=== PATIENT | male | born 1995 | race Caucasian/White ===

== ENCOUNTER 2016-03-26 14:34 | Inpatient (IN) | payer OTHER ==
[2016-03-26 15:03] VITALS: BMI 30.7
[2016-03-26] MEDS ORDERED: SODIUM CHLORIDE 0.9% 1000 ML INFUS.BAG IV PRN (15:28)
[2016-03-26] MEDS ORDERED: SODIUM CHLORIDE 1,000 ML IV ONE (15:28)
--- NOTE | 2016-03-26 15:28 | PDOC ---
History of Present Illness - General Exam Limitations: Clinical Condition - History of Present Illness Initial Comments: 03/26/16 15:34 The patient is a 20-year-old man, from [facility], with a past medical history cerebral palsy, gastroesophageal reflux disease and seizure disorders who presents to the emergency department via EMS for further evaluation of a fever. Upon ER arrival, patient is found to have a temperature of 101.0, HR of 120 and RR of 30 and was immediately placed on a non- rebreather. Upon patient interview, he reports abdominal pain, cough, chills and states that he believes he has a chest cold. History of Present Illness is Limited. Allergies: None Known Past Surgical History: None reported Social History: No tobacco, ETOH and recreational drug use <Atiya Eagle - Last Filed: 03/26/16 15:40> <Kevin Remy - Last Filed: 03/26/16 17:15> - General Chief Complaint: SIRS, Suspected/Possible Stated Complaint: FEVER Time Seen by Provider: 03/26/16 15:19 Past History <Atiya Eagle - Last Filed: 03/26/16 15:40> - Past Medical History Anemia: No Asthma: No Cancer: No Cardiac Disorders: No CVA: No COPD: No CHF: No Dementia: No Diabetes: No GI Disorders: Yes (GERD) Disorders: No HTN: No Hypercholesterolemia: No Liver Disease: No Psychiatric Problems: Yes (DEPRESSION W.PHSYCHOTIC FEATURES,BIPOLAR) Suicide Attempt (Hx): No Seizures: Yes Thyroid Disease: No - Surgical History Abdominal Surgery: No Appendectomy: No Cardiac Surgery: No Cholecystectomy: No Lung Surgery: No Neurologic Surgery: No Orthopedic Surgery: No - Immunization History Immunization Up to Date: Yes - Psycho/Social/Smoking Cessation Hx Anxiety: No Suicidal Ideation: No Smoking History: Never smoked Have you smoked in the past 12 months: No Hx Alcohol Use: No Drug/Substance Use Hx: No Substance Use Type: None Hx Substance Use Treatment: No <Kevin Remy - Last Filed: 03/26/16 17:15> - Past Medical History Allergies/Adverse Reactions: Allergies Allergy/AdvReac Type Severity Reaction Status Date / Time No Known Allergies Allergy Verified 03/26/16 14:54 Home Medications: Ambulatory Orders Bupropion HCl [Wellbutrin -] 200 mg PO HS 03/22/14 Melatonin 6 mg PO HS 03/22/14 Quetiapine Fumarate [Seroquel] 300 mg PO TID 03/22/14 Ascorbic Acid [C-1000] 1,000 mg PO DAILY 08/08/14 Sennosides [Senna -] 2 tab PO BID 08/08/14 Zinc Sulfate 220 mg PO DAILY 08/08/14 Loratadine [Claritin -] 10 mg PO DAILY 06/14/15 Bupropion HCl [Wellbutrin -] 200 mg PO HS tablet 06/21/15 Multivitamins [Multivit ([facility] Formulary)] 1 tab PO DAILY tab 06/21/15 Polyethylene Glycol 3350 [Miralax (For Daily Use) -] 17 gm PO TID #1 bottle Risperidone [Risperdal -] 2 mg PO TID tablet 06/21/15 Review of Systems - Review of Systems Able to Perform ROS?: Yes (Limited 2/2 CP) Constitutional: Yes: Chills, Fever HEENTM: No: Recent change in vision Respiratory: Yes: Cough, Shortness of Breath Cardiac (ROS): No: Chest Pain ABD/GI: No: Diarrhea, Vomiting Neurological: No: Headache <Kevin Remy - Last Filed: 03/26/16 17:15> *Physical Exam - Vital Signs Last Vital Signs Temp Pulse Resp BP Pulse Ox 101.0 F H 120 H 30 H 112/71 100 03/26/16 14:54 03/26/16 14:54 03/26/16 14:54 03/26/16 14:54 03/26/16 14:54 - Physical Exam Comments: 03/26/16 15:34 GENERAL: CP but alert and conversant. Baseline bed bound. Warm to touch. HEAD: Normal with no signs of trauma. EYES: Pupils equal, round and reactive to light, extraocular movements intact, sclera anicteric, conjunctiva clear with no pallor. ENT: Ears normal, nares patent, oropharynx clear without exudates. Moist mucous membranes. NECK: Normal range of motion, supple without lymphadenopathy, JVD, or masses. LUNGS: Decreased and distant breath sounds at the right base No wheeze/ crackles. HEART: Tachycardic,regular rate and rhythm, normal S1 and S2 without murmur or rub. ABDOMEN: Soft/nontender/nondistended. BS wnl. No guarding or rebound. No palpable masses. No hepatosplenomegaly. EXTREMITIES:Baseline muscle atrophy secondary to underlying disease. Baseline extremity contractors. No focal swelling of cellulitis. NEUROLOGICAL: Cranial nerves II through XII grossly intact. Normal speech.. PSYCH: Normal mood, normal affect. SKIN: Warm, Dry, normal turgor, no rashes or lesions noted. <Atiya Eagle - Last Filed: 03/26/16 15:40> - Vital Signs Last Vital Signs Temp Pulse Resp BP Pulse Ox 101.0 F H 120 H 30 H 112/71 100 03/26/16 14:54 03/26/16 14:54 03/26/16 14:54 03/26/16 14:54 03/26/16 14:54 <Kevin Remy - Last Filed: 03/26/16 17:15> ED Treatment Course - LABORATORY CBC & Chemistry Diagram: 03/26/16 16:38 03/26/16 16:38 <Kevin Remy - Last Filed: 03/26/16 17:15> Medical Decision Making - Critical Care Time Total Critical Care Time (minutes): 30 Critical Care Statement: The care of this patient involved high complexity decision making to prevent further life threatening deterioration of the patient 's condition and/or to evalute & treat vital organ system(s) failure or risk of failure. - Medical Decision Making 03/26/16 15:58 A portion of this note was documented by scribe services under my direction. I have reviewed the details of the note, within reason, and agree with the documentation with the following case summary and management plan written by me. 20-year-old male from [facility] with history of CP presents with fever and difficulty breathing. Exam as noted, febrile, tachycardic, tachypneic Abnormal breath sounds at the right base and right mid lung field 20-year-old male with sepsis, possibly secondary to pneumonia. Mental status is at baseline. Sepsis protocol initiated Tylenol for fever Chest x-ray, EKG Antibiotics Admission 03/26/16 16:44 CXR shows L sided infiltrates, treated for HCAP. Awaiting labs and admission. 03/26/16 17:15 CBC normal. Admit to Hospitalist service. <Kevin Remy - Last Filed: 03/26/16 17:15> *DC/Admit/Observation/Transfer <Atiya Eagle - Last Filed: 03/26/16 15:40> - Discharge Dispostion Admit: Yes <Kevin Remy - Last Filed: 03/26/16 17:15> Diagnosis at time of Disposition: Sepsis Qualifiers: Sepsis type: sepsis due to unspecified organism Qualified Code(s): A41.9 - Sepsis, unspecified organism Cerebral palsy Qualifiers: Cerebral palsy type: unspecified type Qualified Code(s): G80.9 - Cerebral palsy , unspecified Pneumonia Qualifiers: Pneumonia type: due to unspecified organism Laterality: left Lung location: lower lobe of lung Qualified Code(s): J18.9 - Pneumonia, unspecified organism - Discharge Dispostion Condition at time of disposition: Fair - Referrals Referrals: Gwyn Ordonez [Primary Care Provider] -
[2016-03-26] MEDS ORDERED: ACETAMINOPHEN 1000 MG/100 ML VIAL (NON FORMULARY) IVPB ONE (15:29)
[2016-03-26] MEDS ORDERED: VANCOMYCIN 1,000 MG in DEXTROSE 5%-WATER - 250 ML IVPB ONE (16:30)
[2016-03-26] MEDS ORDERED: LEVOFLOXACIN 500 MG IVPB 100 ML IVPB ONE ×2 (16:30→16:47)
[2016-03-26 16:46] LABS: BASOPHIL 0.5 % (0-2.0); EOSINOPHIL 1.8 % (0-4.5); MCH 28.9 pg (25.7-33.7); MCHC 33.5 g/dl (32.0-35.9); MEAN CELL VOLUME 86.3 fl (80-96); MEAN PLT VOLUME 7.5 fl (7.5-11.1); NEUTROPHILS 68.5 % (42.8-82.8); PLATELET COUNT 260 K/MM3 (134-434); RDW 13.6 % (11.9-15.9); WHITE BLOOD COUNT 8.6 K/mm3 (4.0-10.0)
[2016-03-26] MEDS ORDERED: ACETAMINOPHEN INJECTION 100 ML IVPB ONE (16:47)
[2016-03-26 16:49] LABS: VENOUS BLOOD GAS HCO3 24.7 meq/L (22-29); VENOUS PH 7.42 (7.31-7.41)
[2016-03-26 17:19] LABS: ALBUMIN 3.8 g/dl (3.4-5.0); ANION GAP 8 (8-16); CALCIUM 8.7 mg/dL (8.5-10.1); CO2 28 mmol/L (21-32); GLUCOSE,RANDOM 96 mg/dL (74-106)
[2016-03-26 17:20] LABS: INR 1.25 (0.82-1.09); PROTHROMBIN TIME (PATIENT) 13.8 SEC (9.98-11.88)
[2016-03-26 17:23] LABS: ACTIVATED PTT 32.4 SECONDS (26.9-34.4)
[2016-03-26 17:24] LABS: ALK PHOS 109 U/L (45-117); BILIRUBIN,TOTAL 0.5 mg/dL (0.2-1.0); CREATININE 0.7 mg/dL (0.7-1.3); SGOT/AST 12 U/L (15-37); SGPT/ALT 23 U/L (12-78); TOT PROT 7.1 g/dl (6.4-8.2); TROPONIN I < 0.02 ng/ml (0.00-0.05)
--- NOTE | 2016-03-26 19:15 | PN ---
[id number] the patient. I reviewed the resident's note and discussed the case with the resident. I agree with the resident's findings and plan as documented. SUBJECTIVE: 20 yo male presenting with fever and ride-sided posterior thoracic pain for 2 days. The patient rates the pain as a 7/10. He also notes associated nausea, productive cough with green and white sputum. Patient also reports chronic abdominal discomfort and distension. PMH: Cerebral palsy, GERD, seizure disorders, abdominal distension PSH: none reported SH: No tobacco, ETOH and recreational drug use OBJECTIVE: Last Vital Signs Temp Pulse Resp BP Pulse Ox 101.0 F H 120 H 30 H 112/71 100 03/26/16 14:54 03/26/16 14:54 03/26/16 14:54 03/26/16 14:54 03/26/16 14:54 GENERAL: Awake, alert, and fully oriented, in no acute distress HEENT: Atraumatic. PERRLA, EOMI. Moist mucosa. No JVD LUNGS: No distress, speaks full sentences, clear to auscultation bilaterally HEART: Regular rate and rhythm, normal S1 and S2, no murmurs, rubs or gallops, peripheral pulses normal and equal bilaterally. ABDOMEN: Tense, distended, normoactive bowel sounds. No guarding, no rebound. No masses EXTREMITIES: Normal inspection, Normal range of motion, no edema. No clubbing or cyanosis. NEUROLOGICAL: Cranial nerves II through XII grossly intact. Normal speech, normal gait, no focal sensorimotor deficits SKIN: Warm, Dry, normal turgor, no rashes or lesions noted. CBCD WBC 8.6 K/mm3 (4.0-10.0) D 03/26/16 16:38 RBC 4.54 M/mm3 (4.00-5.60) 03/26/16 16:38 Hgb 13.1 GM/dL (11.7-16.9) 03/26/16 16:38 Hct 39.2 % (35.4-49) 03/26/16 16:38 MCV 86.3 fl (80-96) 03/26/16 16:38 MCHC 33.5 g/dl (32.0-35.9) 03/26/16 16:38 RDW 13.6 % (11.9-15.9) 03/26/16 16:38 Plt Count 260 K/MM3 (134-434) 03/26/16 16:38 MPV 7.5 fl (7.5-11.1) 03/26/16 16:38 CMP Sodium 141 mmol/L (136-145) 03/26/16 16:38 Potassium 4.3 mmol/L (3.5-5.1) 03/26/16 16:38 Chloride 105 mmol/L (98-107) 03/26/16 16:38 Carbon Dioxide 28 mmol/L (21-32) 03/26/16 16:38 Anion Gap 8 (8-16) 03/26/16 16:38 BUN 8 mg/dL (7-18) 03/26/16 16:38 Creatinine 0.7 mg/dL (0.7-1.3) 03/26/16 16:38 Creat Clearance w eGFR > 60 (>60) 03/26/16 16:38 Calcium 8.7 mg/dL (8.5-10.1) 03/26/16 16:38 Total Bilirubin 0.5 mg/dL (0.2-1.0) D 03/26/16 16:38 AST 12 U/L (15-37) L 03/26/16 16:38 ALT 23 U/L (12-78) 03/26/16 16:38 Alkaline Phosphatase 109 U/L (45-117) 03/26/16 16:38 Total Protein 7.1 g/dl (6.4-8.2) 03/26/16 16:38 Albumin 3.8 g/dl (3.4-5.0) 03/26/16 16:38 Chest X-Ray Impression: Left parahilar, left retrocardiac infiltrate is noted. No evidence of pleural effusion or pneumothorax. Shallow inspiration. Air distended colon is seen in upper abdomen beneath the diaphragm. ASSESSMENT AND PLAN: 1.) HCAP -Antibiotics vancomycin, levaquin -Nebulizations Q6 hours -Tylenol PRN -Continue home medications Documentation prepared by Tia López, acting as medical imaging technologist for Juanis Johnson M.D. <Juanis Johnson - Last Filed: 04/03/16 19:58> Teaching Attending Note Name of Resident: Shivani Love
[2016-03-26] MEDS ORDERED: ALBUTEROL SO4 2.5/IPRATROPIUM 0.5 INH SOL 3 ML VIAL.NEB. NEB PRN (20:28)
[2016-03-26] MEDS ORDERED: ENOXAPARIN NA (PORCINE) 30 MG/0.3 ML DISP.SYRIN SQ SCH (20:30)
--- NOTE | 2016-03-26 20:38 | HP ---
CHIEF COMPLAINT: Right sided chest pain, sob, cough PCP: HISTORY OF PRESENT ILLNESS: 20 year old male, resident of [facility], was sent from [facility] to the ED via EMS for the evaluation of fever. As per the patient, he mentions he had right sided chest pain, sharp in quality, 7/10 in intensity, radiating towards the back, associated with nausea but no vomiting. Chest pain was associated with productive sputum, bringing up greenish/whitish sputum, no blood noticed along with SOB on/off. Patient mentions his SOB is chronic. Denies fever, chills, rigors or sweating. Patient also complaints of RLQ abdominal pain, x 3-4days, sharp in nature, 7/10 in intensity with bloating of abdomen. States that he has had distention, bloating is a chronic problem but the pain is new. Denies headache, fever, chills, rigors or sweating. ER course was notable for: (1) CBC, CMP (2) CXR (3) Recent Travel: None PAST MEDICAL HISTORY: cerebral palsy, gastroesophageal reflux disease, depression with psychotic features and seizure disorders Hospitalization: Last admitted on 06/13/2016 and discharged on 06/20/2016 admitted for sepsis leukopenia with prominent left shift and LLE cellulitis. Fecal impaction with ? bowel ischemia PAST SURGICAL HISTORY: Baclofen pump placed Social History: Smoking:None Alcohol: None Drugs: None Family History: Allergies No Known Allergies Allergy (Verified 03/26/16 14:54) HOME MEDICATIONS: Medication Instructions Recorded Bupropion HCl [Wellbutrin -] 200 mg PO HS 03/22/14 Melatonin 6 mg PO HS 03/22/14 Quetiapine Fumarate [Seroquel] 300 mg PO TID 03/22/14 Ascorbic Acid [C-1000] 1,000 mg PO DAILY 08/08/14 Sennosides [Senna -] 2 tab PO BID 08/08/14 Zinc Sulfate 220 mg PO DAILY 08/08/14 Loratadine [Claritin -] 10 mg PO DAILY 06/14/15 Bupropion HCl [Wellbutrin -] 200 mg PO HS tablet 06/21/15 Multivitamins [Multivit ([facility] 1 tab PO DAILY tab 06/21/15 Formulary)] Polyethylene Glycol 3350 [Miralax 17 gm PO TID #1 bottle 06/21/15 (For Daily Use) -] Risperidone [Risperdal -] 2 mg PO TID tablet 06/21/15 REVIEW OF SYSTEMS CONSTITUTIONAL: Present: Fever Absent: fever, chills, diaphoresis, generalized weakness, malaise, loss of appetite, weight change HEENT: Absent: rhinorrhea, nasal congestion, throat pain, throat swelling, difficulty swallowing, mouth swelling, ear pain, eye pain, visual changes CARDIOVASCULAR: Present: Chest pain Absent: syncope, palpitations, irregular heart rate, lightheadedness, peripheral edema RESPIRATORY: Absent: cough, shortness of breath, dyspnea with exertion, orthopnea, wheezing, stridor, hemoptysis GASTROINTESTINAL: Present: abdominal pain Absent: abdominal distension, nausea, vomiting, diarrhea, constipation, melena, hematochezia GENITOURINARY: Absent: dysuria, frequency, urgency, hesitancy, hematuria, flank pain, genital pain MUSCULOSKELETAL: Absent: myalgia, arthralgia, joint swelling, back pain, neck pain SKIN: Absent: rash, itching, pallor HEMATOLOGIC/IMMUNOLOGIC: Absent: easy bleeding, easy bruising, lymphadenopathy, frequent infections ENDOCRINE: Absent: unexplained weight gain, unexplained weight loss, heat intolerance, cold intolerance NEUROLOGIC: Absent: headache, focal weakness or paresthesias, dizziness, unsteady gait, seizure, mental status changes, bladder or bowel incontinence PSYCHIATRIC: Absent: anxiety, depression, suicidal or homicidal ideation, hallucinations. PHYSICAL EXAMINATION GENERAL: Patient is comfortably lying in bed, Awake, alert, and fully oriented, in no acute distress. HEAD: Normal with no signs of trauma. EYES: EOM intact, no pallor or icterus. EARS, NOSE, THROAT: Ears normal. Moist mucous membranes. NECK: Supple LUNGS: Decreased Breath sounds on the left lung base, crackles on the left lung base, no wheeze. HEART: Regular rate and rhythm, normal S1 and S2 without murmur, rub or gallop. ABDOMEN: Soft,tenderness over the right lower quadrant, distended +, normoactive bowel sounds, Hepatomegaly splenomegaly couldn't be appreciated. MUSCULOSKELETAL: Normal range of motion at all joints. No bony deformities or tenderness. No CVA tenderness. UPPER EXTREMITIES: 2+ pulses, warm, well-perfused. No cyanosis. No clubbing. No peripheral edema. LOWER EXTREMITIES: 2+ pulses, warm, well-perfused. No calf tenderness. No peripheral edema. NEUROLOGICAL: Delayed speech but sounds clear. At baseline, cannot walk. PSYCHIATRIC: Cooperative. Good eye contact. Appropriate mood and affect. SKIN: Warm, dry, normal turgor, no rashes or lesions noted. Laboratory Results - last 24 hr 03/26/16 19:20 Lactic Acid 0.724 03/26/2016CXR Left parahilar Left retrocardiac infiltrate, shallow respiration. Air distended colon seen in the upper abdomen beneath the diaphragm. ASSESSMENT/PLAN: 20 year old male, with PMH of cerebral palsy, gastroesophageal reflux disease, depression with psychotic features and seizure disorders resident of [facility], was sent from [facility] to the ED via EMS for the evaluation of fever. # Most likely Health Care Associated Pneumonia Patient presented with fever, productive cough, resident of a senior care In the ED, patient received Levofloxacin, Tylenol, Vancomycin. Patient admitted in Med-surg CXR showed Left parahilar Left retrocardiac infiltrate. Treating with Duoneb, Levofloxacin, 1gm of Vancomycin Home meds continued Nasopharyngeal swab for Influenza sent Monitor vitals # Abdominal pain Patient previously admitted with fecal impaction ? bowel ischemia Ordered Abdominal x-ray to r/o perforation or any acute pathology # GERD Added Protonix PO No acute symptoms # FEN Not on IV fluids Electrolytes to be repeated tomorrow Dyphagia puree diet- couldn't confirm if he can swallow. Please confirm his diet with the senior care. # Prophylaxis For GI: On Protonix For DVT: On SCD's Illness, Investigation and Plan of care explained to the patient. He verbalized understanding. Case seen and discussed with Dr. Johnson. Visit type - Emergency Visit Emergency Visit: Yes ED Registration Date: 03/26/16 Care time: The patient presented to the Emergency Department on the above date and was hospitalized for further evaluation of their emergent condition. - New Patient This patient is new to me today: Yes Date on this admission: 03/27/16 - Critical Care Critical Care patient: No
[2016-03-26] MEDS ORDERED: QUEtiapine FUMARATE 300 MG TABLET PO SCH (22:00)
[2016-03-26] MEDS ORDERED: PATIENT'S OWN MEDICATION (NON-FORMULARY) (Melatonin [Melatonin] 6 MG) PO SCH (22:00)
[2016-03-26] MEDS: ZINC SULFATE 220 MG CAPSULE (FP) PO SCH (23:53)
[2016-03-26] MEDS: POLYETHYLENE GLYCOL 3350 119 GM BTL PO SCH (23:56)
[2016-03-26] MEDS: MULTIVITAMINS (DAILY MVI) TABLET (FP) PO SCH (23:56)
[2016-03-26] MEDS: ASCORBIC ACID 500 MG TABLET (FP) PO SCH (23:56)
[2016-03-26] MEDS: risperiDONE 1 MG TABLET (FP) PO SCH (23:56)
[2016-03-26] MEDS: PANTOPRAZOLE 20 MG TABLET (FP) PO SCH (23:56)
[2016-03-26] MEDS: SENNOSIDES 8.6MG TABLET (FP) PO SCH (23:57)
[2016-03-26] MEDS: QUEtiapine FUMARATE 100 MG TABLET (FP) PO SCH (23:57)
[2016-03-27] MEDS ORDERED: LEVOFLOXACIN 500 MG IVPB 100 ML IVPB SCH (06:00)
[2016-03-27] MEDS ORDERED: LEVOFLOXACIN 500 MG IVPB 100 ML IVPB ONE (06:56)
[2016-03-27 08:32] LABS: BASOPHIL 0.7 % (0-2.0); EOSINOPHIL 1.5 % (0-4.5); MCH 29.3 pg (25.7-33.7); MCHC 33.7 g/dl (32.0-35.9); MEAN CELL VOLUME 86.9 fl (80-96); MEAN PLT VOLUME 7.8 fl (7.5-11.1); NEUTROPHILS 69.2 % (42.8-82.8); PLATELET COUNT 219 K/MM3 (134-434); RDW 13.6 % (11.9-15.9)
--- NOTE | 2016-03-27 08:48 | PN ---
Teaching Attending Note Name of Resident: Gale Pichardo ATTENDING PHYSICIAN STATEMENT I saw and evaluated the patient. I reviewed the resident's note and discussed the case with the resident. I agree with the resident's findings and plan as documented. SUBJECTIVE: Patient is having fever. pleasant, answers to the questions. Mother at bedside. OBJECTIVE: Vital Signs Temperature 101.0 F H 03/26/16 14:54 Pulse Rate 120 H 03/26/16 14:54 Respiratory Rate 30 H 03/26/16 14:54 Blood Pressure 112/71 03/26/16 14:54 O2 Sat by Pulse Oximetry (%) 100 03/26/16 14:54 GENERAL: The patient is awake, alert, and fully oriented, in no acute distress. HEAD: Normal with no signs of trauma. EYES: PERRL, extraocular movements intact, sclera anicteric, conjunctiva clear. No ptosis. ENT: Ears normal, nares patent, oropharynx clear without exudates, dry mucous membranes. NECK: Trachea midline, full range of motion, supple. LUNGS: Breath sounds equal, diminished breath sounds B/L, no wheezes, no crackles, no accessory muscle use. HEART: Regular rate and rhythm, S1, S2 without murmur, rub or gallop. ABDOMEN: Soft, nontender, distended, normoactive bowel sounds, no rebound, no hepatosplenomegaly, no masses. EXTREMITIES: 2+ pulses, warm, well-perfused, no edema. NEUROLOGICAL: Cranial nerves II through XII grossly intact. Slurred speech, not walking. PSYCH: Normal mood, normal affect. SKIN: Warm, dry, normal turgor, no rashes or lesions noted. CBCD WBC 7.0 K/mm3 (4.0-10.0) 03/27/16 06:20 RBC 4.36 M/mm3 (4.00-5.60) 03/27/16 06:20 Hgb 12.8 GM/dL (11.7-16.9) 03/27/16 06:20 Hct 37.9 % (35.4-49) 03/27/16 06:20 MCV 86.9 fl (80-96) 03/27/16 06:20 MCHC 33.7 g/dl (32.0-35.9) 03/27/16 06:20 RDW 13.6 % (11.9-15.9) 03/27/16 06:20 Plt Count 219 K/MM3 (134-434) 03/27/16 06:20 MPV 7.8 fl (7.5-11.1) 03/27/16 06:20 CMP Sodium 139 mmol/L (136-145) 03/27/16 06:20 Potassium 3.9 mmol/L (3.5-5.1) 03/27/16 06:20 Chloride 105 mmol/L (98-107) 03/27/16 06:20 Carbon Dioxide 24 mmol/L (21-32) 03/27/16 06:20 Anion Gap 10 (8-16) 03/27/16 06:20 BUN 8 mg/dL (7-18) 03/27/16 06:20 Creatinine 0.5 mg/dL (0.7-1.3) L D 03/27/16 06:20 Creat Clearance w eGFR > 60 (>60) 03/27/16 06:20 Random Glucose 80 mg/dL (74-106) 03/27/16 06:20 Calcium 8.2 mg/dL (8.5-10.1) L 03/27/16 06:20 Total Bilirubin 0.6 mg/dL (0.2-1.0) 03/27/16 06:20 AST 13 U/L (15-37) L 03/27/16 06:20 ALT 20 U/L (12-78) 03/27/16 06:20 Alkaline Phosphatase 98 U/L (45-117) 03/27/16 06:20 Total Protein 6.6 g/dl (6.4-8.2) 03/27/16 06:20 Albumin 3.5 g/dl (3.4-5.0) 03/27/16 06:20 CARDIAC ENZYMES Creatine Kinase 53 IU/L (39-308) 03/26/16 16:38 Troponin I < 0.02 ng/ml (0.00-0.05) 03/26/16 16:38 Current Medications Generic Name Dose Route Start Last Admin Trade Name Freq PRN Reason Stop Dose Admin Albuterol/Ipratropium 1 amp 03/26/16 20:28 Duoneb - NEB Q6H PRN SHORTNESS OF BREATH Ascorbic Acid 1,000 mg 03/26/16 20:30 03/27/16 12:05 Vitamin C - PO 1,000 mg DAILY SINA Administration Bupropion HCl 200 mg 03/27/16 10:00 03/27/16 12:07 Wellbutrin - PO 200 mg DAILY SINA Administration Enoxaparin Sodium 40 mg 03/27/16 04:26 03/27/16 12:02 Lovenox - SQ 40 mg DAILY SINA Administration Piperacillin Sod/Tazobactam Sod 50 mls @ 100 mls/hr 03/27/16 15:00 03/27/16 19: 15 Zosyn 3.375gm Ivpb (Pre-Docked) IVPB Not Given Q8H-IV SINA Sodium Chloride 1,000 mls @ 100 mls/hr 03/27/16 16:15 03/27/16 16:22 Normal Saline - IV 03/29/16 02:14 100 mls/hr ASDIR SINA Administration Multivitamins/Minerals/Vitamin C 1 tab 03/26/16 20:30 03/27/16 12:04 Tab-A-Vit - PO 1 tab DAILY SINA Administration Non-Formulary Medication 6 mg 03/26/16 22:00 Melatonin [Melatonin] PO HS SINA Pantoprazole Sodium 20 mg 03/26/16 20:30 03/27/16 12:03 Protonix - PO 20 mg DAILY SINA Administration Polyethylene Glycol 17 gm 03/26/16 22:00 03/27/16 16:06 Miralax (For Daily Use) - PO Not Given TID SINA Quetiapine Fumarate 300 mg 03/26/16 22:30 03/27/16 16:21 Seroquel - PO 300 mg TID SINA Administration Risperidone 2 mg 03/26/16 22:00 03/27/16 16:21 Risperdal - PO 2 mg TID SINA Administration Senna 2 tab 03/26/16 22:00 03/27/16 12:04 Senna - PO 2 tab BID SINA Administration Sodium Chloride 860 ml 03/26/16 15:28 Normal Saline - IV Q20M PRN MAP<65mm Hg OR SBP <90 Zinc Sulfate 220 mg 03/26/16 20:30 03/27/16 12:03 Orazinc - PO 220 mg DAILY SINA Administration Medication Instructions Recorded Melatonin 6 mg PO HS PRN 03/22/14 Quetiapine Fumarate [Seroquel] 300 mg PO TID 03/22/14 Ascorbic Acid [C-1000] 1,000 mg PO DAILY 08/08/14 Sennosides [Senna -] 2 tab PO BID 08/08/14 Zinc Sulfate 220 mg PO DAILY 08/08/14 Loratadine [Claritin -] 10 mg PO DAILY 06/14/15 Bupropion HCl [Wellbutrin -] 200 mg PO HS tablet 06/21/15 Multivitamins [Multivit ([facility] 1 tab PO DAILY tab 06/21/15 Formulary)] Polyethylene Glycol 3350 [Miralax 17 gm PO TID #1 bottle 06/21/15 (For Daily Use) -] Risperidone [Risperdal -] 2 mg PO TID tablet 06/21/15 Fluticasone Propionate [Flovent 44 mcg IH BID 03/27/16 Diskus] Loperamide HCl [Loperamide] 2 mg PO Q4H PRN 03/27/16 Melatonin 3 mg PO HS 03/27/16 Simethicone 40 mg PO BID 03/27/16 ASSESSMENT AND PLAN: 20 year old male, with PMH of cerebral palsy, gastroesophageal reflux disease, depression with psychotic features and seizure disorders resident of [facility], was sent from half-way to the ED via EMS for the evaluation of fever. #Health Care Associated Pneumonia on IV antibiotic, seen by Presley Ventura on Zosyn iv #ABDOMINAL DISTENTION Patient GETS FECAL impaction with POSSIBLE SBO as per his mother who is bedside. -Ordered Abdominal x-ray to r/o perforation # Hx of GERD ON PO protonix continue Prophylaxis GI: On Protonix ; DVT px: On SCD's
[2016-03-27 09:19] LABS: ALBUMIN 3.5 g/dl (3.4-5.0); ANION GAP 10 (8-16); BILIRUBIN,TOTAL 0.6 mg/dL (0.2-1.0); CALCIUM 8.2 mg/dL (8.5-10.1); CO2 24 mmol/L (21-32); CREATININE 0.5 mg/dL (0.7-1.3); GLUCOSE,RANDOM 80 mg/dL (74-106); SGOT/AST 13 U/L (15-37); SGPT/ALT 20 U/L (12-78); TOT PROT 6.6 g/dl (6.4-8.2)
[2016-03-27 09:20] LABS: ALK PHOS 98 U/L (45-117)
[2016-03-27] MEDS ORDERED: VANCOMYCIN 1,000 MG in DEXTROSE 5%-WATER - 250 ML IVPB SCH (10:00)
[2016-03-27] MEDS: ENOXAPARIN NA (PORCINE) 40 MG/0.4 ML DISP.SYRIN SQ SCH (12:02)
[2016-03-27] MEDS ORDERED: ENOXAPARIN NA (PORCINE) 40 MG/0.4 ML DISP.SYRIN SQ ONE (12:02)
[2016-03-27] MEDS: PANTOPRAZOLE 20 MG TABLET (FP) PO SCH (12:03)
[2016-03-27] MEDS: ZINC SULFATE 220 MG CAPSULE (FP) PO SCH (12:03)
[2016-03-27] MEDS: MULTIVITAMINS (DAILY MVI) TABLET (FP) PO SCH (12:04)
[2016-03-27] MEDS: SENNOSIDES 8.6MG TABLET (FP) PO SCH ×2 (12:04→21:42)
[2016-03-27] MEDS: ASCORBIC ACID 500 MG TABLET (FP) PO SCH (12:05)
[2016-03-27] MEDS ORDERED: buPROPion HCL 100 MG TABLET ONE (12:06)
[2016-03-27] MEDS: buPROPion HCL 100 MG TABLET PO SCH (12:07)
[2016-03-27] MEDS ORDERED: ACETAMINOPHEN 325 MG TABLET (FP) PO ONE (13:02)
[2016-03-27] MEDS ORDERED: ACETAMINOPHEN 325 MG TABLET (FP) ONE (13:03)
--- NOTE | 2016-03-27 14:57 | PN ---
Progress Note (short form) - Note Progress Note: ID Consult dictated HCAP Possible sepsis secondary to pneumonia Cerebral palsy Obtain rapid flu ag test Sputum c/s, legionella/ pneumococcal ag Empiric Zosyn
--- NOTE | 2016-03-27 15:46 | CONS ---
DATE OF CONSULTATION: HISTORY: The patient is a 20-year-old male with a history of cerebral palsy, bipolar disorder evaluated for pneumonia. The patient is a resident of a nursing facility. The mother reports that approximately 1 week ago he began to develop a cough, which persisted. It was initially dry in nature. Over the past 24 hours he had developed fever to 101 as well as increasing cough, shortness of breath, tachycardia. He was transferred to the emergency room where chest x-ray shows increased markings left perihilar area. He was empirically treated with vancomycin and Levaquin. The patient is awake and alert. He does have a cough. He denies any chest pain or shortness of breath. He has received influenza vaccine. His last hospitalization was in June 2015 for a cellulitis. According to the mother, there are other residents at the facility who have respiratory tract illnesses. No recent antibiotic therapy. PAST MEDICAL HISTORY: Positive for cerebral palsy, bipolar disorder, seizure disorder, gastroesophageal reflux, cellulitis, history of chronic constipation and fecal impaction. PAST SURGICAL HISTORY: Status post baclofen pump. ALLERGIES: No known allergies. MEDICATIONS: Include melatonin, Lovenox, Wellbutrin, Seroquel, Risperdal, Protonix, vitamin C. SOCIAL HISTORY: He is a resident of a shelter facility. No active tobacco or alcohol use. REVIEW OF SYSTEMS: Neurologic: Positive for cerebral palsy and spasticity. No loss of consciousness, seizure activity, or focal weakness. Cardiac: Negative chest pain or palpitations. Respiratory: As per HPI. Gastrointestinal: Positive for chronic constipation and fecal impaction. Genitourinary: Negative for urinary tract infection. LABORATORY DATA: White count 7, hematocrit 37.9, platelet count 219, BUN 8, creatinine 0.5. Urinalysis pending. Flu swab pending. PHYSICAL EXAMINATION: General: He is awake and alert. He is not acutely toxic appearing. He is not acutely short of breath. Vital Signs: Temperature 101, blood pressure 112/71, pulse 120, regular, respirations 26 per minute. HEENT: Sclerae anicteric. Heart: Sounds S1, S2. Tachycardic. Lungs: Rhonchi bilaterally. Abdomen: Distended, tympanitic. No tenderness elicited. Extremities: Positive for edema and contractures. IMPRESSION: 1. Healthcare-associated pneumonia. 2. Possible sepsis secondary to pneumonia. 3. History of cerebral palsy. 4. History of chronic constipation and fecal impaction. PLAN: Obtain rapid influenza antigen test, sputum culture, urine legionella, and pneumococcal antigens. Empiric Zosyn for treatment of healthcare-associated pneumonia. Await cultures. Case discussed with the patient's mother present at the time of the examination. Thank you for the kind referral. JEANNIE MCGILL M.D. [id number]
[2016-03-27] MEDS: POLYETHYLENE GLYCOL 3350 119 GM BTL PO SCH ×3 (15:56→23:26)
[2016-03-27] MEDS: risperiDONE 1 MG TABLET (FP) PO SCH ×3 (15:57→21:43)
[2016-03-27] MEDS: QUEtiapine FUMARATE 100 MG TABLET (FP) PO SCH ×3 (15:57→21:43)
[2016-03-27] MEDS: PIPERACILLIN/TAZOB 3.375 GM 50 ML IVPB SCH ×2 (16:21→19:15)
[2016-03-27] MEDS: SODIUM CHLORIDE 1,000 ML IV SCH (16:22)
[2016-03-27 16:24] LABS: URINE APPEARANCE CLEAR; URINE BILIRUBIN NEGATIVE (NEGATIVE); URINE BLOOD NEGATIVE (NEGATIVE); URINE COLOR AMBER; URINE GLUCOSE (UA) NEGATIVE (NEGATIVE); URINE KETONE TRACE (NEGATIVE); URINE LEUK ESTERASE NEGATIVE (NEGATIVE); URINE NITRITE NEGATIVE (NEGATIVE); URINE PROTEIN NEGATIVE (NEGATIVE); URINE UROBILINOGEN NEGATIVE E.U./dl (0.2-1.0)
--- NOTE | 2016-03-27 16:53 | EKG ---
Test Reason : Blood Pressure : / mmHG Vent. Rate : 089 BPM Atrial Rate : 089 BPM P-R Int : 110 ms QRS Dur : 102 ms QT Int : 388 ms P-R-T Axes : 023 011 009 degrees QTc Int : 472 ms SINUS RHYTHM WITH SHORT GA POSSIBLE LEFT ATRIAL ENLARGEMENT INCOMPLETE RIGHT BUNDLE BRANCH BLOCK NONSPECIFIC T WAVE ABNORMALITY PROLONGED QT ABNORMAL ECG WHEN COMPARED WITH ECG OF 14-JUN-2015 04:24, NO SIGNIFICANT CHANGE WAS FOUND Confirmed by TARA GOODWIN MD ([id number]) on 03/27/2016 4:52:58 PM Referred By: Confirmed By:TARA GOODWIN MD
--- NOTE | 2016-03-27 18:20 | PN ---
Physical Exam: SUBJECTIVE: Patient seen and examined. He is coughing, SOB. He denies chest pain , abdominal pain. OBJECTIVE: Vital Signs Period Temp Pulse Resp BP Sys/Davis Pulse Ox Last 24 Hr 100.6 F 110 22-30 131/60 96-98 GENERAL: The patient is awake, alert, and fully oriented, in no acute distress. HEAD: Normal with no signs of trauma. EYES: PERRL, extraocular movements intact, sclera anicteric, conjunctiva clear. No ptosis. ENT: Ears normal, nares patent, oropharynx clear without exudates, dry mucous membranes. NECK: Trachea midline, full range of motion, supple. LUNGS: Breath sounds equal, diminished breath sounds B/L, no wheezes, no crackles, no accessory muscle use. HEART: Regular rate and rhythm, S1, S2 without murmur, rub or gallop. ABDOMEN: Soft, nontender, distended, normoactive bowel sounds, no guarding, no rebound, no hepatosplenomegaly, no masses. EXTREMITIES: 2+ pulses, warm, well-perfused, no edema. NEUROLOGICAL: Cranial nerves II through XII grossly intact. Slurred speech, not walking. PSYCH: Normal mood, normal affect. SKIN: Warm, dry, normal turgor, no rashes or lesions noted. Laboratory Results - last 24 hr 03/26/16 03/27/16 03/27/16 19:20 06:20 06:20 WBC 7.0 RBC 4.36 Hgb 12.8 Hct 37.9 MCV 86.9 MCHC 33.7 RDW 13.6 Plt Count 219 MPV 7.8 Neutrophils % 69.2 Lymphocytes % 11.6 Monocytes % 17.0 H Eosinophils % 1.5 Basophils % 0.7 Sodium 139 Potassium 3.9 Chloride 105 Carbon Dioxide 24 Anion Gap 10 BUN 8 Creatinine 0.5 L D Creat Clearance w eGFR > 60 Random Glucose 80 Lactic Acid 0.724 Calcium 8.2 L Total Bilirubin 0.6 AST 13 L ALT 20 Alkaline Phosphatase 98 Total Protein 6.6 Albumin 3.5 Urine Color Urine Appearance Urine pH Ur Specific [place] Urine Protein Urine Glucose (UA) Urine Ketones Urine Blood Urine Nitrite Urine Bilirubin Urine Urobilinogen Ur Leukocyte Esterase 03/27/16 15:43 WBC RBC Hgb Hct MCV MCHC RDW Plt Count MPV Neutrophils % Lymphocytes % Monocytes % Eosinophils % Basophils % Sodium Potassium Chloride Carbon Dioxide Anion Gap BUN Creatinine Creat Clearance w eGFR Random Glucose Lactic Acid Calcium Total Bilirubin AST ALT Alkaline Phosphatase Total Protein Albumin Urine Color [place] Urine Appearance Clear Urine pH 5.0 Ur Specific [place] 1.027 Urine Protein Negative Urine Glucose (UA) Negative Urine Ketones Trace H Urine Blood Negative Urine Nitrite Negative Urine Bilirubin Negative Urine Urobilinogen Negative Ur Leukocyte Esterase Negative Active Medications Generic Name Dose Route Start Last Admin Trade Name Freq PRN Reason Stop Dose Admin Albuterol/Ipratropium 1 amp 03/26/16 20:28 Duoneb - NEB Q6H PRN SHORTNESS OF BREATH Ascorbic Acid 1,000 mg 03/26/16 20:30 03/27/16 12:05 Vitamin C - PO 1,000 mg DAILY [facility] Administration Bupropion HCl 200 mg 03/27/16 10:00 03/27/16 12:07 Wellbutrin - PO 200 mg DAILY [facility] Administration Enoxaparin Sodium 40 mg 03/27/16 04:26 03/27/16 12:02 Lovenox - SQ 40 mg DAILY [facility] Administration Piperacillin Sod/Tazobactam Sod 50 mls @ 100 mls/hr 03/27/16 15:00 03/27/16 16: 21 Zosyn 3.375gm Ivpb (Pre-Docked) IVPB 100 mls/hr Q8H-IV [facility] Administration Sodium Chloride 1,000 mls @ 100 mls/hr 03/27/16 16:15 03/27/16 16:22 Normal Saline - IV 03/29/16 02:14 100 mls/hr ASDIR [facility] Administration Multivitamins/Minerals/Vitamin C 1 tab 03/26/16 20:30 03/27/16 12:04 Tab-A-Vit - PO 1 tab DAILY [facility] Administration Non-Formulary Medication 6 mg 03/26/16 22:00 Melatonin [Melatonin] PO HS [facility] Pantoprazole Sodium 20 mg 03/26/16 20:30 03/27/16 12:03 Protonix - PO 20 mg DAILY [facility] Administration Polyethylene Glycol 17 gm 03/26/16 22:00 03/27/16 16:06 Miralax (For Daily Use) - PO Not Given TID [facility] Quetiapine Fumarate 300 mg 03/26/16 22:30 03/27/16 16:21 Seroquel - PO 300 mg TID [facility] Administration Risperidone 2 mg 03/26/16 22:00 03/27/16 16:21 Risperdal - PO 2 mg TID [facility] Administration Senna 2 tab 03/26/16 22:00 03/27/16 12:04 Senna - PO 2 tab BID [facility] Administration Sodium Chloride 860 ml 03/26/16 15:28 Normal Saline - IV Q20M PRN MAP<65mm Hg OR SBP <90 Zinc Sulfate 220 mg 03/26/16 20:30 03/27/16 12:03 Orazinc - PO 220 mg DAILY [facility] Administration 03/26/2016 CXR Left parahilar Left retrocardiac infiltrate, shallow respiration. Air distended colon seen in the upper abdomen beneath the diaphragm. ASSESSMENT/PLAN: 20 year old male, with PMH of cerebral palsy, gastroesophageal reflux disease, depression with psychotic features and seizure disorders resident of [facility], was sent from [facility] to the ED via EMS for the evaluation of fever. Most likely Health Care Associated Pneumonia -In the ED, patient received Levofloxacin, Tylenol, Vancomycin. -Patient admitted in Med-surg -ID consulted -Treating with Duoneb, Levofloxacin, 1gm of Vancomycin -Home meds continued -Nasopharyngeal swab for Influenza sent -sputum culture pending Abdominal pain -Patient previously admitted with fecal impaction ? bowel ischemia -Ordered Abdominal x-ray to r/o perforation or any acute pathology GERD -Added Protonix PO -No acute symptoms FEN -Not on IV fluids -No changes -changed to honey liquid diet Prophylaxis For GI: On Protonix 20 mg PO For DVT: On SCD's Problem List - Problems (1) Cerebral palsy Code(s): G80.9 - CEREBRAL PALSY, UNSPECIFIED Qualifiers: Cerebral palsy type: unspecified type Qualified Code(s): G80.9 - Cerebral palsy, unspecified (2) Pneumonia Code(s): J18.9 - PNEUMONIA, UNSPECIFIED ORGANISM Qualifiers: Pneumonia type: due to unspecified organism Laterality: left Lung location: lower lobe of lung Qualified Code(s): J18.9 - Pneumonia, unspecified organism Visit type - Emergency Visit Emergency Visit: Yes ED Registration Date: 03/26/16 Care time: The patient presented to the Emergency Department on the above date and was hospitalized for further evaluation of their emergent condition. - New Patient This patient is new to me today: Yes Date on this admission: 03/27/16 - Critical Care Critical Care patient: No - Discharge Referral Referred to [facility] Med P.C.: No
[2016-03-27] MEDS ORDERED: ACETAMINOPHEN 500 MG TABLET (FP) PO PRN (21:06)
[2016-03-28] MEDS: PIPERACILLIN/TAZOB 3.375 GM 50 ML IVPB SCH ×3 (02:36→18:34)
[2016-03-28] MEDS: SODIUM CHLORIDE 1,000 ML IV SCH ×2 (02:47→18:33)
[2016-03-28] MEDS: risperiDONE 1 MG TABLET (FP) PO SCH ×3 (05:42→21:25)
[2016-03-28] MEDS: QUEtiapine FUMARATE 100 MG TABLET (FP) PO SCH ×3 (05:42→21:25)
[2016-03-28] MEDS: POLYETHYLENE GLYCOL 3350 119 GM BTL PO SCH ×3 (05:59→21:27)
[2016-03-28] MEDS ORDERED: PT OWN MED DRAWER 7, Y5N ONE (09:59)
[2016-03-28] MEDS: SENNOSIDES 8.6MG TABLET (FP) PO SCH ×2 (10:01→21:25)
[2016-03-28] MEDS: buPROPion HCL 100 MG TABLET PO SCH (10:01)
[2016-03-28] MEDS: ZINC SULFATE 220 MG CAPSULE (FP) PO SCH (10:01)
[2016-03-28] MEDS: MULTIVITAMINS (DAILY MVI) TABLET (FP) PO SCH (10:01)
[2016-03-28] MEDS: PANTOPRAZOLE 20 MG TABLET (FP) PO SCH (10:02)
[2016-03-28] MEDS: ASCORBIC ACID 500 MG TABLET (FP) PO SCH (10:02)
[2016-03-28] MEDS: ENOXAPARIN NA (PORCINE) 40 MG/0.4 ML DISP.SYRIN SQ SCH (10:02)
--- NOTE | 2016-03-28 13:26 | PN ---
Progress Note, Physician History of Present Illness: Awake, alert + cough noted Breathing non-labored Temps down- afebrile Rapid flu ag negative - Current Medication List Current Medications: Active Medications Acetaminophen (Tylenol -) 500 mg PO Q6H PRN PRN Reason: FEVER OR PAIN Last Admin: 03/27/16 22:04 Dose: 500 mg Albuterol/Ipratropium (Duoneb -) 1 amp NEB Q6H PRN PRN Reason: SHORTNESS OF BREATH Ascorbic Acid (Vitamin C -) 1,000 mg PO DAILY [facility] Last Admin: 03/28/16 10:02 Dose: 1,000 mg Bupropion HCl (Wellbutrin -) 200 mg PO DAILY [facility] Last Admin: 03/28/16 10:01 Dose: 200 mg Enoxaparin Sodium (Lovenox -) 40 mg SQ DAILY [facility] Last Admin: 03/28/16 10:02 Dose: 40 mg Piperacillin Sod/Tazobactam Sod (Zosyn 3.375gm Ivpb (Pre-Docked)) 50 mls @ 100 mls/hr IVPB Q8H-IV [facility] Last Admin: 03/28/16 10:01 Dose: 100 mls/hr Sodium Chloride (Normal Saline -) 1,000 mls @ 100 mls/hr IV ASDIR [facility] Stop: 03/29/16 02:14 Last Admin: 03/28/16 02:47 Dose: 100 mls/hr Multivitamins/Minerals/Vitamin C (Tab-A-Vit -) 1 tab PO DAILY [facility] Last Admin: 03/28/16 10:01 Dose: 1 tab Non-Formulary Medication (Melatonin [Melatonin]) 6 mg PO [facility] Pantoprazole Sodium (Protonix -) 20 mg PO DAILY [facility] Last Admin: 03/28/16 10:02 Dose: 20 mg Polyethylene Glycol (Miralax (For Daily Use) -) 17 gm PO TID [facility] Last Admin: 03/28/16 05:59 Dose: Not Given Quetiapine Fumarate (Seroquel -) 300 mg PO TID [facility] Last Admin: 03/28/16 05:42 Dose: 300 mg Risperidone (Risperdal -) 2 mg PO TID [facility] Last Admin: 03/28/16 05:42 Dose: 2 mg Senna (Senna -) 2 tab PO BID [facility] Last Admin: 03/28/16 10:01 Dose: 2 tab Sodium Chloride (Normal Saline -) 860 ml IV Q20M PRN PRN Reason: MAP<65mm Hg OR SBP <90 Zinc Sulfate (Orazinc -) 220 mg PO DAILY [facility] Last Admin: 03/28/16 10:01 Dose: 220 mg - Objective Vital Signs: Vital Signs Temperature 98.4 F 03/28/16 10:00 Pulse Rate 97 H 03/28/16 10:00 Respiratory Rate 22 03/28/16 10:00 Blood Pressure 110/82 03/28/16 10:00 O2 Sat by Pulse Oximetry (%) 94 L 03/28/16 09:00 Constitutional: Yes: No Distress Eyes: Yes: Conjunctiva Clear Cardiovascular: Yes: Regular Rate and Rhythm, S1, S2 Respiratory: Yes: Rhonchi Gastrointestinal: Yes: Normal Bowel Sounds, Soft, Other (distended, tympanitic) . No: Tenderness Edema: Yes Labs: CBC, BMP 03/27/16 06:20 03/27/16 06:20 INR, PTT INR 1.25 (0.82-1.09) H 03/26/16 16:38 Assessment/Plan HCAP Possible sepsis secondary to pneumonia CP Await c/s Continue empiric zosyn
--- NOTE | 2016-03-28 19:03 | PN ---
Physical Exam: SUBJECTIVE: Patient seen and examined OBJECTIVE: Vital Signs Period Temp Pulse Resp BP Sys/Davis Pulse Ox Last 24 Hr 98.4 F-101.8 F 97-120 20-22 110-136/59-89 94-96 GENERAL: The patient is awake, alert, and fully oriented, in no acute distress. HEAD: Normal with no signs of trauma. EYES: PERRL, extraocular movements intact, sclera anicteric, conjunctiva clear. No ptosis. ENT: Ears normal, nares patent, oropharynx clear without exudates, dry mucous membranes. NECK: Trachea midline, full range of motion, supple. LUNGS: Breath sounds equal, diminished breath sounds B/L, no wheezes, no crackles, no accessory muscle use. HEART: Regular rate and rhythm, S1, S2 without murmur, rub or gallop. ABDOMEN: Soft, nontender, distended, normoactive bowel sounds, no rebound, no hepatosplenomegaly, no masses. EXTREMITIES: 2+ pulses, warm, well-perfused, no edema. NEUROLOGICAL: Cranial nerves II through XII grossly intact. Slurred speech, not walking. PSYCH: Normal mood, normal affect. SKIN: Warm, dry, normal turgor, no rashes or lesions noted. CBCD WBC 7.0 K/mm3 (4.0-10.0) 03/27/16 06:20 RBC 4.36 M/mm3 (4.00-5.60) 03/27/16 06:20 Hgb 12.8 GM/dL (11.7-16.9) 03/27/16 06:20 Hct 37.9 % (35.4-49) 03/27/16 06:20 MCV 86.9 fl (80-96) 03/27/16 06:20 MCHC 33.7 g/dl (32.0-35.9) 03/27/16 06:20 RDW 13.6 % (11.9-15.9) 03/27/16 06:20 Plt Count 219 K/MM3 (134-434) 03/27/16 06:20 MPV 7.8 fl (7.5-11.1) 03/27/16 06:20 CMP Sodium 139 mmol/L (136-145) 03/27/16 06:20 Potassium 3.9 mmol/L (3.5-5.1) 03/27/16 06:20 Chloride 105 mmol/L (98-107) 03/27/16 06:20 Carbon Dioxide 24 mmol/L (21-32) 03/27/16 06:20 Anion Gap 10 (8-16) 03/27/16 06:20 BUN 8 mg/dL (7-18) 03/27/16 06:20 Creatinine 0.5 mg/dL (0.7-1.3) L D 03/27/16 06:20 Creat Clearance w eGFR > 60 (>60) 03/27/16 06:20 Random Glucose 80 mg/dL (74-106) 03/27/16 06:20 Calcium 8.2 mg/dL (8.5-10.1) L 03/27/16 06:20 Total Bilirubin 0.6 mg/dL (0.2-1.0) 03/27/16 06:20 AST 13 U/L (15-37) L 03/27/16 06:20 ALT 20 U/L (12-78) 03/27/16 06:20 Alkaline Phosphatase 98 U/L (45-117) 03/27/16 06:20 Total Protein 6.6 g/dl (6.4-8.2) 03/27/16 06:20 Albumin 3.5 g/dl (3.4-5.0) 03/27/16 06:20 CARDIAC ENZYMES Creatine Kinase 53 IU/L (39-308) 03/26/16 16:38 Troponin I < 0.02 ng/ml (0.00-0.05) 03/26/16 16:38 Medication Instructions Recorded Melatonin 6 mg PO HS PRN 03/22/14 Quetiapine Fumarate [Seroquel] 300 mg PO TID 03/22/14 Ascorbic Acid [C-1000] 1,000 mg PO DAILY 08/08/14 Sennosides [Senna -] 2 tab PO BID 08/08/14 Zinc Sulfate 220 mg PO DAILY 08/08/14 Loratadine [Claritin -] 10 mg PO DAILY 06/14/15 Bupropion HCl [Wellbutrin -] 200 mg PO HS tablet 06/21/15 Multivitamins [Multivit ([facility] 1 tab PO DAILY tab 06/21/15 Formulary)] Polyethylene Glycol 3350 [Miralax 17 gm PO TID #1 bottle 06/21/15 (For Daily Use) -] Risperidone [Risperdal -] 2 mg PO TID tablet 06/21/15 Fluticasone Propionate [Flovent 44 mcg IH BID 03/27/16 Diskus] Loperamide HCl [Loperamide] 2 mg PO Q4H PRN 03/27/16 Melatonin 3 mg PO HS 03/27/16 Simethicone 40 mg PO BID 03/27/16 Active Medications Generic Name Dose Route Start Last Admin Trade Name Freq PRN Reason Stop Dose Admin Acetaminophen 500 mg 03/27/16 21:06 03/27/16 22:04 Tylenol - PO 500 mg Q6H PRN Administration FEVER OR PAIN Albuterol/Ipratropium 1 amp 03/26/16 20:28 Duoneb - NEB Q6H PRN SHORTNESS OF BREATH Ascorbic Acid 1,000 mg 03/26/16 20:30 03/28/16 10:02 Vitamin C - PO 1,000 mg DAILY [facility] Administration Bupropion HCl 200 mg 03/27/16 10:00 03/28/16 10:01 Wellbutrin - PO 200 mg DAILY [facility] Administration Enoxaparin Sodium 40 mg 03/27/16 04:26 03/28/16 10:02 Lovenox - SQ 40 mg DAILY [facility] Administration Piperacillin Sod/Tazobactam Sod 50 mls @ 100 mls/hr 03/27/16 15:00 03/28/16 18: 34 Zosyn 3.375gm Ivpb (Pre-Docked) IVPB 100 mls/hr Q8H-IV [facility] Administration Sodium Chloride 1,000 mls @ 100 mls/hr 03/27/16 16:15 03/28/16 18:33 Normal Saline - IV 03/29/16 02:14 Not Given ASDIR [facility] Multivitamins/Minerals/Vitamin C 1 tab 03/26/16 20:30 03/28/16 10:01 Tab-A-Vit - PO 1 tab DAILY [facility] Administration Non-Formulary Medication 6 mg 03/26/16 22:00 Melatonin [Melatonin] PO HS [facility] Pantoprazole Sodium 20 mg 03/26/16 20:30 03/28/16 10:02 Protonix - PO 20 mg DAILY [facility] Administration Polyethylene Glycol 17 gm 03/26/16 22:00 03/28/16 15:10 Miralax (For Daily Use) - PO Not Given TID [facility] Quetiapine Fumarate 300 mg 03/26/16 22:30 03/28/16 15:11 Seroquel - PO 300 mg TID [facility] Administration Risperidone 2 mg 03/26/16 22:00 03/28/16 15:11 Risperdal - PO 2 mg TID [facility] Administration Senna 2 tab 03/26/16 22:00 03/28/16 10:01 Senna - PO 2 tab BID [facility] Administration Sodium Chloride 860 ml 03/26/16 15:28 Normal Saline - IV Q20M PRN MAP<65mm Hg OR SBP <90 Zinc Sulfate 220 mg 03/26/16 20:30 03/28/16 10:01 Orazinc - PO 220 mg DAILY [facility] Administration Flu result: negative ASSESSMENT/PLAN: 20 year old male, with PMH of cerebral palsy, gastroesophageal reflux disease, depression with psychotic features and seizure disorders ,[facility] to [facility] ED via EMS for the evaluation of fever. #Health CAP on IV antibiotic Zosyn will continue seen by #ABDOMINAL DISTENTION Patient GETS FECAL impaction with Possible SBO as per his mother who is bedside. Ordered Abdominal x-ray to r/o perforation # Hx of GERD ON PO protonix continue Prophylaxis GI: On Protonix DVT px: On SCD's Visit type - Emergency Visit Emergency Visit: Yes ED Registration Date: 03/26/16 Care time: The patient presented to the Emergency Department on the above date and was hospitalized for further evaluation of their emergent condition. - New Patient This patient is new to me today: No - Critical Care Critical Care patient: No
[2016-03-29] MEDS: PIPERACILLIN/TAZOB 3.375 GM 50 ML IVPB SCH ×3 (02:34→17:39)
[2016-03-29] MEDS ORDERED: PT OWN MED DRAWER 7, Y5N ONE ×3 (05:28→09:44)
[2016-03-29] MEDS: QUEtiapine FUMARATE 100 MG TABLET (FP) PO SCH ×3 (06:03→21:42)
[2016-03-29] MEDS: risperiDONE 1 MG TABLET (FP) PO SCH ×3 (06:03→21:42)
[2016-03-29] MEDS: POLYETHYLENE GLYCOL 3350 119 GM BTL PO SCH ×3 (06:24→22:29)
[2016-03-29] MEDS: ENOXAPARIN NA (PORCINE) 40 MG/0.4 ML DISP.SYRIN SQ SCH (09:34)
[2016-03-29] MEDS: ZINC SULFATE 220 MG CAPSULE (FP) PO SCH (09:34)
[2016-03-29] MEDS: ASCORBIC ACID 500 MG TABLET (FP) PO SCH (09:35)
[2016-03-29] MEDS: MULTIVITAMINS (DAILY MVI) TABLET (FP) PO SCH (09:35)
[2016-03-29] MEDS: buPROPion HCL 100 MG TABLET PO SCH (09:35)
[2016-03-29] MEDS: SENNOSIDES 8.6MG TABLET (FP) PO SCH ×2 (09:35→21:42)
[2016-03-29] MEDS: PANTOPRAZOLE 20 MG TABLET (FP) PO SCH (09:35)
--- NOTE | 2016-03-29 10:38 | PN ---
Progress Note, Physician History of Present Illness: More awake and alert Still with cough Temps down-afebrile Cultures no growth - Current Medication List Current Medications: Active Medications Acetaminophen (Tylenol -) 500 mg PO Q6H PRN PRN Reason: FEVER OR PAIN Last Admin: 03/27/16 22:04 Dose: 500 mg Albuterol/Ipratropium (Duoneb -) 1 amp NEB Q6H PRN PRN Reason: SHORTNESS OF BREATH Ascorbic Acid (Vitamin C -) 1,000 mg PO DAILY [facility] Last Admin: 03/29/16 09:35 Dose: 1,000 mg Bupropion HCl (Wellbutrin -) 200 mg PO DAILY [facility] Last Admin: 03/29/16 09:35 Dose: 200 mg Enoxaparin Sodium (Lovenox -) 40 mg SQ DAILY [facility] Last Admin: 03/29/16 09:34 Dose: 40 mg Piperacillin Sod/Tazobactam Sod (Zosyn 3.375gm Ivpb (Pre-Docked)) 50 mls @ 100 mls/hr IVPB Q8H-IV [facility] Last Admin: 03/29/16 09:35 Dose: 100 mls/hr Multivitamins/Minerals/Vitamin C (Tab-A-Vit -) 1 tab PO DAILY [facility] Last Admin: 03/29/16 09:35 Dose: 1 tab Non-Formulary Medication (Melatonin [Melatonin]) 6 mg PO HS [facility] Pantoprazole Sodium (Protonix -) 20 mg PO DAILY [facility] Last Admin: 03/29/16 09:35 Dose: 20 mg Polyethylene Glycol (Miralax (For Daily Use) -) 17 gm PO TID [facility] Last Admin: 03/29/16 06:24 Dose: 17 grams Quetiapine Fumarate (Seroquel -) 300 mg PO TID [facility] Last Admin: 03/29/16 06:03 Dose: 300 mg Risperidone (Risperdal -) 2 mg PO TID [facility] Last Admin: 03/29/16 06:03 Dose: 2 mg Senna (Senna -) 2 tab PO BID [facility] Last Admin: 03/29/16 09:35 Dose: 2 tab Sodium Chloride (Normal Saline -) 860 ml IV Q20M PRN PRN Reason: MAP<65mm Hg OR SBP <90 Zinc Sulfate (Orazinc -) 220 mg PO DAILY [facility] Last Admin: 03/29/16 09:34 Dose: 220 mg - Objective Vital Signs: Vital Signs Temperature 98.4 F 03/29/16 09:41 Pulse Rate 99 H 03/29/16 09:41 Respiratory Rate 20 03/29/16 09:41 Blood Pressure 117/61 03/29/16 09:41 O2 Sat by Pulse Oximetry (%) 97 03/29/16 10:18 Constitutional: Yes: No Distress Eyes: Yes: Conjunctiva Clear Cardiovascular: Yes: Regular Rate and Rhythm Respiratory: Yes: Diminished Gastrointestinal: Yes: Normal Bowel Sounds, Soft. No: Tenderness Labs: CBC, BMP 03/27/16 06:20 03/27/16 06:20 INR, PTT INR 1.25 (0.82-1.09) H 03/26/16 16:38 Assessment/Plan HCAP Possible sepsis secondary to pneumonia CP Improved Continue empiric zosyn
--- NOTE | 2016-03-29 12:54 | PN ---
Physical Exam: SUBJECTIVE: Patient seen and examined Has no new complains, eating with out any difficulty. OBJECTIVE: Vital Signs Temperature 98.4 F 03/29/16 09:41 Pulse Rate 99 H 03/29/16 09:41 Respiratory Rate 20 03/29/16 09:41 Blood Pressure 117/61 03/29/16 09:41 O2 Sat by Pulse Oximetry (%) 97 03/29/16 10:18 GENERAL: The patient is awake, alert, and fully oriented, in no acute distress. HEAD: Normal with no signs of trauma. EYES: PERRL, extraocular movements intact, sclera anicteric, conjunctiva clear. . ENT: Ears normal, oropharynx clear without exudates, dry mucous membranes. NECK: Trachea midline, full range of motion, supple. LUNGS: Breath sounds equal, diminished breath sounds B/L, no wheezes, no crackles, no accessory muscle use. HEART: Regular rate and rhythm, S1, S2 without murmur, rub or gallop. ABDOMEN: Soft, nontender, distended, normoactive bowel sounds, no rebound, no hepatosplenomegaly, no masses. EXTREMITIES: 2+ pulses, warm, well-perfused, no edema. NEUROLOGICAL: Cranial nerves II through XII grossly intact. Slurred speech, not walking. PSYCH: Normal mood, normal affect. SKIN: Warm, dry, normal turgor, no rashes or lesions noted. CBCD WBC 7.0 K/mm3 (4.0-10.0) 03/27/16 06:20 RBC 4.36 M/mm3 (4.00-5.60) 03/27/16 06:20 Hgb 12.8 GM/dL (11.7-16.9) 03/27/16 06:20 Hct 37.9 % (35.4-49) 03/27/16 06:20 MCV 86.9 fl (80-96) 03/27/16 06:20 MCHC 33.7 g/dl (32.0-35.9) 03/27/16 06:20 RDW 13.6 % (11.9-15.9) 03/27/16 06:20 Plt Count 219 K/MM3 (134-434) 03/27/16 06:20 MPV 7.8 fl (7.5-11.1) 03/27/16 06:20 CMP Sodium 139 mmol/L (136-145) 03/27/16 06:20 Potassium 3.9 mmol/L (3.5-5.1) 03/27/16 06:20 Chloride 105 mmol/L (98-107) 03/27/16 06:20 Carbon Dioxide 24 mmol/L (21-32) 03/27/16 06:20 Anion Gap 10 (8-16) 03/27/16 06:20 BUN 8 mg/dL (7-18) 03/27/16 06:20 Creatinine 0.5 mg/dL (0.7-1.3) L D 03/27/16 06:20 Creat Clearance w eGFR > 60 (>60) 03/27/16 06:20 Random Glucose 80 mg/dL (74-106) 03/27/16 06:20 Calcium 8.2 mg/dL (8.5-10.1) L 03/27/16 06:20 Total Bilirubin 0.6 mg/dL (0.2-1.0) 03/27/16 06:20 AST 13 U/L (15-37) L 03/27/16 06:20 ALT 20 U/L (12-78) 03/27/16 06:20 Alkaline Phosphatase 98 U/L (45-117) 03/27/16 06:20 Total Protein 6.6 g/dl (6.4-8.2) 03/27/16 06:20 Albumin 3.5 g/dl (3.4-5.0) 03/27/16 06:20 CARDIAC ENZYMES Creatine Kinase 53 IU/L (39-308) 03/26/16 16:38 Troponin I < 0.02 ng/ml (0.00-0.05) 03/26/16 16:38 Medication Instructions Recorded Melatonin 6 mg PO HS PRN 03/22/14 Quetiapine Fumarate [Seroquel] 300 mg PO TID 03/22/14 Ascorbic Acid [C-1000] 1,000 mg PO DAILY 08/08/14 Sennosides [Senna -] 2 tab PO BID 08/08/14 Zinc Sulfate 220 mg PO DAILY 08/08/14 Loratadine [Claritin -] 10 mg PO DAILY 06/14/15 Bupropion HCl [Wellbutrin -] 200 mg PO HS tablet 06/21/15 Multivitamins [Multivit ([facility] 1 tab PO DAILY tab 06/21/15 Formulary)] Polyethylene Glycol 3350 [Miralax 17 gm PO TID #1 bottle 06/21/15 (For Daily Use) -] Risperidone [Risperdal -] 2 mg PO TID tablet 06/21/15 Fluticasone Propionate [Flovent 44 mcg IH BID 03/27/16 Diskus] Loperamide HCl [Loperamide] 2 mg PO Q4H PRN 03/27/16 Melatonin 3 mg PO HS 03/27/16 Simethicone 40 mg PO BID 03/27/16 Active Medications Generic Name Dose Route Start Last Admin Trade Name Freq PRN Reason Stop Dose Admin Acetaminophen 500 mg 03/27/16 21:06 03/27/16 22:04 Tylenol - PO 500 mg Q6H PRN Administration FEVER OR PAIN Albuterol/Ipratropium 1 amp 03/26/16 20:28 Duoneb - NEB Q6H PRN SHORTNESS OF BREATH Ascorbic Acid 1,000 mg 03/26/16 20:30 03/29/16 09:35 Vitamin C - PO 1,000 mg DAILY SINA Administration Bupropion HCl 200 mg 03/27/16 10:00 03/29/16 09:35 Wellbutrin - PO 200 mg DAILY SINA Administration Enoxaparin Sodium 40 mg 03/27/16 04:26 03/29/16 09:34 Lovenox - SQ 40 mg DAILY SINA Administration Piperacillin Sod/Tazobactam Sod 50 mls @ 100 mls/hr 03/27/16 15:00 03/29/16 09: 35 Zosyn 3.375gm Ivpb (Pre-Docked) IVPB 100 mls/hr Q8H-IV SINA Administration Multivitamins/Minerals/Vitamin C 1 tab 03/26/16 20:30 03/29/16 09:35 Tab-A-Vit - PO 1 tab DAILY SINA Administration Non-Formulary Medication 6 mg 03/26/16 22:00 Melatonin [Melatonin] PO [facility] Pantoprazole Sodium 20 mg 03/26/16 20:30 03/29/16 09:35 Protonix - PO 20 mg DAILY SINA Administration Polyethylene Glycol 17 gm 03/26/16 22:00 03/29/16 06:24 Miralax (For Daily Use) - PO 17 grams TID SINA Administration Quetiapine Fumarate 300 mg 03/26/16 22:30 03/29/16 06:03 Seroquel - PO 300 mg TID SINA Administration Risperidone 2 mg 03/26/16 22:00 03/29/16 06:03 Risperdal - PO 2 mg TID SINA Administration Senna 2 tab 03/26/16 22:00 03/29/16 09:35 Senna - PO 2 tab BID SINA Administration Sodium Chloride 860 ml 03/26/16 15:28 Normal Saline - IV Q20M PRN MAP<65mm Hg OR SBP <90 Zinc Sulfate 220 mg 03/26/16 20:30 03/29/16 09:34 Orazinc - PO 220 mg DAILY SINA Administration Flu result: negative ASSESSMENT/PLAN: 20 year old male, with PMH of cerebral palsy, gastroesophageal reflux disease, depression with psychotic features and seizure disorders ,was sent from group home to the ED via EMS for the evaluation of fever. #Health CAP on IV antibiotic Zosyn day # 2 as per ID to continue seen by #ABDOMINAL DISTENTION Patient GETS FECAL impaction with Possible SBO as per his mother. Xray report reviewed no obstruction, no perfortion. # Urinary retention on admission On straight Cath. 300cc urine, discussed with the nurse will check the patient again for possible urinary retention. # Hx of GERD ON PO protonix continue Prophylaxis GI: On Protonix DVT px: On SCD's Visit type - Emergency Visit Emergency Visit: Yes ED Registration Date: 03/26/16 Care time: The patient presented to the Emergency Department on the above date and was hospitalized for further evaluation of their emergent condition. - New Patient This patient is new to me today: No - Critical Care Critical Care patient: No
[2016-03-30] MEDS: PIPERACILLIN/TAZOB 3.375 GM 50 ML IVPB SCH ×3 (02:12→17:13)
[2016-03-30] MEDS: risperiDONE 1 MG TABLET (FP) PO SCH ×3 (06:24→22:14)
[2016-03-30] MEDS: QUEtiapine FUMARATE 100 MG TABLET (FP) PO SCH ×3 (06:24→22:14)
[2016-03-30] MEDS: POLYETHYLENE GLYCOL 3350 119 GM BTL PO SCH ×3 (08:06→22:14)
[2016-03-30] MEDS ORDERED: PT OWN MED DRAWER 7, Y5N ONE (09:02)
[2016-03-30] MEDS: MULTIVITAMINS (DAILY MVI) TABLET (FP) PO SCH (09:11)
[2016-03-30] MEDS: ASCORBIC ACID 500 MG TABLET (FP) PO SCH (09:11)
[2016-03-30] MEDS: ENOXAPARIN NA (PORCINE) 40 MG/0.4 ML DISP.SYRIN SQ SCH (09:11)
[2016-03-30] MEDS: SENNOSIDES 8.6MG TABLET (FP) PO SCH ×2 (09:11→22:14)
[2016-03-30] MEDS: PANTOPRAZOLE 20 MG TABLET (FP) PO SCH (09:11)
[2016-03-30] MEDS: ZINC SULFATE 220 MG CAPSULE (FP) PO SCH (09:11)
[2016-03-30] MEDS: buPROPion HCL 100 MG TABLET PO SCH (09:12)
--- NOTE | 2016-03-30 14:44 | PN ---
Physical Exam: SUBJECTIVE: Patient seen and examined. He is complaining of dry cough. Denies fever, chills, N/V, constipation, diarrhea, constipation. OBJECTIVE: Vital Signs Period Temp Pulse Resp BP Sys/Davis Pulse Ox Last 24 Hr 98.4 F-100.0 F 90-109 20- 103-140/51-70 95-97 GENERAL: The patient is awake, alert, and fully oriented, in no acute distress. HEAD: Normal with no signs of trauma. EYES: PERRL, extraocular movements intact, sclera anicteric, conjunctiva clear. No ptosis. ENT: Ears normal, nares patent, oropharynx: mild erythema, no exudates, moist mucous membranes. NECK: Trachea midline, full range of motion, supple. LUNGS: Breath sounds equal, clear to auscultation bilaterally, no wheezes, no crackles, no accessory muscle use. HEART: Regular rate and rhythm, S1, S2 without murmur, rub or gallop. ABDOMEN: Soft, nontender, distended, normoactive bowel sounds, no guarding, no rebound, no hepatosplenomegaly, no masses. EXTREMITIES: 2+ pulses, warm, well-perfused, no edema. NEUROLOGICAL: Cranial nerves II through XII grossly intact. Normal speech, gait not observed. PSYCH: Normal mood, normal affect. SKIN: Warm, dry, normal turgor, no rashes or lesions noted Active Medications Generic Name Dose Route Start Last Admin Trade Name Freq PRN Reason Stop Dose Admin Acetaminophen 500 mg 03/27/16 21:06 03/27/16 22:04 Tylenol - PO 500 mg Q6H PRN Administration FEVER OR PAIN Albuterol/Ipratropium 1 amp 03/26/16 20:28 Duoneb - NEB Q6H PRN SHORTNESS OF BREATH Ascorbic Acid 1,000 mg 03/26/16 20:30 03/30/16 09:11 Vitamin C - PO 1,000 mg DAILY SINA Administration Bupropion HCl 200 mg 03/27/16 10:00 03/30/16 09:12 Wellbutrin - PO 200 mg DAILY SINA Administration Enoxaparin Sodium 40 mg 03/27/16 04:26 03/30/16 09:11 Lovenox - SQ 40 mg DAILY SINA Administration Piperacillin Sod/Tazobactam Sod 50 mls @ 100 mls/hr 03/27/16 15:00 03/30/16 09: 12 Zosyn 3.375gm Ivpb (Pre-Docked) IVPB 100 mls/hr Q8H-IV S[facility] Administration Multivitamins/Minerals/Vitamin C 1 tab 03/26/16 20:30 03/30/16 09:11 Tab-A-Vit - PO 1 tab DAILY SINA Administration Non-Formulary Medication 6 mg 03/26/16 22:00 Melatonin [Melatonin] PO HS [facility] Pantoprazole Sodium 20 mg 03/26/16 20:30 03/30/16 09:11 Protonix - PO 20 mg DAILY SINA Administration Polyethylene Glycol 17 gm 03/26/16 22:00 03/30/16 13:11 Miralax (For Daily Use) - PO 17 grams TID SINA Administration Quetiapine Fumarate 300 mg 03/26/16 22:30 03/30/16 13:11 Seroquel - PO 300 mg TID [facility]INA Administration Risperidone 2 mg 03/26/16 22:00 03/30/16 13:12 Risperdal - PO 2 mg TID SINA Administration Senna 2 tab 03/26/16 22:00 03/30/16 09:11 Senna - PO 2 tab BID SINA Administration Sodium Chloride 860 ml 03/26/16 15:28 Normal Saline - IV Q20M PRN MAP<65mm Hg OR SBP <90 Zinc Sulfate 220 mg 03/26/16 20:30 03/30/16 09:11 Orazinc - PO 220 mg DAILY SINA Administration ASSESSMENT/PLAN: 20 year old male, with PMH of cerebral palsy, gastroesophageal reflux disease, depression with psychotic features and seizure disorders resident of [facility]. He was sent from [facility] to the ED via EMS for the evaluation of fever. Most likely Health Care Associated Pneumonia -ID consulted, the pt is taking Zosyn day 4 -Y max 100F -speech and swallow consultation ordered -Nasopharyngeal swab for Influenza sent: negative -sputum culture Abdominal pain -Patient previously admitted with fecal impaction ? bowel ischemia -Ordered Abdominal x-ray to r/o perforation or any acute pathology: normal GERD -Added Protonix PO -No acute symptoms FEN -Not on IV fluids -No changes -changed to honey liquid diet Prophylaxis For GI: On Protonix 20 mg PO For DVT: On SCD's Disposition; Med surg Problem List - Problems (1) Cerebral palsy Code(s): G80.9 - CEREBRAL PALSY, UNSPECIFIED Qualifiers: Cerebral palsy type: unspecified type Qualified Code(s): G80.9 - Cerebral palsy, unspecified (2) Pneumonia Code(s): J18.9 - PNEUMONIA, UNSPECIFIED ORGANISM Qualifiers: Pneumonia type: due to unspecified organism Laterality: left Lung location: upper lobe of lung Qualified Code(s): J18.9 - Pneumonia, unspecified organism Visit type - Emergency Visit Emergency Visit: Yes ED Registration Date: 03/26/16 Care time: The patient presented to the Emergency Department on the above date and was hospitalized for further evaluation of their emergent condition. - New Patient This patient is new to me today: Yes Date on this admission: 05/07/16 - Critical Care Critical Care patient: No - Discharge Referral Referred to [facility] Med P.C.: No
--- NOTE | 2016-03-30 19:15 | PN ---
Teaching Attending Note Name of Resident: Gale Pichardo ATTENDING PHYSICIAN STATEMENT I saw and evaluated the patient. I reviewed the resident's note and discussed the case with the resident. I agree with the resident's findings and plan as documented. SUBJECTIVE: Paatient is feeling better, with no acute distress. OBJECTIVE: Vital Signs Temperature 98.5 F 03/30/16 17:31 Pulse Rate 95 H 03/30/16 17:31 Respiratory Rate 20 03/30/16 17:31 Blood Pressure 121/56 03/30/16 17:31 O2 Sat by Pulse Oximetry (%) 95 03/30/16 09:00 GENERAL: The patient is awake, alert, and fully oriented, in no acute distress. HEAD: Normal with no signs of trauma. EYES: PERRL, extraocular movements intact, sclera anicteric, conjunctiva clear. . ENT: Ears normal, oropharynx clear without exudates, dry mucous membranes. NECK: Trachea midline, full range of motion, supple. LUNGS: Breath sounds equal, diminished breath sounds B/L, no wheezes, no crackles, no accessory muscle use. HEART: Regular rate and rhythm, S1, S2 without murmur, rub or gallop. ABDOMEN: Soft, nontender, distended, normoactive bowel sounds, no rebound, no hepatosplenomegaly, no masses. EXTREMITIES: 2+ pulses, warm, well-perfused, no edema. NEUROLOGICAL: Cranial nerves II through XII grossly intact. Slurred speech, not walking. PSYCH: Normal mood, normal affect. SKIN: Warm, dry, normal turgor, no rashes or lesions noted. CBCD WBC 7.0 K/mm3 (4.0-10.0) 03/27/16 06:20 RBC 4.36 M/mm3 (4.00-5.60) 03/27/16 06:20 Hgb 12.8 GM/dL (11.7-16.9) 03/27/16 06:20 Hct 37.9 % (35.4-49) 03/27/16 06:20 MCV 86.9 fl (80-96) 03/27/16 06:20 MCHC 33.7 g/dl (32.0-35.9) 03/27/16 06:20 RDW 13.6 % (11.9-15.9) 03/27/16 06:20 Plt Count 219 K/MM3 (134-434) 03/27/16 06:20 MPV 7.8 fl (7.5-11.1) 03/27/16 06:20 CMP Sodium 139 mmol/L (136-145) 03/27/16 06:20 Potassium 3.9 mmol/L (3.5-5.1) 03/27/16 06:20 Chloride 105 mmol/L (98-107) 03/27/16 06:20 Carbon Dioxide 24 mmol/L (21-32) 03/27/16 06:20 Anion Gap 10 (8-16) 03/27/16 06:20 BUN 8 mg/dL (7-18) 03/27/16 06:20 Creatinine 0.5 mg/dL (0.7-1.3) L D 03/27/16 06:20 Creat Clearance w eGFR > 60 (>60) 03/27/16 06:20 Random Glucose 80 mg/dL (74-106) 03/27/16 06:20 Calcium 8.2 mg/dL (8.5-10.1) L 03/27/16 06:20 Total Bilirubin 0.6 mg/dL (0.2-1.0) 03/27/16 06:20 AST 13 U/L (15-37) L 03/27/16 06:20 ALT 20 U/L (12-78) 03/27/16 06:20 Alkaline Phosphatase 98 U/L (45-117) 03/27/16 06:20 Total Protein 6.6 g/dl (6.4-8.2) 03/27/16 06:20 Albumin 3.5 g/dl (3.4-5.0) 03/27/16 06:20 CARDIAC ENZYMES Creatine Kinase 53 IU/L (39-308) 03/26/16 16:38 Troponin I < 0.02 ng/ml (0.00-0.05) 03/26/16 16:38 Current Medications Generic Name Dose Route Start Last Admin Trade Name Freq PRN Reason Stop Dose Admin Acetaminophen 500 mg 03/27/16 21:06 03/27/16 22:04 Tylenol - PO 500 mg Q6H PRN Administration FEVER OR PAIN Albuterol/Ipratropium 1 amp 03/26/16 20:28 Duoneb - NEB Q6H PRN SHORTNESS OF BREATH Ascorbic Acid 1,000 mg 03/26/16 20:30 03/30/16 09:11 Vitamin C - PO 1,000 mg DAILY SINA Administration Bupropion HCl 200 mg 03/27/16 10:00 03/30/16 09:12 Wellbutrin - PO 200 mg DAILY SINA Administration Enoxaparin Sodium 40 mg 03/27/16 04:26 03/30/16 09:11 Lovenox - SQ 40 mg DAILY SINA Administration Piperacillin Sod/Tazobactam Sod 50 mls @ 100 mls/hr 03/27/16 15:00 03/30/16 17: 13 Zosyn 3.375gm Ivpb (Pre-Docked) IVPB 100 mls/hr Q8H-IV SINA Administration Multivitamins/Minerals/Vitamin C 1 tab 03/26/16 20:30 03/30/16 09:11 Tab-A-Vit - PO 1 tab DAILY SINA Administration Non-Formulary Medication 6 mg 03/26/16 22:00 Melatonin [Melatonin] PO HS [facility] Pantoprazole Sodium 20 mg 03/26/16 20:30 03/30/16 09:11 Protonix - PO 20 mg DAILY SINA Administration Polyethylene Glycol 17 gm 03/26/16 22:00 03/30/16 13:11 Miralax (For Daily Use) - PO 17 grams TID SINA Administration Quetiapine Fumarate 300 mg 03/26/16 22:30 03/30/16 13:11 Seroquel - PO 300 mg TID SINA Administration Risperidone 2 mg 03/26/16 22:00 03/30/16 13:12 Risperdal - PO 2 mg TID SINA Administration Senna 2 tab 03/26/16 22:00 03/30/16 09:11 Senna - PO 2 tab BID SINA Administration Sodium Chloride 860 ml 03/26/16 15:28 Normal Saline - IV Q20M PRN MAP<65mm Hg OR SBP <90 Zinc Sulfate 220 mg 03/26/16 20:30 03/30/16 09:11 Orazinc - PO 220 mg DAILY SINA Administration Medication Instructions Recorded Melatonin 6 mg PO HS PRN 03/22/14 Quetiapine Fumarate [Seroquel] 300 mg PO TID 03/22/14 Ascorbic Acid [C-1000] 1,000 mg PO DAILY 08/08/14 Sennosides [Senna -] 2 tab PO BID 08/08/14 Zinc Sulfate 220 mg PO DAILY 08/08/14 Loratadine [Claritin -] 10 mg PO DAILY 06/14/15 Bupropion HCl [Wellbutrin -] 200 mg PO HS tablet 06/21/15 Multivitamins [Multivit ([facility] 1 tab PO DAILY tab 06/21/15 Formulary)] Polyethylene Glycol 3350 [Miralax 17 gm PO TID #1 bottle 06/21/15 (For Daily Use) -] Risperidone [Risperdal -] 2 mg PO TID tablet 06/21/15 Fluticasone Propionate [Flovent 44 mcg IH BID 03/27/16 Diskus] Loperamide HCl [Loperamide] 2 mg PO Q4H PRN 03/27/16 Melatonin 3 mg PO HS 03/27/16 Simethicone 40 mg PO BID 03/27/16 Flu result: negative ASSESSMENT AND PLAN: 20 year old male, with PMH of cerebral palsy, GERD, depression with psychotic features and seizure disorders ,was sent from shelter to the ED via EMS for the evaluation of fever. #Health CAP on IV antibiotic Zosyn will continue seen by Dr.Barry dempsey. #ABDOMINAL DISTENTION with occasional fecal impaction stable at this time, Abdominal x-ray was negative # Hx of GERD continue protonix # Cough when eating will get LorriLiss to evaluate the patient. Prophylaxis GI: On Protonix DVT px: On SCD's
[2016-03-31] MEDS: PIPERACILLIN/TAZOB 3.375 GM 50 ML IVPB SCH ×3 (02:03→17:50)
[2016-03-31] MEDS: QUEtiapine FUMARATE 100 MG TABLET (FP) PO SCH ×3 (05:38→21:52)
[2016-03-31] MEDS: risperiDONE 1 MG TABLET (FP) PO SCH ×3 (05:38→21:52)
[2016-03-31] MEDS: POLYETHYLENE GLYCOL 3350 119 GM BTL PO SCH ×3 (05:38→21:56)
--- NOTE | 2016-03-31 10:21 | CONSULT ---
Admitting History and Physical - Primary Care Physician PCP: Daksha Shah - Admission History of Present Illness: Per EMR:"Initial Comments: 03/26/16 15:34 The patient is a 20-year-old man, from [facility], with a past medical history cerebral palsy, gastroesophageal reflux disease and seizure disorders who presents to the emergency department via EMS for further evaluation of a fever. Upon ER arrival, patient is found to have a temperature of 101.0, HR of 120 and RR of 30 and was immediately placed on a non- rebreather. Upon patient interview, he reports abdominal pain, cough, chills and states that he believes he has a chest cold. History of Present Illness is Limited." Per ID: "Assessment/Plan HCAP Possible sepsis secondary to pneumonia CP Improved Continue empiric zosyn" \\ Pt is verbal, o x 3, Dysarthric. Dysphonic. Needs to push to coordinate respiration, with phonation and articulation to achieve audible voicing. Pt tells me he has an MBS at [place] 2 weeks ago and "failed" getting chewy bar "stuck in his throat." He reports h/o PNA, and that the cough is "just him." He is reclined after dinner at the intermediate to change his clothing.He is on "thicked liquids and chopped food." Upon questioning, pt is on cut up solid chunks of food, not minced. Pt is graduating this year and uses a computer. He is cognitively functional. Pt reports being intubated at but not since. History Source: Patient Limitations to Obtaining History: Other (Dysarthria) - Past Medical History CONTENT COORDINATOR: Yes: Seizure, Other (MR) Gastrointestinal: Yes: Constipation (with fecal impactions), GERD, Other (Stool impactions) Psych: Yes: Depression Musculoskeletal: Yes: Other (scoliosis) - Smoking History Smoking history: Never smoked Have you smoked in the past 12 months: No - Alcohol/Substance Use Hx Alcohol Use: No - Social History ADL: Family Assistance History - Admission Reason For Visit: SEPSIS; CEREBRAL PALSY; PNEUMONIA - Diagnostics X-ray: Report Reviewed - General Mental Status: Alert and Oriented, Awake and Alert, Able to Follow Commands Attention: Intact Ability to Follow Directions: Excellent Head/Neck Control: Needs Assist - Hearing Hearing: Normal Hearing Aide: No Speech Evaluation - Communication Primary Language: [id number] Communication: Yes: Dysarthria Oral Expression Ability: Yes: Mild Impairment - Speech Production Able to Make Needs Known: Yes: Mildly Impaired Intelligibility: Yes: Mildly Impaired - Speech Characteristics Voice Loudness: Normal Voice Pitch: Yes: Normal Voice Phonatory-based Quality: Yes: Dysphonia Speech Pattern: Impaired Speech Clarity: < 75% Nasal Resonance: Normal Articulation: Yes: Imprecise (articulation errors.) Voice, Other Observations: Yes: Progressively Weak Voice, Inadequate Breath Support - Language/Verbal Expression Able to Respond to Simple Queries: Yes: WNL Able to Communicate Wants and Needs: Yes: WNL - Memory/Perception snf Memory: Yes: WNL Short Term Memory: Yes: WNL - Swallow Evaluation/Bedside Assessment Current Nutritional Intake: Honey Textured Liquids, Other (chopped) Oral Secretions: Yes: WFL Dentition: Yes: Adequate Facial Symmetry at Rest: Symmetrical Facial Symmetry on Retraction: Symmetrical Facial Movement: Controlled Sensation: Normal Jaw Position: Open at Rest Lingual Movement: Symmetric Laryngeal Movement: Able to Palpate Oral Prep Time: Increased A-P Transit: Impaired Timing of Swallow: Delayed Coughing/Throat Clear: Yes (delayed, after drinking honey thick liquid from a straw.) Recommendations - Speech Evaluation, Impression/Plan Impression: Cognitively functional. Dysarthria/dysphagia. - Disposition Discharge to: Home with Assist - Dysphagia Impressions/Plan Swallowing Skills: Impaired Dysphagia Impressions: Ongoing Evaluation *Silent aspiration: cannot be R/O at bedside Recommendations: ALFONSO w Esophagus
[2016-03-31] MEDS ORDERED: PT OWN MED DRAWER 7, Y5N ONE (10:42)
[2016-03-31] MEDS: SENNOSIDES 8.6MG TABLET (FP) PO SCH ×2 (10:45→21:52)
[2016-03-31] MEDS: MULTIVITAMINS (DAILY MVI) TABLET (FP) PO SCH (10:45)
[2016-03-31] MEDS: ZINC SULFATE 220 MG CAPSULE (FP) PO SCH (10:45)
[2016-03-31] MEDS: PANTOPRAZOLE 20 MG TABLET (FP) PO SCH (10:45)
[2016-03-31] MEDS: ASCORBIC ACID 500 MG TABLET (FP) PO SCH (10:45)
[2016-03-31] MEDS: buPROPion HCL 100 MG TABLET PO SCH (10:46)
--- NOTE | 2016-03-31 11:02 | PN ---
Progress Note, Physician History of Present Illness: Awake, alert Offers no complaints No cough noted Afebrile WBC WNL BC (-) Flu (-) - Current Medication List Current Medications: Active Medications Acetaminophen (Tylenol -) 500 mg PO Q6H PRN PRN Reason: FEVER OR PAIN Last Admin: 03/27/16 22:04 Dose: 500 mg Albuterol/Ipratropium (Duoneb -) 1 amp NEB Q6H PRN PRN Reason: SHORTNESS OF BREATH Ascorbic Acid (Vitamin C -) 1,000 mg PO DAILY [facility] Last Admin: 03/31/16 10:45 Dose: 1,000 mg Bupropion HCl (Wellbutrin -) 200 mg PO DAILY [facility] Last Admin: 03/31/16 10:46 Dose: 200 mg Enoxaparin Sodium (Lovenox -) 40 mg SQ DAILY [facility] Last Admin: 03/30/16 09:11 Dose: 40 mg Piperacillin Sod/Tazobactam Sod (Zosyn 3.375gm Ivpb (Pre-Docked)) 50 mls @ 100 mls/hr IVPB Q8H-IV [facility] Last Admin: 03/31/16 10:46 Dose: 100 mls/hr Multivitamins/Minerals/Vitamin C (Tab-A-Vit -) 1 tab PO DAILY [facility] Last Admin: 03/31/16 10:45 Dose: 1 tab Non-Formulary Medication (Melatonin [Melatonin]) 6 mg PO [facility] Pantoprazole Sodium (Protonix -) 20 mg PO DAILY [facility] Last Admin: 03/31/16 10:45 Dose: 20 mg Polyethylene Glycol (Miralax (For Daily Use) -) 17 gm PO TID [facility] Last Admin: 03/31/16 05:38 Dose: 17 grams Quetiapine Fumarate (Seroquel -) 300 mg PO TID [facility] Last Admin: 03/31/16 05:38 Dose: 300 mg Risperidone (Risperdal -) 2 mg PO TID [facility] Last Admin: 03/31/16 05:38 Dose: 2 mg Senna (Senna -) 2 tab PO BID [facility] Last Admin: 03/31/16 10:45 Dose: 2 tab Sodium Chloride (Normal Saline -) 860 ml IV Q20M PRN PRN Reason: MAP<65mm Hg OR SBP <90 Zinc Sulfate (Orazinc -) 220 mg PO DAILY [facility] Last Admin: 03/31/16 10:45 Dose: 220 mg - Objective Vital Signs: Vital Signs Temperature 99.1 F 03/31/16 06:38 Pulse Rate 98 H 03/31/16 05:15 Respiratory Rate 20 03/31/16 05:15 Blood Pressure 110/58 03/31/16 05:15 O2 Sat by Pulse Oximetry (%) 95 03/30/16 09:00 Constitutional: Yes: No Distress Eyes: Yes: Conjunctiva Clear Cardiovascular: Yes: Regular Rate and Rhythm, S1, S2 Respiratory: Yes: CTA Bilaterally Gastrointestinal: Yes: Normal Bowel Sounds, Soft. No: Tenderness Edema: No Labs: CBC, BMP 03/27/16 06:20 03/27/16 06:20 INR, PTT INR 1.25 (0.82-1.09) H 03/26/16 16:38 Assessment/Plan HCAP cloinically improved Possible sepsis secondary to pneumonia CP Follow up CXR Day # 6 antibiotics May substitute po Augmentin 875mg bid x 7d
[2016-03-31] MEDS: ENOXAPARIN NA (PORCINE) 40 MG/0.4 ML DISP.SYRIN SQ SCH (12:08)
--- NOTE | 2016-03-31 15:42 | PN ---
Teaching Attending Note Name of Resident: Gale Pichardo ATTENDING PHYSICIAN STATEMENT I saw and evaluated the patient. I reviewed the resident's note and discussed the case with the resident. I agree with the resident's findings and plan as documented. SUBJECTIVE: Patient is feeling better, Has no new complain, no chest pain, or shortness of breath. OBJECTIVE: Vital Signs Temperature 98.6 F 03/31/16 15:31 Pulse Rate 94 H 03/31/16 15:31 Respiratory Rate 18 03/31/16 10:00 Blood Pressure 109/61 03/31/16 15:31 O2 Sat by Pulse Oximetry (%) 96 03/31/16 09:00 GENERAL: The patient is awake, alert, and fully oriented, in no acute distress. HEAD: Normal with no signs of trauma. EYES: PERRL, extraocular movements intact, sclera anicteric, conjunctiva clear. No ptosis. ENT: Ears normal, nares patent, oropharynx clear without exudates, dry mucous membranes. NECK: Trachea midline, full range of motion, supple. LUNGS: Breath sounds equal, diminished breath sounds B/L but improving , no wheezes, no crackles, no accessory muscle use. HEART: Regular rate and rhythm, S1, S2 without murmur, rub or gallop. ABDOMEN: Soft, nontender, distended, normoactive bowel sounds, no rebound, no hepatosplenomegaly, no masses. EXTREMITIES: 2+ pulses, warm, well-perfused, no edema. NEUROLOGICAL: Cranial nerves II through XII grossly intact. bed ridden PSYCH: Normal mood, normal affect. SKIN: Warm, dry, normal turgor, no rashes or lesions noted. CBCD WBC 7.0 K/mm3 (4.0-10.0) 03/27/16 06:20 RBC 4.36 M/mm3 (4.00-5.60) 03/27/16 06:20 Hgb 12.8 GM/dL (11.7-16.9) 03/27/16 06:20 Hct 37.9 % (35.4-49) 03/27/16 06:20 MCV 86.9 fl (80-96) 03/27/16 06:20 MCHC 33.7 g/dl (32.0-35.9) 03/27/16 06:20 RDW 13.6 % (11.9-15.9) 03/27/16 06:20 Plt Count 219 K/MM3 (134-434) 03/27/16 06:20 MPV 7.8 fl (7.5-11.1) 03/27/16 06:20 CMP Sodium 139 mmol/L (136-145) 03/27/16 06:20 Potassium 3.9 mmol/L (3.5-5.1) 03/27/16 06:20 Chloride 105 mmol/L (98-107) 03/27/16 06:20 Carbon Dioxide 24 mmol/L (21-32) 03/27/16 06:20 Anion Gap 10 (8-16) 03/27/16 06:20 BUN 8 mg/dL (7-18) 03/27/16 06:20 Creatinine 0.5 mg/dL (0.7-1.3) L D 03/27/16 06:20 Creat Clearance w eGFR > 60 (>60) 03/27/16 06:20 Random Glucose 80 mg/dL (74-106) 03/27/16 06:20 Calcium 8.2 mg/dL (8.5-10.1) L 03/27/16 06:20 Total Bilirubin 0.6 mg/dL (0.2-1.0) 03/27/16 06:20 AST 13 U/L (15-37) L 03/27/16 06:20 ALT 20 U/L (12-78) 03/27/16 06:20 Alkaline Phosphatase 98 U/L (45-117) 03/27/16 06:20 Total Protein 6.6 g/dl (6.4-8.2) 03/27/16 06:20 Albumin 3.5 g/dl (3.4-5.0) 03/27/16 06:20 CARDIAC ENZYMES Creatine Kinase 53 IU/L (39-308) 03/26/16 16:38 Troponin I < 0.02 ng/ml (0.00-0.05) 03/26/16 16:38 Current Medications Generic Name Dose Route Start Last Admin Trade Name Freq PRN Reason Stop Dose Admin Acetaminophen 500 mg 03/27/16 21:06 03/27/16 22:04 Tylenol - PO 500 mg Q6H PRN Administration FEVER OR PAIN Albuterol/Ipratropium 1 amp 03/26/16 20:28 Duoneb - NEB Q6H PRN SHORTNESS OF BREATH Ascorbic Acid 1,000 mg 03/26/16 20:30 03/31/16 10:45 Vitamin C - PO 1,000 mg DAILY SINA Administration Bupropion HCl 200 mg 03/27/16 10:00 03/31/16 10:46 Wellbutrin - PO 200 mg DAILY SINA Administration Enoxaparin Sodium 40 mg 03/27/16 04:26 03/31/16 12:08 Lovenox - SQ 40 mg DAILY SINA Administration Piperacillin Sod/Tazobactam Sod 50 mls @ 100 mls/hr 03/27/16 15:00 03/31/16 10: 46 Zosyn 3.375gm Ivpb (Pre-Docked) IVPB 100 mls/hr Q8H-IV SINA Administration Multivitamins/Minerals/Vitamin C 1 tab 03/26/16 20:30 03/31/16 10:45 Tab-A-Vit - PO 1 tab DAILY SINA Administration Non-Formulary Medication 6 mg 03/26/16 22:00 Melatonin [Melatonin] PO HS SINA Pantoprazole Sodium 20 mg 03/26/16 20:30 03/31/16 10:45 Protonix - PO 20 mg DAILY SINA Administration Polyethylene Glycol 17 gm 03/26/16 22:00 03/31/16 14:44 Miralax (For Daily Use) - PO 17 grams TID SINA Administration Quetiapine Fumarate 300 mg 03/26/16 22:30 03/31/16 14:44 Seroquel - PO 300 mg TID SINA Administration Risperidone 2 mg 03/26/16 22:00 03/31/16 14:44 Risperdal - PO 2 mg TID SINA Administration Senna 2 tab 03/26/16 22:00 03/31/16 10:45 Senna - PO 2 tab BID SINA Administration Sodium Chloride 860 ml 03/26/16 15:28 Normal Saline - IV Q20M PRN MAP<65mm Hg OR SBP <90 Zinc Sulfate 220 mg 03/26/16 20:30 03/31/16 10:45 Orazinc - PO 220 mg DAILY SINA Administration Medication Instructions Recorded Melatonin 6 mg PO HS PRN 03/22/14 Quetiapine Fumarate [Seroquel] 300 mg PO TID 03/22/14 Ascorbic Acid [C-1000] 1,000 mg PO DAILY 08/08/14 Sennosides [Senna -] 2 tab PO BID 08/08/14 Zinc Sulfate 220 mg PO DAILY 08/08/14 Loratadine [Claritin -] 10 mg PO DAILY 06/14/15 Bupropion HCl [Wellbutrin -] 200 mg PO HS tablet 06/21/15 Multivitamins [Multivit ([facility] 1 tab PO DAILY tab 06/21/15 Formulary)] Polyethylene Glycol 3350 [Miralax 17 gm PO TID #1 bottle 06/21/15 (For Daily Use) -] Risperidone [Risperdal -] 2 mg PO TID tablet 06/21/15 Fluticasone Propionate [Flovent 44 mcg IH BID 03/27/16 Diskus] Loperamide HCl [Loperamide] 2 mg PO Q4H PRN 03/27/16 Melatonin 3 mg PO HS 03/27/16 Simethicone 40 mg PO BID 03/27/16 ASSESSMENT AND PLAN: 20 year old male, with PMH of cerebral palsy, gastroesophageal reflux disease, depression with psychotic features and seizure disorders ,was sent from care home to the ED via EMS for the evaluation of fever. #Health CAP on IV antibiotic continue Zosyn discussed with ID ,upon discharge will be given a Rx for AUGMENTIN PO # Cough being evaluated by Luna Payne MBS is ordered. # Hx of GERD ON PO protonix continue Prophylaxis GI: On Protonix DVT px: On SCD's
--- NOTE | 2016-03-31 16:06 | PN ---
Physical Exam: SUBJECTIVE: Patient seen and examined. He is feeling good today. No complaints. He denies SOB, palpitations, chest pain, abdominal pain. OBJECTIVE: Vital Signs Period Temp Pulse Resp BP Sys/Davis Pulse Ox Last 24 Hr 97.8 F-99.3 F 90-98 18-20 109-121/56-61 96 GENERAL: The patient is awake, alert, and fully oriented, in no acute distress. HEAD: Normal with no signs of trauma. EYES: PERRL, extraocular movements intact, sclera anicteric, conjunctiva clear. No ptosis. ENT: Ears normal, nares patent, oropharynx clear without exudates, moist mucous membranes. NECK: Trachea midline, full range of motion, supple. LUNGS: Breath sounds equal, clear to auscultation bilaterally, no wheezes, no crackles, no accessory muscle use. HEART: Regular rate and rhythm, S1, S2 without murmur, rub or gallop. ABDOMEN: Soft, nontender, distended, normoactive bowel sounds, no guarding, no rebound, no hepatosplenomegaly, no masses. EXTREMITIES: 2+ pulses, warm, well-perfused, no edema. NEUROLOGICAL: Cranial nerves II through XII grossly intact.Speech slurred, gait not observed. PSYCH: Normal mood, normal affect. SKIN: Warm, dry, normal turgor, no rashes or lesions noted Active Medications Generic Name Dose Route Start Last Admin Trade Name Freq PRN Reason Stop Dose Admin Acetaminophen 500 mg 03/27/16 21:06 03/27/16 22:04 Tylenol - PO 500 mg Q6H PRN Administration FEVER OR PAIN Albuterol/Ipratropium 1 amp 03/26/16 20:28 Duoneb - NEB Q6H PRN SHORTNESS OF BREATH Ascorbic Acid 1,000 mg 03/26/16 20:30 03/31/16 10:45 Vitamin C - PO 1,000 mg DAILY SINA Administration Bupropion HCl 200 mg 03/27/16 10:00 03/31/16 10:46 Wellbutrin - PO 200 mg DAILY SINA Administration Enoxaparin Sodium 40 mg 03/27/16 04:26 03/31/16 12:08 Lovenox - SQ 40 mg DAILY SINA Administration Piperacillin Sod/Tazobactam Sod 50 mls @ 100 mls/hr 03/27/16 15:00 03/31/16 10: 46 Zosyn 3.375gm Ivpb (Pre-Docked) IVPB 100 mls/hr Q8H-IV SINA Administration Multivitamins/Minerals/Vitamin C 1 tab 03/26/16 20:30 03/31/16 10:45 Tab-A-Vit - PO 1 tab DAILY SINA Administration Non-Formulary Medication 6 mg 03/26/16 22:00 Melatonin [Melatonin] PO HS SINA Pantoprazole Sodium 20 mg 03/26/16 20:30 03/31/16 10:45 Protonix - PO 20 mg DAILY SINA Administration Polyethylene Glycol 17 gm 03/26/16 22:00 03/31/16 14:44 Miralax (For Daily Use) - PO 17 grams TID SINA Administration Quetiapine Fumarate 300 mg 03/26/16 22:30 03/31/16 14:44 Seroquel - PO 300 mg TID SINA Administration Risperidone 2 mg 03/26/16 22:00 03/31/16 14:44 Risperdal - PO 2 mg TID SINA Administration Senna 2 tab 03/26/16 22:00 03/31/16 10:45 Senna - PO 2 tab BID SINA Administration Sodium Chloride 860 ml 03/26/16 15:28 Normal Saline - IV Q20M PRN MAP<65mm Hg OR SBP <90 Zinc Sulfate 220 mg 03/26/16 20:30 03/31/16 10:45 Orazinc - PO 220 mg DAILY SINA Administration ASSESSMENT/PLAN: 20 year old male, with PMH of cerebral palsy, gastroesophageal reflux disease, depression with psychotic features and seizure disorders resident of [facility]. He was sent from [facility] to the ED via EMS for the evaluation of fever. Most likely Health Care Associated Pneumonia -ID consulted, the pt is taking Zosyn day 5 -we did another cxr to f/u left infiltrate -No fever in 24 hrs -speech and swallow consultation done -Nasopharyngeal swab for Influenza sent: negative -sputum culture neg -the pt will be discharged tomorrow Abdominal pain -Patient previously admitted with fecal impaction ? bowel ischemia -Ordered Abdominal x-ray to r/o perforation or any acute pathology: normal GERD -Added Protonix PO -No acute symptoms FEN -Not on IV fluids -No changes -changed to honey liquid diet Prophylaxis For GI: On Protonix 20 mg PO For DVT: On SCD's Disposition; Med surg Problem List - Problems (1) Cerebral palsy Code(s): G80.9 - CEREBRAL PALSY, UNSPECIFIED Qualifiers: Cerebral palsy type: unspecified type Qualified Code(s): G80.9 - Cerebral palsy, unspecified (2) Pneumonia Code(s): J18.9 - PNEUMONIA, UNSPECIFIED ORGANISM Qualifiers: Pneumonia type: due to unspecified organism Laterality: left Lung location: lower lobe of lung Qualified Code(s): J18.9 - Pneumonia, unspecified organism Visit type - Emergency Visit Emergency Visit: Yes ED Registration Date: 03/26/16 Care time: The patient presented to the Emergency Department on the above date and was hospitalized for further evaluation of their emergent condition. - New Patient This patient is new to me today: No - Critical Care Critical Care patient: No - Discharge Referral Referred to [facility] Med P.C.: No
[2016-03-31] MEDS ORDERED: AMOX TR/POT CLAV 875MG/125MG TABLETS (FP) PO ONE (20:00)
[2016-04-01] MEDS: risperiDONE 1 MG TABLET (FP) PO SCH ×2 (05:53→14:02)
[2016-04-01] MEDS: QUEtiapine FUMARATE 100 MG TABLET (FP) PO SCH ×2 (05:53→14:02)
[2016-04-01] MEDS: POLYETHYLENE GLYCOL 3350 119 GM BTL PO SCH ×2 (05:53→14:02)
[2016-04-01] MEDS ORDERED: AMOX TR/POT CLAV 875MG/125MG TABLETS (FP) PO SCH (08:00)
[2016-04-01] MEDS: ENOXAPARIN NA (PORCINE) 40 MG/0.4 ML DISP.SYRIN SQ SCH (10:00)
[2016-04-01] MEDS: ZINC SULFATE 220 MG CAPSULE (FP) PO SCH (10:00)
[2016-04-01] MEDS: ASCORBIC ACID 500 MG TABLET (FP) PO SCH (10:01)
[2016-04-01] MEDS: MULTIVITAMINS (DAILY MVI) TABLET (FP) PO SCH (10:01)
[2016-04-01] MEDS: buPROPion HCL 100 MG TABLET PO SCH (10:01)
[2016-04-01] MEDS: PANTOPRAZOLE 20 MG TABLET (FP) PO SCH (10:01)
[2016-04-01] MEDS: SENNOSIDES 8.6MG TABLET (FP) PO SCH (10:01)
--- NOTE | 2016-04-01 10:41 | DS ---
Physical Exam: SUBJECTIVE: Patient seen and examined. He doesn't have any complaints today. OBJECTIVE: Vital Signs Period Temp Pulse Resp BP Sys/Davis Pulse Ox Last 24 Hr 98.1 F-98.6 F 86-96 18-18 104-109/61-67 97 PHYSICAL EXAM GENERAL: The patient is awake, alert, and fully oriented, in no acute distress. HEAD: Normal with no signs of trauma. EYES: PERRL, sclera anicteric, conjunctiva clear. ENT: Ears normal, nares patent, oropharynx clear without exudates, moist mucous membranes. NECK: Trachea midline, full range of motion, supple. LUNGS: Breath sounds equal, diminished breath sounds bilaterally, no wheezes, no crackles, no accessory muscle use. HEART: Regular rate and rhythm, S1, S2 without murmur, rub or gallop. ABDOMEN: Soft, nontender, distended, normoactive bowel sounds, no guarding, no rebound. EXTREMITIES: 2+ pulses, warm, well-perfused, no edema. NEUROLOGICAL:Normal speech, gait not observed. PSYCH: Normal mood, normal affect. SKIN: Warm, dry, normal turgor, no rashes or lesions noted. LABS HOSPITAL COURSE: Date of Admission:03/26/16 Date of Discharge: 04/01/16 Minutes to complete discharge: 50 Discharge Summary Reason For Visit: SEPSIS; CEREBRAL PALSY; PNEUMONIA Current Active Problems Abdominal distention (Acute) Cerebral palsy (Acute) Pneumonia (Acute) Sepsis (Acute) Hospital Course: 20 year old male, resident of [facility], was sent from [facility] to the ED via EMS for the evaluation of fever. As per the patient, he mentions he had right sided chest pain, sharp in quality, 7/10 in intensity, radiating towards the back, associated with nausea but no vomiting. Chest pain was associated with productive sputum, bringing up greenish/whitish sputum, no blood noticed along with SOB on/off. Patient mentions his SOB is chronic. Denies fever, chills, rigors or sweating. Patient also complaints of RLQ abdominal pain, x 3-4days, sharp in nature, 7/10 in intensity with bloating of abdomen. States that he has had distention, bloating is a chronic problem but the pain is new.Denies headache, fever, chills , rigors or sweating. Upon ER arrival, patient is found to have a temperature of 101.0, HR of 120 and RR of 30 and was immediately placed on a non-rebreather. Hospital course; We admitted the pt for HCAP. We did chest X ray that showed left sided infiltrate, sputum culture was negative, nasopharyngeal swab for Influenza was negative, we consulted ID, he finished 5 days of Zosyn. He clinically improved. We also order speech and swallow evaluation and modified barium swallow. It is recommended to have trial of dysphagia ground diet including tunafish, egg salad , pancakes mashed with maple syrup. Consider trial of thin liquid and stay upright for an hour after a meal. He also had history of abdominal distention and fecal impaction. We did abdominal x ray that didn't show any acute changes, perforation. We recommend to take Augumentin BID for 7 days. Condition: Improved - Instructions Diet, Activity, Other Instructions: Please see your Primary Care Physician in a week. Please take Augumentin 875mg orally twice a day for 7 days. We recommend to obtain CT of the chest as outpatient to follow up the left sided infiltrate in one month that is visible on chest X ray. Last CXR was done 03/31/16. If you have shortness of breath, chest pain, palpitations, cough, fever, bleeding come to Emergency Room as soon as possible. Referrals: Anshu Sherwood MD [Staff Physician] - Gwyn Ordonez [Primary Care Provider] - Disposition: HOME - Home Medications Comprehensive Discharge Medication List: Ambulatory Orders Melatonin 6 mg PO HS PRN 03/22/14 Quetiapine Fumarate [Seroquel] 300 mg PO TID 03/22/14 Ascorbic Acid [C-1000] 1,000 mg PO DAILY 08/08/14 Sennosides [Senna -] 2 tab PO BID 08/08/14 Zinc Sulfate 220 mg PO DAILY 08/08/14 Loratadine [Claritin -] 10 mg PO DAILY 06/14/15 Bupropion HCl [Wellbutrin -] 200 mg PO HS tablet 06/21/15 Multivitamins [Multivit ([facility] Formulary)] 1 tab PO DAILY tab 06/21/15 Polyethylene Glycol 3350 [Miralax 119 gm Btl -] 17 gm PO TID #1 bottle 06/21/15 Risperidone [Risperdal -] 2 mg PO TID tablet 06/21/15 Fluticasone Propionate [Flovent Diskus] 44 mcg IH BID 03/27/16 Loperamide HCl [Loperamide] 2 mg PO Q4H PRN 03/27/16 Melatonin 3 mg PO HS 03/27/16 Simethicone 40 mg PO BID 03/27/16 Amoxicillin/Potassium Clav [Augmentin 875-125 Tablet] 1 tab PO BID #14 tablet Problem List - Problems (1) Cerebral palsy Code(s): G80.9 - CEREBRAL PALSY, UNSPECIFIED Qualifiers: Cerebral palsy type: unspecified type Qualified Code(s): G80.9 - Cerebral palsy, unspecified (2) Pneumonia Code(s): J18.9 - PNEUMONIA, UNSPECIFIED ORGANISM Qualifiers: Pneumonia type: due to unspecified organism Laterality: left Lung location: lower lobe of lung Qualified Code(s): J18.9 - Pneumonia, unspecified organism This patient is new to me today: No Emergency Visit: Yes ED Registration Date: 03/26/16 Care time: The patient presented to the Emergency Department on the above date and was hospitalized for further evaluation of their emergent condition. Critical Care patient: No - Discharge Referral Referred to [facility] Med P.C.: No
--- NOTE | 2016-04-01 10:58 | PN ---
Teaching Attending Note Name of Resident: Gale Pichardo ATTENDING PHYSICIAN STATEMENT I saw and evaluated the patient. I reviewed the resident's note and discussed the case with the resident. I agree with the resident's findings and plan as documented. SUBJECTIVE: Patient is feeling better, no new complains, no shortness of breath. OBJECTIVE: Vital Signs Temperature 98.5 F 04/01/16 06:07 Pulse Rate 91 H 04/01/16 06:07 Respiratory Rate 18 04/01/16 06:07 Blood Pressure 106/67 04/01/16 06:07 O2 Sat by Pulse Oximetry (%) 97 03/31/16 21:00 GENERAL: The patient is awake, alert, and fully oriented, in no acute distress. HEAD: Normal with no signs of trauma. EYES: PERRL, extraocular movements intact, sclera anicteric, conjunctiva clear. ENT: Ears normal, oropharynx clear without exudates, dry mucous membranes. NECK: Trachea midline, full range of motion, supple. LUNGS: Breath sounds equal, CTA BL , no wheezes, no crackles, no accessory muscle use. HEART: Regular rate and rhythm, S1, S2 without murmur, rub or gallop. ABDOMEN: Soft, nontender, distended, normoactive bowel sounds, no rebound, no hepatosplenomegaly, no masses. EXTREMITIES: 2+ pulses, warm, well-perfused, no edema. NEUROLOGICAL: Cranial nerves II through XII grossly intact. bed ridden PSYCH: Normal mood, normal affect. SKIN: Warm, dry, normal turgor, no rashes or lesions noted. CBCD WBC 7.0 K/mm3 (4.0-10.0) 03/27/16 06:20 RBC 4.36 M/mm3 (4.00-5.60) 03/27/16 06:20 Hgb 12.8 GM/dL (11.7-16.9) 03/27/16 06:20 Hct 37.9 % (35.4-49) 03/27/16 06:20 MCV 86.9 fl (80-96) 03/27/16 06:20 MCHC 33.7 g/dl (32.0-35.9) 03/27/16 06:20 RDW 13.6 % (11.9-15.9) 03/27/16 06:20 Plt Count 219 K/MM3 (134-434) 03/27/16 06:20 MPV 7.8 fl (7.5-11.1) 03/27/16 06:20 CMP Sodium 139 mmol/L (136-145) 03/27/16 06:20 Potassium 3.9 mmol/L (3.5-5.1) 03/27/16 06:20 Chloride 105 mmol/L (98-107) 03/27/16 06:20 Carbon Dioxide 24 mmol/L (21-32) 03/27/16 06:20 Anion Gap 10 (8-16) 03/27/16 06:20 BUN 8 mg/dL (7-18) 03/27/16 06:20 Creatinine 0.5 mg/dL (0.7-1.3) L D 03/27/16 06:20 Creat Clearance w eGFR > 60 (>60) 03/27/16 06:20 Random Glucose 80 mg/dL (74-106) 03/27/16 06:20 Calcium 8.2 mg/dL (8.5-10.1) L 03/27/16 06:20 Total Bilirubin 0.6 mg/dL (0.2-1.0) 03/27/16 06:20 AST 13 U/L (15-37) L 03/27/16 06:20 ALT 20 U/L (12-78) 03/27/16 06:20 Alkaline Phosphatase 98 U/L (45-117) 03/27/16 06:20 Total Protein 6.6 g/dl (6.4-8.2) 03/27/16 06:20 Albumin 3.5 g/dl (3.4-5.0) 03/27/16 06:20 CARDIAC ENZYMES Creatine Kinase 53 IU/L (39-308) 03/26/16 16:38 Troponin I < 0.02 ng/ml (0.00-0.05) 03/26/16 16:38 Current Medications Generic Name Dose Route Start Last Admin Trade Name Freq PRN Reason Stop Dose Admin Acetaminophen 500 mg 03/27/16 21:06 03/27/16 22:04 Tylenol - PO 500 mg Q6H PRN Administration FEVER OR PAIN Albuterol/Ipratropium 1 amp 03/26/16 20:28 Duoneb - NEB Q6H PRN SHORTNESS OF BREATH Amoxicillin/Clavulanate Potassium 1 tab 04/01/16 08:00 04/01/16 10:00 Augmentin - 875mg Tablet PO 1 tab BID@0800,1730 SINA Administration Ascorbic Acid 1,000 mg 03/26/16 20:30 04/01/16 10:01 Vitamin C - PO 1,000 mg DAILY SINA Administration Bupropion HCl 200 mg 03/27/16 10:00 04/01/16 10:01 Wellbutrin - PO 200 mg DAILY SINA Administration Enoxaparin Sodium 40 mg 03/27/16 04:26 04/01/16 10:00 Lovenox - SQ 40 mg DAILY SINA Administration Multivitamins/Minerals/Vitamin C 1 tab 03/26/16 20:30 04/01/16 10:01 Tab-A-Vit - PO 1 tab DAILY SINA Administration Non-Formulary Medication 6 mg 03/26/16 22:00 Melatonin [Melatonin] PO HS SINA Pantoprazole Sodium 20 mg 03/26/16 20:30 04/01/16 10:01 Protonix - PO 20 mg DAILY SINA Administration Polyethylene Glycol 17 gm 03/26/16 22:00 04/01/16 05:53 Miralax (For Daily Use) - PO 17 grams TID SINA Administration Quetiapine Fumarate 300 mg 03/26/16 22:30 04/01/16 05:53 Seroquel - PO 300 mg TID SINA Administration Risperidone 2 mg 03/26/16 22:00 04/01/16 05:53 Risperdal - PO 2 mg TID SINA Administration Senna 2 tab 03/26/16 22:00 04/01/16 10:01 Senna - PO 2 tab BID SINA Administration Sodium Chloride 860 ml 03/26/16 15:28 Normal Saline - IV Q20M PRN MAP<65mm Hg OR SBP <90 Zinc Sulfate 220 mg 03/26/16 20:30 04/01/16 10:00 Orazinc - PO 220 mg DAILY SINA Administration ASSESSMENT AND PLAN: 20 year old male, with PMH of cerebral palsy, gastroesophageal reflux disease, depression with psychotic features and seizure disorders ,was sent from [facility] to the ED via EMS for the evaluation of fever. #Health CAP completed IV antibiotic Zosyn , discharging the patient on Augmentin 875mg bid x 7d , follow with PMD in a week period. # Hx of GERD ON PO protonix continue # MBS Report is being sent to custodial by Luna Payne. 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
[2016-04-01 11:08] VITALS: BP 112/65; PULSE 90; TEMP 98.3
--- NOTE | 2016-04-01 13:32 | PN ---
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 Report to be sent to senior care. Monitor tolerance of PO intake
== END 2016-04-01 14:16 | disposition home or self-care (01) | DRG 871 ==
LOC: JER 14:34 → JERBED 17:35 → J8W 03-27 14:24
PROVIDERS: ADMIT Internal Medicine; ATTEND Internal Medicine
DX: A41.9 Sepsis, unspecified organism (principal); J18.9 Pneumonia, unspecified organism; F33.3 Major depressive disorder, recurrent, severe with psychotic symptoms; G80.9 Cerebral palsy, unspecified; K21.9 Gastro-esophageal reflux disease without esophagitis; G40.909 Epilepsy, unspecified, not intractable, without status epilepticus; R10.31 Right lower quadrant pain; R47.1 Dysarthria and anarthria; K59.09 Other constipation
CPT/HCPCS: 36415; 71010-TC; 71020-TC; 74020-TC; 74230-TC; 80053; 81003; 82550; 82803; 83605; 84484; 85025; 85610; 85730; 86850; 86900; 86901; 87040; 87081; 87086; 87254; 87804; 87899; 92611-GN; 93005; 93010; 99283-25; J2794

== ENCOUNTER 2016-04-16 11:52 | Emergency (ER) | payer OTHER ==
[2016-04-16 12:38] VITALS: TEMP 98; BMI 21.7
--- NOTE | 2016-04-16 12:52 | PDOC ---
History of Present Illness - General Chief Complaint: Cold Symptoms Stated Complaint: SOB Time Seen by Provider: 04/16/16 12:48 History Source: Patient, Care Provider, Old Records Exam Limitations: No Limitations - History of Present Illness Initial Comments: 04/16/16 12:50 CHIEF COMPLAINT: Cough HISTORY OF PRESENT ILLNESS: This is a 20 year old male resident of the [facility] with a history of cerebral palsy, GERD, depression with psychotic features, and seizure disorder, recently hospitalized here from 03/26- and treated with Zosyn for HCAP, discharged on Augmentin. He presents to the ED today for evaluation of Surgical history includes implanted Baclofen pump. Smoking:None Alcohol: None Drugs: None V/s on arrival are notable for P 114. REVIEW OF SYSTEMS: GENERAL/CONSTITUTIONAL: Fevers, chills. No weakness. No weight change. HEAD, EYES, EARS, NOSE AND THROAT: No change in vision. No ear pain or discharge. No sore throat. CARDIOVASCULAR: No chest pain or palpitations. RESPIRATORY: Worsening cough. No shortness of breath. GASTROINTESTINAL: No nausea, vomiting, diarrhea or constipation. GENITOURINARY: No dysuria, frequency, or change in urination. MUSCULOSKELETAL: No joint or muscle swelling or pain. No neck or back pain. SKIN: No rash or easy bruising. NEUROLOGIC: Generalized headache. No vertigo, loss of consciousness, or loss of sensation. PSYCHIATRIC: No depression or anxiety. ENDOCRINE: No increased thirst. No abnormal weight change. HEMATOLOGIC/LYMPHATIC: No anemia, easy bleeding, or history of blood clots. ALLERGIC/IMMUNOLOGIC: No hives or skin allergy. No latex allergy. PHYSICAL EXAM: GENERAL: The patient is awake, alert, and fully oriented, in no acute distress. ENT: Pupils equal, round and reactive to light, extraocular movements intact, sclera anicteric, conjunctiva clear. Neck supple. Mucous membranes dry. LUNGS: Clear to auscultation bilaterally. Normal excursion. No respiratory distress or use of accessory muscles. CV: RRR, S1/S2, no MRG. Cap refill < 2 sec. ABDOMEN: Soft, non-distended, non-tender. EXTREMITIES: Contracted. NEUROLOGICAL: Speech is baseline. CN II-XII grossly intact. PSYCH: Normal mood, normal affect. SKIN: Warm, dry, normal turgor, no rashes or lesions noted. Past History - Past Medical History Allergies/Adverse Reactions: Allergies Allergy/AdvReac Type Severity Reaction Status Date / Time No Known Allergies Allergy Verified 04/16/16 12:30 Home Medications: Ambulatory Orders Melatonin 6 mg PO HS PRN 03/22/14 Quetiapine Fumarate [Seroquel] 300 mg PO TID 03/22/14 Ascorbic Acid [C-1000] 1,000 mg PO DAILY 08/08/14 Sennosides [Senna -] 2 tab PO BID 08/08/14 Zinc Sulfate 220 mg PO DAILY 08/08/14 Loratadine [Claritin -] 10 mg PO DAILY 06/14/15 Bupropion HCl [Wellbutrin -] 200 mg PO HS tablet 06/21/15 Multivitamins [Multivit ([facility] Formul[facility])] 1 tab PO DAILY tab 06/21/15 Polyethylene Glycol 3350 [Miralax 119 gm Btl -] 17 gm PO TID #1 bottle 06/21/15 Risperidone [Risperdal -] 2 mg PO TID tablet 06/21/15 Fluticasone Propionate [Flovent Diskus] 44 mcg IH BID 03/27/16 Loperamide HCl [Loperamide] 2 mg PO Q4H PRN 03/27/16 Melatonin 3 mg PO HS 03/27/16 Simethicone 40 mg PO BID 03/27/16 Amoxicillin/Potassium Clav [Augmentin 875-125 Tablet] 1 tab PO BID #14 tablet Anemia: No Asthma: No Cancer: No Cardiac Disorders: No CVA: No COPD: No CHF: No Dementia: No Diabetes: No GI Disorders: Yes (GERD) Disorders: No HTN: No Hypercholesterolemia: No Liver Disease: No Psychiatric Problems: Yes (DEPRESSION W.PHSYCHOTIC FEATURES,BIPOLAR) Suicide Attempt (Hx): No Seizures: Yes Thyroid Disease: No - Surgical History Abdominal Surgery: No Appendectomy: No Cardiac Surgery: No Cholecystectomy: No Lung Surgery: No Neurologic Surgery: No Orthopedic Surgery: No - Immunization History Immunization Up to Date: Yes - Psycho/Social/Smoking Cessation Hx Anxiety: No Suicidal Ideation: No Smoking History: Never smoked Have you smoked in the past 12 months: No Hx Alcohol Use: No Drug/Substance Use Hx: No Substance Use Type: None Hx Substance Use Treatment: No *Physical Exam - Vital Signs Last Vital Signs Temp Pulse Resp BP Pulse Ox 98.0 F 114 H 20 124/84 97 04/16/16 12:31 04/16/16 12:31 04/16/16 12:31 04/16/16 12:31 04/16/16 12:31 Medical Decision Making - Medical Decision Making 04/16/16 15:07 A/P: 20 year old male complaining of cough and headache. Currently being treated for PNA. Appears dehydrated. 1. IV fluids 2. Tylenol for headache. 3. Repeat CXR 4. Flu swab 5. Re-evaluate 04/16/16 16:34 Influenza negative. CXR reviewed: subsegmental atelectasis in the ADELA, previously noted. Work of breathing is even and unlabored. Repeat HR after IVF is within normal limits. Will return to SNF- discussed with mother and facility physician. *DC/Admit/Observation/Transfer Diagnosis at time of Disposition: Pneumonia Qualifiers: Pneumonia type: due to unspecified organism Laterality: left Lung location: upper lobe of lung Qualified Code(s): J18.9 - Pneumonia, unspecified organism - Discharge Dispostion Disposition: HOME Admit: No - Referrals Referrals: Martin Martinez MD [Primary Care Provider] - - Patient Instructions Printed Discharge Instructions: DI for Dehydration -- Adult Additional Instructions: -Abel's xray was repeated today and his pneumonia has not worsened -He was given 1.5L of NS for dehydration and Tylenol 650mg for headache -Please return him here for difficulty breathing, fever, or any other concerning symptoms
[2016-04-16] MEDS ORDERED: SODIUM CHLORIDE 1,000 ML IV STA (14:14)
[2016-04-16] MEDS ORDERED: ACETAMINOPHEN 325 MG TABLET (FP) PO ONE (14:15)
[2016-04-16] MEDS ORDERED: ACETAMINOPHEN 650 MG/20.3 ML ORAL SOLUTION (CUPS) PO ONE (14:23)
[2016-04-16] MEDS ORDERED: ACETAMINOPHEN 650 MG/20.3 ML ORAL SOLUTION (CUPS) ONE (14:25)
[2016-04-16 15:56] VITALS: BP 137/78
[2016-04-16] MEDS ORDERED: SODIUM CHLORIDE 500 ML IV STA (16:02)
[2016-04-16 16:46] VITALS: PULSE 92
== END 2016-04-16 17:20 | disposition home or self-care (01) ==
LOC: JER 11:52
PROC: 3E0F7GC Introduction of Other Therapeutic Substance into Respiratory Tract, Via Natural or Artificial Opening (ICD-10-PCS; principal; 2016-04-16)
DX: J18.9 Pneumonia, unspecified organism (principal); K21.9 Gastro-esophageal reflux disease without esophagitis; F32.3 Major depressive disorder, single episode, severe with psychotic features; F06.8 Other specified mental disorders due to known physiological condition; R56.9 Unspecified convulsions
CPT/HCPCS: 71010-TC; 87804; 96361; 96365; 99282-25

== ENCOUNTER 2016-05-15 13:30 | Emergency (ER) | payer OTHER ==
[2016-05-15 13:54] VITALS: BMI 26.6
--- NOTE | 2016-05-15 14:07 | PDOC ---
*Physical Exam - Vital Signs Last Vital Signs Temp Pulse Resp BP Pulse Ox 98.7 F 95 H 20 127/92 100 05/15/16 13:51 05/15/16 13:51 05/15/16 13:51 05/15/16 13:51 05/15/16 13:51 - Physical Exam Comments: 05/15/16 14:07 Pt seen by the Advanced Practice Provider under my direct supervision Pt interviewed and examined Ancillary studies reviewed I agree with plan as outlined by the Advanced Practice Provider ED Treatment Course - LABORATORY CBC & Chemistry Diagram: 05/15/16 14:20 05/15/16 15:12 *DC/Admit/Observation/Transfer Diagnosis at time of Disposition: Pleuritic chest pain - Discharge Dispostion Disposition: HOME Condition at time of disposition: Good - Referrals Referrals: Bry Adams [Primary Care Provider] - - Patient Instructions Additional Instructions: Patient had EKG, chest x-ray and labs including d-dimer that were all negative. Pain most likely muscular. As there is no evidence of any serious condition at this time. Patient was given Tylenol for pain and sent back to facility in stable conditions. Pt's mother aware of disposition and requesting that [place] staff contact her when pt arrives at facility
[2016-05-15] MEDS ORDERED: INSULIN REGULAR HUMAN 100 UNITS/ML *VIAL IVPUSH ONE (14:17)
--- NOTE | 2016-05-15 14:48 | PDOC ---
History of Present Illness - General Chief Complaint: Pain, Acute Stated Complaint: SOB Time Seen by Provider: 05/15/16 14:05 History Source: Patient - History of Present Illness Timing/Duration: reports: this afternoon Associated Symptoms: reports: chest pain/soreness. denies: lightheadedness, shortness of breath Past History - Past Medical History Allergies/Adverse Reactions: Allergies Allergy/AdvReac Type Severity Reaction Status Date / Time No Known Allergies Allergy Verified 04/16/16 12:30 Home Medications: Ambulatory Orders Melatonin 6 mg PO HS PRN 03/22/14 Quetiapine Fumarate [Seroquel] 300 mg PO TID 03/22/14 Ascorbic Acid [C-1000] 1,000 mg PO DAILY 08/08/14 Sennosides [Senna -] 2 tab PO BID 08/08/14 Zinc Sulfate 220 mg PO DAILY 08/08/14 Loratadine [Claritin -] 10 mg PO DAILY 06/14/15 Bupropion HCl [Wellbutrin -] 200 mg PO HS tablet 06/21/15 Multivitamins [Multivit ([facility] Formul[facility])] 1 tab PO DAILY tab 06/21/15 Polyethylene Glycol 3350 [Miralax 119 gm Btl -] 17 gm PO TID #1 bottle 06/21/15 Risperidone [Risperdal -] 2 mg PO TID tablet 06/21/15 Fluticasone Propionate [Flovent Diskus] 44 mcg IH BID 03/27/16 Loperamide HCl [Loperamide] 2 mg PO Q4H PRN 03/27/16 Melatonin 3 mg PO HS 03/27/16 Simethicone 40 mg PO BID 03/27/16 Amoxicillin/Potassium Clav [Augmentin 875-125 Tablet] 1 tab PO BID #14 tablet Anemia: No Asthma: No Cancer: No Cardiac Disorders: No CVA: No COPD: No CHF: No Dementia: No Diabetes: No GI Disorders: Yes (GERD) Disorders: No HTN: No Hypercholesterolemia: No Liver Disease: No Psychiatric Problems: Yes (DEPRESSION W.PHSYCHOTIC FEATURES,BIPOLAR) Suicide Attempt (Hx): No Seizures: Yes Thyroid Disease: No - Surgical History Abdominal Surgery: No Appendectomy: No Cardiac Surgery: No Cholecystectomy: No Lung Surgery: No Neurologic Surgery: No Orthopedic Surgery: No - Immunization History Immunization Up to Date: Yes - Psycho/Social/Smoking Cessation Hx Anxiety: No Suicidal Ideation: No Smoking History: Never smoked Have you smoked in the past 12 months: No Hx Alcohol Use: No Drug/Substance Use Hx: No Substance Use Type: None Hx Substance Use Treatment: No Review of Systems - Review of Systems Constitutional: No: Chills, Fever Respiratory: Yes: Cough Cardiac (ROS): Yes: Chest Pain ABD/GI: No: Nausea, Vomiting *Physical Exam - Vital Signs Last Vital Signs Temp Pulse Resp BP Pulse Ox 98.7 F 95 H 20 127/92 100 05/15/16 13:51 05/15/16 13:51 05/15/16 13:51 05/15/16 13:51 05/15/16 13:51 - Physical Exam General Appearance: Yes: Appropriately Dressed. No: Apparent Distress HEENT: positive: Normal Voice Neck: positive: Supple Respiratory/Chest: positive: Lungs Clear, Normal Breath Sounds. negative: Chest Tender, Respiratory Distress Cardiovascular: positive: Regular Rate, S1, S2 Gastrointestinal/Abdominal: positive: Soft. negative: Tender Extremity: positive: Normal Inspection Integumentary: positive: Dry, Warm Neurologic: positive: Alert, Normal Mood/Affect ED Treatment Course - LABORATORY CBC & Chemistry Diagram: 05/15/16 14:20 05/15/16 15:12 - RADIOLOGY Radiology Studies Ordered: Category Date Time Status CHEST X-RAY PORTABLE* [RAD] Stat Radiology 05/15/16 14:45 Ordered Medical Decision Making - Medical Decision Making 05/15/16 14:46 20-year-old male, history of cerebral palsy, mild intellectual disability, depression, recurrent with psychotic features, bipolar disorder, seizure, double hernia, pneumonia, sent from [facility] after pt c/o sob today, worse when supine, better when he sits up. Pt now states he has some pain "over my ribs" on the R side and that pain worsens w/ deep inspiration, otherwise not truly sob. No cp, diaphoresis, palpitations. n/v or edema. No trauma See exam Pleuritic R sided CP Mostly bed bound so consider PE though not tachy in ED, r/o recurrent PNA but unlikely given no cough/fever, unlikely cardiac, possibly MSK, no reported trauma Stable in and NAD Chest/lungs clear, no reproducible ttp No edema -labs including dimer -cxr -dispo pending 05/15/16 14:56 05/15/16 15:00 05/15/16 16:35 05/15/16 16:43 Workup negative in ED and patient has remained stable. Will discharge back to facility at this time *DC/Admit/Observation/Transfer Diagnosis at time of Disposition: Pleuritic chest pain - Discharge Dispostion Disposition: HOME Condition at time of disposition: Good - Referrals Referrals: Bry Adams [Primary Care Provider] - - Patient Instructions Additional Instructions: Patient had EKG, chest x-ray and labs including d-dimer that were all negative. Pain most likely muscular. As there is no evidence of any serious condition at this time. Patient was given Tylenol for pain and sent back to facility in stable conditions. Pt's mother aware of disposition and requesting [facility] staff [facility] pt arrives at facility
[2016-05-15 14:52] LABS: BASOPHIL 0.7 % (0-2.0); EOSINOPHIL 3.3 % (0-4.5); MCH 28.3 pg (25.7-33.7); MCHC 32.6 g/dl (32.0-35.9); MEAN CELL VOLUME 86.9 fl (80-96); NEUTROPHILS 48.5 % (42.8-82.8); PLATELET COUNT 190 K/MM3 (134-434); RDW 14.7 % (11.9-15.9)
[2016-05-15 14:57] LABS: ALBUMIN 3.9 g/dl (3.4-5.0); ANION GAP 6 (8-16); BILIRUBIN,TOTAL 0.4 mg/dL (0.2-1.0); CO2 27 mmol/L (21-32); CREATININE 0.6 mg/dL (0.7-1.3); GLUCOSE,RANDOM 85 mg/dL (74-106); SGPT/ALT 35 U/L (12-78); TOT PROT 7.5 g/dl (6.4-8.2)
[2016-05-15 14:58] LABS: ALK PHOS 101 U/L (45-117)
[2016-05-15 15:12] LABS: SGOT/AST 57 U/L (15-37)
[2016-05-15 15:53] LABS: ALBUMIN 4.2 g/dl (3.4-5.0); ALK PHOS 110 U/L (45-117); ANION GAP 8 (8-16); BILIRUBIN,TOTAL 0.3 mg/dL (0.2-1.0); CALCIUM 9.3 mg/dL (8.5-10.1); CO2 27 mmol/L (21-32); CREATININE 0.5 mg/dL (0.7-1.3); GLUCOSE,RANDOM 89 mg/dL (74-106); SGOT/AST 14 U/L (15-37); SGPT/ALT 28 U/L (12-78); TOT PROT 7.5 g/dl (6.4-8.2)
[2016-05-15] MEDS ORDERED: ACETAMINOPHEN 325 MG TABLET (FP) PO ONE (16:03)
[2016-05-15 16:16] LABS: URINE APPEARANCE CLEAR; URINE BILIRUBIN NEGATIVE (NEGATIVE); URINE BLOOD NEGATIVE (NEGATIVE); URINE COLOR LTYELLOW; URINE GLUCOSE (UA) NEGATIVE (NEGATIVE); URINE KETONE NEGATIVE (NEGATIVE); URINE LEUK ESTERASE NEGATIVE (NEGATIVE); URINE NITRITE NEGATIVE (NEGATIVE); URINE PROTEIN NEGATIVE (NEGATIVE); URINE UROBILINOGEN NEGATIVE E.U./dl (0.2-1.0)
[2016-05-15] MEDS ORDERED: ACETAMINOPHEN 325 MG TABLET (FP) ONE (16:54)
[2016-05-15 17:26] VITALS: BP 130/88; PULSE 80; TEMP 98.4
--- NOTE | 2016-05-16 10:01 | EKG ---
Test Reason : Blood Pressure : / mmHG Vent. Rate : 098 BPM Atrial Rate : 098 BPM P-R Int : 114 ms QRS Dur : 100 ms QT Int : 376 ms P-R-T Axes : 030 014 034 degrees QTc Int : 480 ms NORMAL SINUS RHYTHM POSSIBLE LEFT ATRIAL ENLARGEMENT INCOMPLETE RIGHT BUNDLE BRANCH BLOCK PROLONGED QT ABNORMAL ECG WHEN COMPARED WITH ECG OF 26-MAR-2016 18:35, NO SIGNIFICANT CHANGE WAS FOUND Confirmed by JEANNIE SCOTT MD ([id number]) on 05/16/2016 10:00:53 AM Referred By: Confirmed By:JEANNIE SCOTT MD
== END 2016-05-15 18:30 | disposition home or self-care (01) ==
LOC: JER 13:30
DX: R07.89 Other chest pain (principal); G80.9 Cerebral palsy, unspecified; F70 Mild intellectual disabilities; F31.9 Bipolar disorder, unspecified; G43.909 Migraine, unspecified, not intractable, without status migrainosus
CPT/HCPCS: 36415; 71010-TC; 80053; 81003; 85025; 85379; 93005; 93010; 99284-25

== ENCOUNTER 2016-06-07 14:52 | Emergency (ER) | payer OTHER ==
[2016-06-07 15:16] VITALS: TEMP 98.4; BMI 28.3
--- NOTE | 2016-06-07 15:35 | PDOC ---
[id number] 4d ABDOMINAL PAIN,CHEST PAIN Time Seen by Provider: 06/07/16 14:56 History Source: Patient Exam Limitations: No Limitations - History of Present Illness Travel History: No Initial Comments: 06/07/16 15:08 20-year-old male brought in by residential staff workers for evaluation of generalized abdominal pain since yesterday. Patient had last bowel movement yesterday morning as per records that was noted as hard or small. Patient denies nausea, fever, chills, chest pain, shortness of breath, back pain, or decreased appetite. Patient with history of cerebral palsy with the baclofen pump, and scoliosis. Timing/Duration: reports: constant Quality: reports: moderate, cramping Abdominal Pain Onset Location: reports: generalized abdomen Pain Radiation: reports: no radiation Activities at Onset: reports: none Aggravating Factors: improves with: None Alleviating Factors: improves with: None Past History - Past Medical History Allergies/Adverse Reactions: Allergies Allergy/AdvReac Type Severity Reaction Status Date / Time No Known Allergies Allergy Verified 06/07/16 16:04 Home Medications: Ambulatory Orders Acetaminophen 650 mg PO Q4H PRN 06/07/16 Albuterol Sulfate Liquid [Ventolin *Liquid*] 2 mg PO TID 06/07/16 Ascorbic Acid [C-1000] 1,000 mg PO DAILY 06/07/16 Baclofen 30 mg PO Q8H PRN 06/07/16 Bupropion HCl [Wellbutrin -] 200 mg PO HS 06/07/16 Fluticasone Propionate [Flovent Diskus] 50 mcg IH BID 06/07/16 Glycolic Acid 100 ml PO TID 06/07/16 Grape Seed Extract [Grape Seed] 25 mg PO DAILY 06/07/16 Loperamide HCl [Loperamide] 2 mg PO Q4H PRN 06/07/16 Melatonin 3 mg PO HS 06/07/16 Multivitamin [Poly-Vitamin] 1 each PO DAILY 06/07/16 Quetiapine Fumarate [Quetiapine Fumarate ER] 300 mg PO TID 06/07/16 Risperidone 2 mg PO TID 06/07/16 Sennosides [Senna] 17.2 mg PO BID 06/07/16 Simethicone Liquid [Mylicon] 40 mg PO BID 06/07/16 Anemia: No Asthma: No Cancer: No Cardiac Disorders: No CVA: No COPD: No CHF: No Dementia: No Diabetes: No GI Disorders: Yes (GERD) Disorders: No HTN: No Hypercholesterolemia: No Liver Disease: No Psychiatric Problems: Yes (DEPRESSION W.PHSYCHOTIC FEATURES,BIPOLAR) Suicide Attempt (Hx): No Seizures: Yes Thyroid Disease: No - Surgical History Abdominal Surgery: No Appendectomy: No Cardiac Surgery: No Cholecystectomy: No Lung Surgery: No Neurologic Surgery: No Orthopedic Surgery: No - Immunization History Immunization Up to Date: Yes - Psycho/Social/Smoking Cessation Hx Anxiety: No Suicidal Ideation: No Smoking History: Never smoked Have you smoked in the past 12 months: No Hx Alcohol Use: No Drug/Substance Use Hx: No Substance Use Type: None Hx Substance Use Treatment: No Patient Lives Alone: No Lives with/in: [facility] Review of Systems - Review of Systems Able to Perform ROS?: Yes Constitutional: No: Symptoms Reported HEENTM: No: Symptoms Reported Respiratory: No: Symptoms reported Cardiac (ROS): No: Symptoms Reported ABD/GI: Yes: Abdominal cramping : No: Symptoms Reported Musculoskeletal: No: Symptoms Reported Integumentary: No: Symptoms Reported *Physical Exam - Vital Signs Last Vital Signs Temp Pulse Resp BP Pulse Ox 98.4 F 84 18 147/84 100 06/07/16 15:02 06/07/16 15:02 06/07/16 15:02 06/07/16 15:02 06/07/16 15:02 - Physical Exam General Appearance: Yes: Nourished, Appropriately Dressed. No: Apparent Distress Respiratory/Chest: positive: Lungs Clear, Normal Breath Sounds. negative: Respiratory Distress, Accessory Muscle Use Cardiovascular: positive: Regular Rhythm, Regular Rate. negative: Murmur Gastrointestinal/Abdominal: positive: Normal Bowel Sounds, Soft, Distended, Tenderness (generalized mild) Integumentary: positive: Normal Color, Warm, Moist Neurologic: positive: Normal Mood/Affect ED Treatment Course - LABORATORY CBC & Chemistry Diagram: 06/07/16 21:00 06/07/16 21:00 - RADIOLOGY Radiology Studies Ordered: Category Date Time Status KUB (KID UR & BLAD) [RAD] Stat Radiology 06/07/16 15:10 Ordered Medical Decision Making - Medical Decision Making 06/07/16 15:36 Patient with generalized abdominal pain since yesterday. Patient's last bowel movement was yesterday and recorded soft and brown. Patient upon arrival here had a large soft bowel movement but due to patient's history patient will be ordered for a KUB to rule out obstruction. 06/07/16 17:42 Although patient states is feeling slightly better with abdominal pain he still states mild pressure and was noted distention. Second x-ray unable to confirm or rule out obstruction versus megacolon. Patient ordered for abdominal/pelvic CT without contrast. *DC/Admit/Observation/Transfer Diagnosis at time of Disposition: Constipation - Discharge Dispostion Disposition: HOME Condition at time of disposition: Improved - Referrals Referrals: Gwyn Ordonez [Primary Care Provider] - - Patient Instructions Printed Discharge Instructions: DI for Constipation Additional Instructions: Pt had large bowel movement in ED. A Cat scan was done on patient confirming constipation with no signs of obstruction. We also performed an US of right upper quadrant given equivocal findings of gallbladder on CT scan. US does show gallstones and gallbladder wall thickening. However patient's abdomen was non- tender and his liver function tests were negative so we do not suspect acute cholecystitis at this time. Pt was discharged with bowel regimen for his constiaption and should follow with PMD and a medical office assistant instructor. Pt to continue miralax as discussed w/ Dr Duran
--- NOTE | 2016-06-07 19:20 | PDOC ---
*Physical Exam - Vital Signs Last Vital Signs Temp Pulse Resp BP Pulse Ox 98.4 F 84 18 147/84 100 06/07/16 15:02 06/07/16 15:02 06/07/16 15:02 06/07/16 15:02 06/07/16 15:02 - Physical Exam General Appearance: Yes: Appropriately Dressed. No: Apparent Distress HEENT: positive: Normal Voice Neck: positive: Supple Respiratory/Chest: negative: Respiratory Distress Gastrointestinal/Abdominal: positive: Normal Bowel Sounds, Soft. negative: Tender, Distended, Guarding, Rebound Integumentary: positive: Dry, Warm Neurologic: positive: Alert, Normal Mood/Affect ED Treatment Course - LABORATORY CBC & Chemistry Diagram: 06/07/16 21:00 06/07/16 21:00 Medical Decision Making - Medical Decision Making 06/07/16 19:17 Received signout at 7 PM Patient is a 20-year-old male, history of cerebral palsy, mild intellectual disability, depression, recurrent with psychotic features, bipolar disorder, seizure, double hernia, pneumonia, sent from [facility] for constipation. It is reported that last bowel movement was yesterday, but small and hard. As per prior team, patient had a large BM while in ED but KUB with ? shortness of breath versus megacolon. Dry scan now pending. 06/07/16 19:20 06/07/16 20:48 CT read as diffuse colonic distention containing gas and large amount of retained stool in the right colon w/ ?impacted stool in rectosigmoid. No colonic thickening or small bowel distention and appendix normal. Also seen are gallstones with possible thickening of the gallbladder wall, will need right upper quadrant sono for correlation. In addition, there is thickening of the bladder wall, concerning for cystitis as per radiology. On re-eval, pt has no tenderness over RUQ and not impacted on rectal exam. Labs and right upper quadrant US pending 06/07/16 23:56 06/07/16 23:57 06/07/16 23:57 Labs and ua neg. RUQ US read as gallstones w/ GBW thickening, no pericholecystic fluid. Based on pt's exam and labs, do not suspect acute sy at this time. Pt stable for discharge w/ bowel regimen. Will discharge w/ copy of CT and US, for pt to f/u with his PMD 06/08/16 00:09 Pt's PMD, Dr Duran, informed of disposition. States pt on miralax at [facility]. States she will call facility to arrange transport. Pt's mother also aware of disposition. *DC/Admit/Observation/Transfer Diagnosis at time of Disposition: Constipation Qualifiers: Constipation type: unspecified constipation type Qualified Code(s): K59.00 - Constipation, unspecified - Discharge Dispostion Disposition: HOME Condition at time of disposition: Improved - Patient Instructions Additional Instructions: Pt had large bowel movement in ED. A Cat scan was done on patient confirming constipation with no signs of obstruction. We also performed an US of right upper quadrant given equivocal findings of gallbladder on CT scan. US does show gallstones and gallbladder wall thickening. However patient's abdomen was non- tender and his liver function tests were negative so we do not suspect acute cholecystitis at this time. Pt was discharged with bowel regimen for his constiaption and should follow with PMD and a statistician theoretical. Pt to continue miralax as discussed w/ Dr Duran
[2016-06-07 21:06] LABS: BASOPHIL 0.4 % (0-2.0); EOSINOPHIL 2.4 % (0-4.5); MCH 28.8 pg (25.7-33.7); MCHC 33.6 g/dl (32.0-35.9); MEAN CELL VOLUME 85.7 fl (80-96); NEUTROPHILS 59.7 % (42.8-82.8); PLATELET COUNT 176 K/MM3 (134-434); RDW 13.9 % (11.9-15.9); WHITE BLOOD COUNT 6.3 K/mm3 (4.0-10.0)
[2016-06-07 21:30] LABS: ALK PHOS 106 U/L (45-117); ANION GAP 10 (8-16); BILIRUBIN,TOTAL 0.3 mg/dL (0.2-1.0); CO2 26 mmol/L (21-32); CREATININE 0.5 mg/dL (0.7-1.3); GLUCOSE,RANDOM 87 mg/dL (74-106); SGPT/ALT 44 U/L (12-78); TOT PROT 7.3 g/dl (6.4-8.2)
[2016-06-07 21:34] LABS: URINE APPEARANCE CLOUDY; URINE BILIRUBIN NEGATIVE (NEGATIVE); URINE BLOOD NEGATIVE (NEGATIVE); URINE COLOR LTYELLOW; URINE GLUCOSE (UA) NEGATIVE (NEGATIVE); URINE KETONE NEGATIVE (NEGATIVE); URINE LEUK ESTERASE NEGATIVE (NEGATIVE); URINE NITRITE NEGATIVE (NEGATIVE); URINE PROTEIN NEGATIVE (NEGATIVE); URINE UROBILINOGEN NEGATIVE E.U./dl (0.2-1.0)
[2016-06-07 21:36] LABS: SGOT/AST 26 U/L (15-37)
[2016-06-08 01:39] VITALS: BP 162/78; PULSE 94
== END 2016-06-08 01:39 | disposition home or self-care (01) ==
LOC: JER 14:52
DX: K59.00 Constipation, unspecified (principal); K80.20 Calculus of gallbladder without cholecystitis without obstruction; F31.9 Bipolar disorder, unspecified; G80.8 Other cerebral palsy; F70 Mild intellectual disabilities; Z86.69 Personal history of other diseases of the nervous system and sense organs
CPT/HCPCS: 36415; 74000-TC; 74176-TC; 76705-TC; 80053; 81003; 85025; 87086; 99284-25

== ENCOUNTER 2016-07-14 12:51 | Emergency (ER) | payer OTHER ==
[2016-07-14 12:59] VITALS: BP 129/93; PULSE 107; TEMP 97.5; BMI 26.6
--- NOTE | 2016-07-14 14:29 | PDOC ---
History of Present Illness - General Chief Complaint: Pain Stated Complaint: rt. upper extremity pain Time Seen by Provider: 07/14/16 13:46 History Source: Patient, Care Provider, Other (spoke to director of graduate medical education Dr. Duran she reports "it is his rt arm" ) - History of Present Illness Initial Comments: 07/14/16 14:29 07/14/16 14:40 Chief complaint: Right upper arm pain with swelling History of present illness: Patient is a 20-year-old male from [facility] with mild intellectual disability, cerebral palsy, GERD, depression recurrent with psychotic features, bipolar disorder, here today with staff reporting right upper arm discomfort with redness of area noted today. Patient reports "I hit it on the wall ". Patient is afebrile. Slight swelling of the right upper lateral arm is felt no gross deformity noted. Patient reports that he is moving his arm as usual with limitations due to his cerebral palsy. Rash from [facility] originally stated right lower extremity called director of graduate medical education Dr. Duran she verified that it was her right arm. 07/14/16 14:43 Occurred: reports: this morning Severity: reports: mild Pain Location: reports: upper extremity Method of Injury: Yes: direct blow (to the wall according to pt. ) Modifying Factors: improves with: None Loss of Consciousness: no loss of consciousness Associated Symptoms (Fall): other (rt. upper arm swelling with erythema ) Past History - Past Medical History Allergies/Adverse Reactions: Allergies Allergy/AdvReac Type Severity Reaction Status Date / Time No Known Allergies Allergy Verified 07/14/16 12:56 Home Medications: Ambulatory Orders Acetaminophen 650 mg PO Q4H PRN 06/07/16 Albuterol Sulfate Liquid [Ventolin *Liquid*] 2 mg PO TID 06/07/16 Ascorbic Acid [C-1000] 1,000 mg PO DAILY 06/07/16 Baclofen 30 mg PO Q8H PRN 06/07/16 Bupropion HCl [Wellbutrin -] 200 mg PO HS 06/07/16 Fluticasone Propionate [Flovent Diskus] 50 mcg IH BID 06/07/16 Glycolic Acid 100 ml PO TID 06/07/16 Grape Seed Extract [Grape Seed] 25 mg PO DAILY 06/07/16 Loperamide HCl [Loperamide] 2 mg PO Q4H PRN 06/07/16 Melatonin 3 mg PO HS 06/07/16 Multivitamin [Poly-Vitamin] 1 each PO DAILY 06/07/16 Quetiapine Fumarate [Quetiapine Fumarate ER] 300 mg PO TID 06/07/16 Risperidone 2 mg PO TID 06/07/16 Sennosides [Senna] 17.2 mg PO BID 06/07/16 Simethicone Liquid [Mylicon] 40 mg PO BID 06/07/16 Anemia: No Asthma: No Cancer: No Cardiac Disorders: No CVA: No COPD: No CHF: No Dementia: No Diabetes: No GI Disorders: Yes (GERD) Disorders: No HTN: No Hypercholesterolemia: No Liver Disease: No Psychiatric Problems: Yes (DEPRESSION W.PHSYCHOTIC FEATURES,BIPOLAR) Suicide Attempt (Hx): No Seizures: Yes Thyroid Disease: No Other medical history: mild intellectual disability - Surgical History Abdominal Surgery: No Appendectomy: No Cardiac Surgery: No Cholecystectomy: No Lung Surgery: No Neurologic Surgery: No Orthopedic Surgery: No - Immunization History Immunization Up to Date: Yes - Psycho/Social/Smoking Cessation Hx Anxiety: No Suicidal Ideation: No Smoking History: Never smoked Have you smoked in the past 12 months: No Information on smoking cessation initiated: No Hx Alcohol Use: No Drug/Substance Use Hx: No Substance Use Type: None Hx Substance Use Treatment: No Review of Systems - Review of Systems Able to Perform ROS?: Yes Constitutional: No: Symptoms Reported HEENTM: No: Symptoms Reported Respiratory: No: Symptoms reported Cardiac (ROS): No: Symptoms Reported ABD/GI: No: Symptoms Reported : No: Symptoms Reported Musculoskeletal: Yes: Joint Pain (rt. upper arm ), Joint Swelling (rt. upper arm ) Integumentary: Yes: Erythema (rt. dorsal forearm, upper arm ) Neurological: No: Symptoms reported *Physical Exam - Vital Signs Last Vital Signs Temp Pulse Resp BP Pulse Ox 97.5 F L 107 H 18 129/93 100 07/14/16 12:57 07/14/16 12:57 07/14/16 12:57 07/14/16 12:57 07/14/16 12:57 - Physical Exam General Appearance: Yes: Appropriately Dressed Respiratory/Chest: positive: Lungs Clear, Normal Breath Sounds Cardiovascular: positive: Regular Rhythm, Regular Rate, S1, S2 Comments:: 07/14/16 14:45 radial pulse 4 + rt Extremity: positive: Normal Capillary Refill, Tender (rt. upper lateral arm ), Swelling (rt,. upper lateral arm ). negative: Normal Range of Motion ( decreased range of motion (this is normal for him with CP) rt.arm at shoulder, elbow, wrist and all digits rt. hand ) Integumentary: positive: Erythema (rt. upper lateral arm, rt. dorsal forearm pea size area of erythema ) Neurologic: positive: Normal Response, Respond to painful stimul (rt. forearm, upper arm ) Medical Decision Making - Medical Decision Making 07/14/16 14:44 Patient is a 20-year-old male from [facility] with mild intellectual disability, cerebral palsy, GERD, depression recurrent with psychotic features, bipolar disorder, here today with staff reporting right upper arm discomfort with redness of area noted today. Patient reports "I hit it on the wall ". Patient is afebrile. Slight swelling of the right upper lateral arm is felt no gross deformity noted. Patient reports that he is moving his arm as usual with limitations due to his cerebral palsy. Rash from [facility] originally stated right lower extremity called director of graduate medical education Dr. Duran she verified that it was her right arm. Pt. reports pain in minimal R/O fracture rt. arm Contusion rt. upper arm PLAN: xray rt. forearm limited study no fracture noted per Dr. Tabares xray rt. humerous limited study no fracture noted per given acetaminophen 650 mg every 6 hrs as needed for pain. apply ice to rt. upper arm every 3 hours for 10 minute each time today while awake Fransico Duran called left message [phone] 07/14/16 15:42 07/14/16 15:56 *DC/Admit/Observation/Transfer Diagnosis at time of Disposition: Contusion of arm, right Qualifiers: Encounter type: initial encounter Qualified Code(s): S40.021A - Contusion of right upper arm, initial encounter - Discharge Dispostion Disposition: HOME Condition at time of disposition: Stable - Referrals Referrals: Gwyn Ordonez [Primary Care Provider] - Ajit Guzman MD [Staff Physician] - - Patient Instructions Additional Instructions: apply ice to right upper arm every 3 hours while awake today for 10 minutes give acetaminophen 650 mg as needed every 4- 6 hrs for pain Follow-up with primary care provider or rthopedist for further evaluation within the next 2 days Return to emergency room if symptoms worsen or new symptoms develop Information given to staff from Sathya Ariza and all questions were answered
== END 2016-07-14 16:11 | disposition home or self-care (01) ==
LOC: JERFT 12:51
DX: S40.021A Contusion of right upper arm, initial encounter (principal); W22.8XXA Striking against or struck by other objects, initial encounter; Y92.118 Other place in children's home and orphanage as the place of occurrence of the external cause; G80.8 Other cerebral palsy; F70 Mild intellectual disabilities; K21.9 Gastro-esophageal reflux disease without esophagitis; F32.9 Major depressive disorder, single episode, unspecified; G40.909 Epilepsy, unspecified, not intractable, without status epilepticus
CPT/HCPCS: 73060-TC-RT; 73090-TC-RT; 99281-25

== ENCOUNTER 2016-12-28 13:20 | Emergency (ER) | payer OTHER ==
[2016-12-28 13:29] VITALS: BMI 26.7
--- NOTE | 2016-12-28 14:09 | PDOC ---
Attending Attestation - HPI HPI: 12/28/16 14:34 21 y/o M with a h/o cerebral palsy, GERD sent from [facility] to the ED with generalized abdominal pain. Patient reports the pain is crampy, mid epigastric pain. He states the pain is exacerbated after eating. He reports associated nausea and states his abdomen is slightly distended. His last BM was today in the ED. Denies chest pain, SOB. Denies fever, chills, vomiting, diarrhea. - Medical Decision Making 12/28/16 14:34 Documentation prepared by Ruchi Godwin, acting as certified medical assistant for Mildred Medina MD. <Ruchi Godwin - Last Filed: 12/28/16 14:34> - Resident Resident Name: Dagoberto Knutson - ED Attending Attestation I have performed the following: I have examined & evaluated the patient, The case was reviewed & discussed with the resident, I agree w/resident's findings & plan, Exceptions are as noted - Physicial Exam PE: GENERAL: Awake, alert, and fully oriented, in no acute distress HEAD: No signs of trauma EYES: PERRLA, EOMI, sclera anicteric, conjunctiva clear ENT: Auricles normal inspection, hearing grossly normal, nares patent, oropharynx clear without exudates. Moist mucosa NECK: Normal ROM, supple, no lymphadenopathy, JVD, or masses LUNGS: Breath sounds equal, clear to auscultation bilaterally. No wheezes, and no crackles HEART: Tachycardic, normal S1 and S2, no murmurs, rubs or gallops ABDOMEN: Soft, protuberant, +RUQ tenderness. Normoactive bowel sounds. No guarding, no rebound. No masses EXTREMITIES: Normal range of motion, no edema. No clubbing or cyanosis. No cords, erythema, or tenderness NEUROLOGICAL: Cranial nerves II through XII grossly intact. Normal speech. Wheelchair-bound. SKIN: Warm, Dry, normal turgor, no rashes or lesions noted. - Medical Decision Making Pt with RUQ pain, nausea. History of cerebral palsy, which makes exam slightly more difficult. Will obtain labs and RUQ ultrasound. If wnl, DC home. <Mildred Medina - Last Filed: 12/28/16 15:54>
--- NOTE | 2016-12-28 14:23 | PDOC ---
History of Present Illness - General Chief Complaint: Pain Stated Complaint: ABD PAIN, BODYACHE Time Seen by Provider: 12/28/16 14:05 History Source: Patient Exam Limitations: No Limitations - History of Present Illness Initial Comments: 12/30/16 12:52 Pt is a 21 year old M with pmh of cerebral palsy sent from [facility] for abdominal pain. Pain is crampy, mid epigastric, nonradiating. Pain is worse with food. He endorses nausea. Denies chest pain, sob, vomiting, fever, chills, diarrhea. Patient feels mildly distended Past History - Past Medical History Allergies/Adverse Reactions: Allergies Allergy/AdvReac Type Severity Reaction Status Date / Time No Known Allergies Allergy Verified 12/28/16 13:29 Home Medications: Ambulatory Orders Acetaminophen 650 mg PO Q4H PRN 06/07/16 Albuterol Sulfate Liquid [Ventolin *Liquid*] 2 mg PO TID 06/07/16 Ascorbic Acid [C-1000] 1,000 mg PO DAILY 06/07/16 Baclofen 30 mg PO Q8H PRN 06/07/16 Bupropion HCl [Wellbutrin -] 200 mg PO HS 06/07/16 Fluticasone Propionate [Flovent Diskus] 50 mcg IH BID 06/07/16 Glycolic Acid 100 ml PO TID 06/07/16 Grape Seed Extract [Grape Seed] 25 mg PO DAILY 06/07/16 Loperamide HCl [Loperamide] 2 mg PO Q4H PRN 06/07/16 Melatonin 3 mg PO HS 06/07/16 Multivitamin [Poly-Vitamin] 1 each PO DAILY 06/07/16 Quetiapine Fumarate [Quetiapine Fumarate ER] 300 mg PO TID 06/07/16 Risperidone 2 mg PO TID 06/07/16 Sennosides [Senna] 17.2 mg PO BID 06/07/16 Simethicone Liquid [Mylicon] 40 mg PO BID 06/07/16 Cephalexin [Keflex] 500 mg PO Q6H #28 capsule 12/28/16 Sulfamethoxazole/Trimethoprim [Bactrim Ds -] 1 tab PO BID #14 tablet 12/28/16 Anemia: No Asthma: No Cancer: No Cardiac Disorders: No CVA: No COPD: No CHF: No Dementia: No Diabetes: No GI Disorders: Yes (GERD) Disorders: No HTN: No Hypercholesterolemia: No Liver Disease: No Psychiatric Problems: Yes (DEPRESSION W.PHSYCHOTIC FEATURES,BIPOLAR) Seizures: Yes Thyroid Disease: No Other medical history: CEREBRAL PALSY - Surgical History Abdominal Surgery: No Appendectomy: No Cardiac Surgery: No Cholecystectomy: No Lung Surgery: No Neurologic Surgery: No Orthopedic Surgery: No - Immunization History Immunization Up to Date: Yes - Suicide/Smoking/Psychosocial Hx Smoking History: Never smoked Have you smoked in the past 12 months: No Hx Alcohol Use: No Drug/Substance Use Hx: No Substance Use Type: None Hx Substance Use Treatment: No Review of Systems - Review of Systems Constitutional: Yes: See HPI HEENTM: Yes: See HPI Respiratory: Yes: See HPI Cardiac (ROS): Yes: See HPI ABD/GI: Yes: See HPI *Physical Exam - Vital Signs Last Vital Signs Temp Pulse Resp BP Pulse Ox 98.0 F 111 H 20 148/94 98 12/28/16 13:24 12/28/16 13:24 12/28/16 13:24 12/28/16 13:24 12/28/16 13:24 - Physical Exam General Appearance: Yes: Appropriately Dressed. No: Apparent Distress HEENT: positive: Normal ENT Inspection Neck: positive: Trachea midline Respiratory/Chest: positive: Lungs Clear, Normal Breath Sounds Cardiovascular: positive: Regular Rhythm, Regular Rate, S1, S2 Gastrointestinal/Abdominal: positive: Normal Bowel Sounds, Tender (midepigastric , ruq), Soft ED Treatment Course - LABORATORY CBC & Chemistry Diagram: 12/28/16 14:57 12/28/16 14:57 Medical Decision Making - Medical Decision Making Plan: Get labs and RUQ ultrasound. Labs and RUQ within nml. Will dc patient. *DC/Admit/Observation/Transfer Diagnosis at time of Disposition: Abdominal pain Qualifiers: Abdominal location: right upper quadrant Qualified Code(s): R10.11 - Right upper quadrant pain - Discharge Dispostion Disposition: HOME Condition at time of disposition: Stable - Prescriptions Prescriptions: Sulfamethoxazole/Trimethoprim [Bactrim Ds -] 1 tab PO BID #14 tablet Cephalexin [Keflex] 500 mg PO Q6H #28 capsule - Patient Instructions Printed Discharge Instructions: DI for Cellulitis -- Adult, DI for Abdominal Pain-Adult Additional Instructions: Follow up with your primary care provider within 1 week. If your abdominal pain worsens or if you have chest pain/shortness of breath, come back to the hospital immediately.
[2016-12-28] MEDS ORDERED: SODIUM CHLORIDE 1,000 ML IV STA (14:27)
[2016-12-28] MEDS ORDERED: ONDANSETRON 4 MG/2 ML VIAL IVPUSH ONE (14:27)
[2016-12-28] MEDS ORDERED: ONDANSETRON 4 MG/2 ML VIAL ONE (14:35)
[2016-12-28 15:03] LABS: BASOPHIL 0.9 % (0-2.0); EOSINOPHIL 2.7 % (0-4.5); MCH 28.6 pg (25.7-33.7); MCHC 33.7 g/dl (32.0-35.9); MEAN PLT VOLUME 7.5 fl (7.5-11.1); NEUTROPHILS 58.3 % (42.8-82.8); PLATELET COUNT 212 K/MM3 (134-434); RDW 13.1 % (11.9-15.9); WHITE BLOOD COUNT 3.8 K/mm3 (4.0-10.0)
[2016-12-28 15:35] LABS: ALBUMIN 4.4 g/dl (3.4-5.0); ANION GAP 10 (8-16); CALCIUM 9.5 mg/dL (8.5-10.1); CO2 25 mmol/L (21-32); CREATININE 0.4 mg/dL (0.7-1.3); GLUCOSE,RANDOM 91 mg/dL (74-106)
[2016-12-28 15:39] LABS: ALK PHOS 127 U/L (45-117); BILIRUBIN,TOTAL 0.5 mg/dL (0.2-1.0); SGPT/ALT 33 U/L (12-78); TOT PROT 7.9 g/dl (6.4-8.2)
[2016-12-28 15:40] LABS: SGOT/AST 33 U/L (15-37)
[2016-12-28] MEDS ORDERED: CEPHALEXIN MONOHYDRATE 500 MG CAPSULE (UD) PO ONE (18:45)
[2016-12-28] MEDS ORDERED: SULFAMETHOXAZOLE/TRIMETHOPRIM 800MG/160MG D.S. TABLET PO ONE (18:45)
[2016-12-28] MEDS ORDERED: CEPHALEXIN MONOHYDRATE 250 MG CAPSULE (FP) ONE (18:48)
[2016-12-28] MEDS ORDERED: SULFAMETHOXAZOLE/TRIMETHOPRIM 800MG/160MG D.S. TABLET ONE (18:48)
[2016-12-28 19:04] VITALS: BP 133/78; PULSE 95; TEMP 98.6
== END 2016-12-28 19:04 | disposition home or self-care (01) ==
LOC: JER 13:20
PROC: 3E033GC Introduction of Other Therapeutic Substance into Peripheral Vein, Percutaneous Approach (ICD-10-PCS; principal; 2016-12-28)
DX: R10.11 Right upper quadrant pain (principal); K21.9 Gastro-esophageal reflux disease without esophagitis; F31.9 Bipolar disorder, unspecified; G80.9 Cerebral palsy, unspecified
CPT/HCPCS: 36415; 76705-TC; 80053; 83690; 85025; 96374; 99284-25

== ENCOUNTER 2017-01-01 17:01 | Inpatient (IN) | payer OTHER ==
--- NOTE | 2017-01-01 18:05 | PDOC ---
History of Present Illness <Onur Song - Last Filed: 01/01/17 23:17> - General History Source: Patient Exam Limitations: No Limitations - History of Present Illness Initial Comments: 01/01/17 19:09 The patient is a 21 year old male resident from [facility] with a significant past medical history of cerebral palsy, GERD, Depression, Seizures, constipation who presents to the emergency department with diffuse abdominal pain. Patient reports constipation and states that he has not passed flatus since yesterday. Patient was seen on 12/28/2016 for epigastric pain and was discharged with negative workup. He denies chest pain, headache or dizziness. He denies fever, chills, nausea, vomit, diarrhea. He denies dysuria, frequency, urgency or hematuria. Patient denies sick contacts or recent travel. <Sameera Landis - Last Filed: 01/01/17 23:40> - General Chief Complaint: Tachycardia Stated Complaint: STOMACH PAIN/ CHEST PAIN Time Seen by Provider: 01/01/17 18:04 Past History - Past Medical History Anemia: No Asthma: No Cancer: No Cardiac Disorders: No CVA: No COPD: No CHF: No Dementia: No Diabetes: No GI Disorders: Yes (GERD) Disorders: No HTN: No Hypercholesterolemia: No Liver Disease: No Psychiatric Problems: Yes (DEPRESSION W.PHSYCHOTIC FEATURES,BIPOLAR) Seizures: Yes Thyroid Disease: No Other medical history: constipation - Surgical History Abdominal Surgery: No Appendectomy: No Cardiac Surgery: No Cholecystectomy: No Lung Surgery: No Neurologic Surgery: No Orthopedic Surgery: No - Immunization History Immunization Up to Date: Yes - Suicide/Smoking/Psychosocial Hx Smoking History: Never smoked Have you smoked in the past 12 months: No Hx Alcohol Use: No Drug/Substance Use Hx: No Substance Use Type: None Hx Substance Use Treatment: No <Onur Song - Last Filed: 01/01/17 23:17> <Sameera Landis - Last Filed: 01/01/17 23:40> - Past Medical History Allergies/Adverse Reactions: Allergies Allergy/AdvReac Type Severity Reaction Status Date / Time No Known Allergies Allergy Verified 01/01/17 17:21 Home Medications: Ambulatory Orders Acetaminophen 650 mg PO Q4H PRN 06/07/16 Albuterol Sulfate Liquid [Ventolin *Liquid*] 2 mg PO TID 06/07/16 Ascorbic Acid [C-1000] 1,000 mg PO DAILY 06/07/16 Baclofen 30 mg PO Q8H PRN 06/07/16 Bupropion HCl [Wellbutrin -] 200 mg PO HS 06/07/16 Fluticasone Propionate [Flovent Diskus] 50 mcg IH BID 06/07/16 Glycolic Acid 100 ml PO TID 06/07/16 Grape Seed Extract [Grape Seed] 25 mg PO DAILY 06/07/16 Loperamide HCl [Loperamide] 2 mg PO Q4H PRN 06/07/16 Melatonin 3 mg PO HS 06/07/16 Multivitamin [Poly-Vitamin] 1 each PO DAILY 06/07/16 Quetiapine Fumarate [Quetiapine Fumarate ER] 300 mg PO TID 06/07/16 Risperidone 2 mg PO TID 06/07/16 Sennosides [Senna] 17.2 mg PO BID 06/07/16 Simethicone Liquid [Mylicon] 40 mg PO BID 06/07/16 Cephalexin [Keflex] 500 mg PO Q6H #28 capsule 12/28/16 Sulfamethoxazole/Trimethoprim [Bactrim Ds -] 1 tab PO BID #14 tablet 12/28/16 Review of Systems - Review of Systems Able to Perform ROS?: Yes Comments:: 01/01/17 19:09 GENERAL/CONSTITUTIONAL: No fever or chills. No weakness. HEAD, EYES, EARS, NOSE AND THROAT: No change in vision. No ear pain or discharge. No sore throat. CARDIOVASCULAR: No chest pain or shortness of breath. RESPIRATORY: No cough, wheezing, or hemoptysis. GASTROINTESTINAL: No nausea, vomiting, diarrhea. +constipation. +abdominal pain. GENITOURINARY: No dysuria, frequency, or change in urination. MUSCULOSKELETAL: No joint or muscle swelling or pain. No neck or back pain. SKIN: No rash NEUROLOGIC: No headache, vertigo, loss of consciousness, or change in strength/ sensation. ENDOCRINE: No increased thirst. No abnormal weight change. HEMATOLOGIC/LYMPHATIC: No anemia, easy bleeding, or history of blood clots. ALLERGIC/IMMUNOLOGIC: No hives or skin allergy. <Sameera Landis - Last Filed: 01/01/17 23:40> *Physical Exam - Vital Signs Last Vital Signs Temp Pulse Resp BP Pulse Ox 97.8 F 122 H 20 149/90 97 01/01/17 17:05 01/01/17 17:05 01/01/17 17:05 01/01/17 17:05 01/01/17 17:05 <Onur Song - Last Filed: 01/01/17 23:17> - Vital Signs Last Vital Signs Temp Pulse Resp BP Pulse Ox 97.8 F 122 H 20 149/90 97 01/01/17 17:05 01/01/17 17:05 01/01/17 17:05 01/01/17 17:05 01/01/17 17:05 - Physical Exam Comments: 01/01/17 19:09 GENERAL: Awake, alert, and fully oriented, in no acute distress HEAD: No signs of trauma EYES: PERRLA, EOMI, sclera anicteric, conjunctiva clear ENT: Auricles normal inspection, hearing grossly normal, nares patent, oropharynx clear without exudates. Moist mucosa NECK: Normal ROM, supple, no lymphadenopathy, JVD, or masses LUNGS: Breath sounds equal, clear to auscultation bilaterally. No wheezes, and no crackles HEART: Regular rate and rhythm, normal S1 and S2, no murmurs, rubs or gallops ABDOMEN: +Distended abdomen, hard. Tympanitic abdomen with no bowel sounds. The pocket for the abdominal pump is clean. No guarding, no rebound. No masses EXTREMITIES: Normal range of motion, no edema. No clubbing or cyanosis. No cords, erythema, or tenderness NEUROLOGICAL: Cranial nerves II through XII grossly intact. Normal speech, normal gait SKIN: Warm, Dry, normal turgor, no rashes or lesions noted. <Sameera Landis - Last Filed: 01/01/17 23:40> ED Treatment Course - LABORATORY CBC & Chemistry Diagram: 01/01/17 19:00 01/01/17 19:00 <Onur Song - Last Filed: 01/01/17 23:17> - LABORATORY CBC & Chemistry Diagram: 01/01/17 19:00 01/01/17 19:00 <Sameera Landis - Last Filed: 01/01/17 23:40> Medical Decision Making - Medical Decision Making 01/01/17 23:40 CTAP Impression: 1. Moderate volume of stool within the rectosigmoid colon. Disimpaction is recommended. 2. Prominent diffuse colonic distention without transition point raises the possibility of pseudoobstruction/decreased parasympathetic activity. Please correlate clinically for underlying electrolyte abnormalities, correlate with patient's medications and other risk factors. 3. Cholelithiasis with gallbladder wall thickening and no CT evidence of acute cholecystitis. Please correlate clinically. Gallbladder wall thickening is nonspecific and may be secondary to chronic cholecystitis. Reported By: Darling Ren MD 01/01/17 2248 <Sameera Landis - Last Filed: 01/01/17 23:40> *DC/Admit/Observation/Transfer - Discharge Dispostion Admit: Yes - Attestations Physician Attestion: 01/01/17 18:04 I, Dr. Onur Song, attest that this document has been prepared under my direction and personally reviewed by me in its entirety. I further attest, that it accurately reflects all work, treatment, procedures and medical decision -making performed by me. <Onur Song - Last Filed: 01/01/17 23:17> - Attestations Scribe Attestion: 01/01/17 19:09 Documentation prepared by Sameera Landis, acting as medical aides teacher for Onur Song MD/DO. <Sameera Landis - Last Filed: 01/01/17 23:40> Diagnosis at time of Disposition: Constipation by delayed colonic transit, Obstipation, Abdominal pain in male, Pseudo-obstruction of colon Constipation Qualifiers: Constipation type: slow transit constipation Qualified Code(s): K59.01 - Slow transit constipation - Discharge Dispostion Condition at time of disposition: Unchanged/Unknown
[2017-01-01] MEDS ORDERED: SODIUM CHLORIDE 1,000 ML IV STA (18:15)
[2017-01-01 19:23] LABS: BASOPHIL 0.5 % (0-2.0); EOSINOPHIL 2.9 % (0-4.5); MCH 29.1 pg (25.7-33.7); MCHC 33.4 g/dl (32.0-35.9); MEAN CELL VOLUME 87.2 fl (80-96); MEAN PLT VOLUME 8.1 fl (7.5-11.1); PLATELET COUNT 215 K/MM3 (134-434); RDW 13.6 % (11.9-15.9); WHITE BLOOD COUNT 4.6 K/mm3 (4.0-10.0)
[2017-01-01 19:34] LABS: INR 1.03 (0.82-1.09); PROTHROMBIN TIME (PATIENT) 11.6 SEC (9.98-11.88)
[2017-01-01 19:44] LABS: ALBUMIN 4.2 g/dl (3.4-5.0); ANION GAP 8 (8-16); BILIRUBIN,TOTAL 0.4 mg/dL (0.2-1.0); CALCIUM 8.7 mg/dL (8.5-10.1); CO2 25 mmol/L (21-32); CREATININE 0.6 mg/dL (0.7-1.3); GLUCOSE,RANDOM 97 mg/dL (74-106); SGPT/ALT 33 U/L (12-78); TOT PROT 7.6 g/dl (6.4-8.2)
[2017-01-01 19:47] LABS: ALK PHOS 121 U/L (45-117); TROPONIN I < 0.02 ng/ml (0.00-0.05)
[2017-01-01 19:48] LABS: CPK 151 IU/L (39-308); SGOT/AST 22 U/L (15-37)
[2017-01-02] MEDS ORDERED: PEG 3350/NA SULF BICARB CL/KCL 4000 ML SOLN.RECON PO ONE (00:36)
--- NOTE | 2017-01-02 09:41 | PN ---
Teaching Attending Note Name of Resident: Jim Almaraz ATTENDING PHYSICIAN STATEMENT I saw and evaluated the patient. I reviewed the resident's note and discussed the case with the resident. I agree with the resident's findings and plan as documented. SUBJECTIVE: OBJECTIVE: Vital Signs Period Temp Pulse Resp BP Sys/Davis Pulse Ox Last 24 Hr 97.8 F 122 20 149/90 97 Home Medications Medication Instructions Recorded Acetaminophen 650 mg PO Q4H PRN 06/07/16 Albuterol Sulfate Liquid [Ventolin 2 mg PO TID 06/07/16 *Liquid*] Ascorbic Acid [C-1000] 1,000 mg PO DAILY 06/07/16 Baclofen 30 mg PO Q8H PRN 06/07/16 Bupropion HCl [Wellbutrin -] 200 mg PO HS 06/07/16 Fluticasone Propionate [Flovent 50 mcg IH BID 06/07/16 Diskus] Glycolic Acid 100 ml PO TID 06/07/16 Grape Seed Extract [Grape Seed] 25 mg PO DAILY 06/07/16 Loperamide HCl [Loperamide] 2 mg PO Q4H PRN 06/07/16 Melatonin 3 mg PO HS 06/07/16 Multivitamin [Poly-Vitamin] 1 each PO DAILY 06/07/16 Quetiapine Fumarate [Quetiapine 300 mg PO TID 06/07/16 Fumarate ER] Risperidone 2 mg PO TID 06/07/16 Sennosides [Senna] 17.2 mg PO BID 06/07/16 Simethicone Liquid [Mylicon] 40 mg PO BID 06/07/16 Cephalexin [Keflex] 500 mg PO Q6H #28 capsule 12/28/16 Sulfamethoxazole/Trimethoprim 1 tab PO BID #14 tablet 12/28/16 [Bactrim Ds -] Laboratory Tests 01/01/17 01/01/17 01/01/17 19:00 19:00 19:00 WBC 4.6 RBC 4.95 Hgb 14.4 Hct 43.1 MCV 87.2 MCH 29.1 MCHC 33.4 RDW 13.6 Plt Count 215 MPV 8.1 Neutrophils % 57.0 Lymphocytes % 29.5 Monocytes % 10.1 Eosinophils % 2.9 Basophils % 0.5 PT with INR 11.60 INR 1.03 Sodium 138 Potassium 4.3 Chloride 105 Carbon Dioxide 25 Anion Gap 8 BUN 8 D Creatinine 0.6 L D Creat Clearance w eGFR > 60 Random Glucose 97 Lactic Acid Calcium 8.7 Total Bilirubin 0.4 AST 22 D ALT 33 Alkaline Phosphatase 121 H Creatine Kinase 151 Creatine Kinase Index 1.7 CK-MB (CK-2) 2.626 Troponin I < 0.02 Total Protein 7.6 Albumin 4.2 Lipase 78 01/01/17 19:00 WBC RBC Hgb Hct MCV MCH MCHC RDW Plt Count MPV Neutrophils % Lymphocytes % Monocytes % Eosinophils % Basophils % PT with INR INR Sodium Potassium Chloride Carbon Dioxide Anion Gap BUN Creatinine Creat Clearance w eGFR Random Glucose Lactic Acid 1.1 Calcium Total Bilirubin AST ALT Alkaline Phosphatase Creatine Kinase Creatine Kinase Index CK-MB (CK-2) Troponin I Total Protein Albumin Lipase ASSESSMENT AND PLAN:
--- NOTE | 2017-01-02 10:16 | HP ---
CHIEF COMPLAINT:Abdominal pain PCP: Dr. Palacio: HISTORY OF PRESENT ILLNESS: 21 year old male resident from [facility] with a significant past medical history of cerebral palsy, GERD, Depression, Seizures, constipation who presents to the emergency department with diffuse abdominal pain. Pain is throughout entire abdomen but more in epigastric region. He describes 5/10 pressure-like pain worsened by movement and no alleviating factors. He endorses constipation for past few days and has no passed flatus for 24hrs. Patient was seen on 12/28/2016 for epigastric pain and was discharged with negative workup. He denies CP,DOBSON, SOB, palpitation, fever, chills, N/V. ER course was notable for: (1)CT abdomen shows significant impaction with psuedoobstuction. (2)Gallbladder US shows cholelithiasis but no acute cholecystitis and fatty liver. (3)CBC and BMP WNL Recent Travel: NO PAST MEDICAL HISTORY:cerebral palsy, GERD, Depression, Seizures, constipation PAST SURGICAL HISTORY: implanted baclofen pump Social History: Smoking:never Alcohol:never Drugs: no Family History: Allergies No Known Allergies Allergy (Verified 01/01/17 17:21) HOME MEDICATIONS: Home Medications Medication Instructions Recorded Acetaminophen 650 mg PO Q4H PRN 06/07/16 Albuterol Sulfate Liquid [Ventolin 2 mg PO TID 06/07/16 *Liquid*] Ascorbic Acid [C-1000] 1,000 mg PO DAILY 06/07/16 Baclofen 30 mg PO Q8H PRN 06/07/16 Bupropion HCl [Wellbutrin -] 200 mg PO HS 06/07/16 Fluticasone Propionate [Flovent 50 mcg IH BID 06/07/16 Diskus] Glycolic Acid 100 ml PO TID 06/07/16 Grape Seed Extract [Grape Seed] 25 mg PO DAILY 06/07/16 Loperamide HCl [Loperamide] 2 mg PO Q4H PRN 06/07/16 Melatonin 3 mg PO HS 06/07/16 Multivitamin [Poly-Vitamin] 1 each PO DAILY 06/07/16 Quetiapine Fumarate [Quetiapine 300 mg PO TID 06/07/16 Fumarate ER] Risperidone 2 mg PO TID 06/07/16 Sennosides [Senna] 17.2 mg PO BID 06/07/16 Simethicone Liquid [Mylicon] 40 mg PO BID 06/07/16 Cephalexin [Keflex] 500 mg PO Q6H #28 capsule 12/28/16 Sulfamethoxazole/Trimethoprim 1 tab PO BID #14 tablet 12/28/16 [Bactrim Ds -] REVIEW OF SYSTEMS CONSTITUTIONAL: Absent: fever, chills, diaphoresis, generalized weakness, malaise, loss of appetite, weight change HEENT: Absent: rhinorrhea, nasal congestion, throat pain, throat swelling, difficulty swallowing, mouth swelling, ear pain, eye pain, visual changes CARDIOVASCULAR: Absent: chest pain, syncope, palpitations, irregular heart rate, lightheadedness , peripheral edema RESPIRATORY: Absent: cough, shortness of breath, dyspnea with exertion, orthopnea, wheezing, stridor, hemoptysis GASTROINTESTINAL:abdominal pain, abdominal distension , constipation Absent: , nausea, vomiting, diarrhea, melena, hematochezia GENITOURINARY: Absent: dysuria, frequency, urgency, hesitancy, hematuria, flank pain, genital pain MUSCULOSKELETAL: Absent: myalgia, arthralgia, joint swelling, back pain, neck pain SKIN: Absent: rash, itching, pallor HEMATOLOGIC/IMMUNOLOGIC: Absent: easy bleeding, easy bruising, lymphadenopathy, frequent infections ENDOCRINE: Absent: unexplained weight gain, unexplained weight loss, heat intolerance, cold intolerance NEUROLOGIC: Absent: headache, focal weakness or paresthesias, dizziness, unsteady gait, seizure, mental status changes, bladder or bowel incontinence PSYCHIATRIC: Absent: anxiety, depression, suicidal or homicidal ideation, hallucinations. PHYSICAL EXAMINATION GENERAL:AAOx3, Mild distress HEAD: NC/AT EYES: PERLLA,EOMI, sclera anicteric, conjunctiva clear. No lid lag. EARS, NOSE, THROAT: Moist mucous membranes. NECK: supple, no lymphadenopathy, JVD, or masses. LUNGS: CTAB. No wheezes, and no crackles. No accessory muscle use. HEART: RRR, normal S1 and S2 without M/G/R ABDOMEN: Soft, mild diffuse tenderness, (+) distended, normoactive bowel sounds , no guarding, no rebound, no masses. Baclofen pump on RLQ MUSCULOSKELETAL: B/L upper and lower ext. spasticity UPPER EXTREMITIES: 2+ pulses, warm, well-perfused. No cyanosis. No clubbing. No peripheral edema. LOWER EXTREMITIES: 2+ pulses, warm, well-perfused. No calf tenderness. No peripheral edema. NEUROLOGICAL: B/L planter and bicep reflex absent PSYCHIATRIC: Cooperative. Good eye contact. Appropriate mood and affect. SKIN: Warm, dry, normal turgor, no rashes or lesions noted, normal capillary refill. Laboratory Tests 01/01/17 01/01/17 01/01/17 19:00 19:00 19:00 WBC 4.6 RBC 4.95 Hgb 14.4 Hct 43.1 MCV 87.2 MCH 29.1 MCHC 33.4 RDW 13.6 Plt Count 215 MPV 8.1 Neutrophils % 57.0 Lymphocytes % 29.5 Monocytes % 10.1 Eosinophils % 2.9 Basophils % 0.5 PT with INR 11.60 INR 1.03 Sodium 138 Potassium 4.3 Chloride 105 Carbon Dioxide 25 Anion Gap 8 BUN 8 D Creatinine 0.6 L D Creat Clearance w eGFR > 60 Random Glucose 97 Lactic Acid Calcium 8.7 Total Bilirubin 0.4 AST 22 D ALT 33 Alkaline Phosphatase 121 H Creatine Kinase 151 Creatine Kinase Index 1.7 CK-MB (CK-2) 2.626 Troponin I < 0.02 Total Protein 7.6 Albumin 4.2 Lipase 78 01/01/17 19:00 WBC RBC Hgb Hct MCV MCH MCHC RDW Plt Count MPV Neutrophils % Lymphocytes % Monocytes % Eosinophils % Basophils % PT with INR INR Sodium Potassium Chloride Carbon Dioxide Anion Gap BUN Creatinine Creat Clearance w eGFR Random Glucose Lactic Acid 1.1 Calcium Total Bilirubin AST ALT Alkaline Phosphatase Creatine Kinase Creatine Kinase Index CK-MB (CK-2) Troponin I Total Protein Albumin Lipase IMAGING: * CT abdomen and pelvis without contrast. Impression: 1. Moderate volume of stool within the rectosigmoid colon. Disimpaction is recommended. 2. Prominent diffuse colonic distention without transition point raises the possibility of pseudoobstruction/decreased parasympathetic activity. Please correlate clinically for underlying electrolyte abnormalities, correlate with patient's medications and other risk factors. 3. Cholelithiasis with gallbladder wall thickening and no CT evidence of acute cholecystitis. Please correlate clinically. Gallbladder wall thickening is nonspecific and may be secondary to chronic cholecystitis. Reported By: Darling Ren MD 01/01/17 7616 * US/GALLBLADDER US IMPRESSION: 1. Cholelithiasis with no sonographic evidence of acute cholecystitis. 2. Hepatomegaly and diffuse fatty infiltration of the liver. Limited study as described above. Reported By: Mario Carlson MD 01/02 0804 ASSESSMENT/PLAN: 21 year old male resident from [facility] with a significant past medical history of cerebral palsy, GERD, Depression, Seizures, constipation who presents to the emergency department with diffuse abdominal pain, placed on observation. Problem List - Problem (1) Fecal impaction Assessment/Plan: * s/p manual disimpaction * Will complete Go-Lytely * Placed on observation for resolution of abdominal pain * Pain improved with disimpaction * NPO for now (2) Abdominal pain in male Assessment/Plan: * most likely due to severe constipation and pseudo-obstruction. (3) Constipation by delayed colonic transit (4) Pseudo-obstruction of colon (5) Bipolar 1 disorder Assessment/Plan: * Quetiapine Fumarate [Quetiapine Fumarate ER] 300 mg PO TID HELD (6) Cerebral palsy (7) Depression (8) GERD (gastroesophageal reflux disease) Assessment/Plan: * Continue PPI Visit type - Emergency Visit Emergency Visit: Yes ED Registration Date: 01/02/17 Care time: The patient presented to the Emergency Department on the above date and was hospitalized for further evaluation of their emergent condition. - New Patient This patient is new to me today: Yes Date on this admission: 01/02/17 - Critical Care Critical Care patient: No
[2017-01-02 17:20] VITALS: BMI 29.7
[2017-01-02] MEDS: HEPARIN NA (PORCINE) 5,000 UNITS/ML 1ML VIAL SQ SCH (18:22)
[2017-01-02] MEDS ORDERED: PT OWN MED DRAWER 7, Y5N ONE (20:46)
[2017-01-02] MEDS: SIMETHICONE 40 MG/0.6 ML BOTTLE PO SCH (21:46)
[2017-01-03] MEDS: HEPARIN NA (PORCINE) 5,000 UNITS/ML 1ML VIAL SQ SCH ×3 (01:18→18:29)
[2017-01-03 08:51] LABS: MCH 29.7 pg (25.7-33.7); MCHC 34.5 g/dl (32.0-35.9); PLATELET COUNT 245 K/MM3 (134-434); RDW 13.8 % (11.9-15.9); WHITE BLOOD COUNT 6.3 K/mm3 (4.0-10.0)
[2017-01-03 09:22] LABS: ANION GAP 13 (8-16); CALCIUM 8.6 mg/dL (8.5-10.1); CO2 22 mmol/L (21-32); CREATININE 0.6 mg/dL (0.7-1.3); GLUCOSE,RANDOM 77 mg/dL (74-106); MAGNESIUM 2.2 mg/dL (1.8-2.4); PHOSPHOROUS 3.1 mg/dL (2.5-4.9)
[2017-01-03] MEDS: SIMETHICONE 40 MG/0.6 ML BOTTLE PO SCH ×2 (10:53→21:51)
[2017-01-03] MEDS ORDERED: risperiDONE 2 MG TABLET PO STA (11:28)
[2017-01-03] MEDS ORDERED: SENNOSIDES 8.6MG TABLET (FP) PO SCH (11:30)
[2017-01-03] MEDS ORDERED: SODIUM CHLORIDE 1,000 ML IV STA ×2 (11:55→16:36)
--- NOTE | 2017-01-03 11:57 | PN ---
Physical Exam: SUBJECTIVE: Patient seen and examined at bedside. Speech is slow but responsive. Feels hungry. Pain in abdomen is better. OBJECTIVE: Vital Signs Period Temp Pulse Resp BP Sys/Davis Pulse Ox Last 24 Hr 97.5 F-99.4 F 79-106 18-20 105-137/46-88 95-97 GENERAL: The patient is awake, alert, and fully oriented, in no acute distress. LUNGS: Breath sounds equal, clear to auscultation bilaterally, no wheezes, no crackles, no accessory muscle use. HEART: Tachycardic; S1, S2 without murmur, rub or gallop. ABDOMEN: Firm, tympanitic, distended; no guarding, no rebound EXTREMITIES: 2+ pulses, warm, well-perfused, no edema. NEUROLOGICAL: Cranial nerves II through XII grossly intact. Normal speech, gait not observed. Laboratory Results - last 24 hr 01/02/17 01/03/17 01/03/17 11:12 07:30 07:30 WBC 6.3 D RBC 4.58 Hgb 13.6 Hct 39.4 MCV 86.0 MCH 29.7 MCHC 34.5 RDW 13.8 Plt Count 245 MPV 8.0 Sodium 140 Potassium 4.0 Chloride 105 Carbon Dioxide 22 Anion Gap 13 BUN 6 L D Creatinine 0.6 L Random Glucose 77 D Calcium 8.6 Phosphorus 3.1 Magnesium 2.2 Blood Type O NEGATIVE Antibody Screen Negative Active Medications Generic Name Dose Route Start Last Admin Trade Name Freq PRN Reason Stop Dose Admin Albuterol Sulfate 4 mg 01/03/17 14:00 Ventolin Oral Solution - PO TID SINA Bupropion HCl 100 mg 01/03/17 22:00 Wellbutrin - PO HS SINA Heparin Sodium (Porcine) 5,000 unit 01/02/17 18:00 01/03/17 10:53 Heparin - SQ 5,000 unit Q8H-IV SINA Administration Sodium Chloride 1,000 mls @ 1,000 mls/hr 01/03/17 11:55 Normal Saline - IV 01/03/17 12:54 ASDIR STA Sodium Chloride 1,000 mls @ 125 mls/hr 01/03/17 12:00 Normal Saline - IV ASDIR SINA Quetiapine Fumarate 300 mg 01/03/17 11:28 Seroquel Xr - PO 01/03/17 11:29 TID STA Risperidone 2 mg 01/03/17 11:28 Risperdal - PO 01/03/17 11:29 TID STA Senna tab 01/03/17 11:30 Senna - PO BID SINA Simethicone 40 mg 01/02/17 22:00 01/03/17 10:53 Mylicon Liquid - PO 40 mg BID SINA Administration ASSESSMENT/PLAN 21 year-old male with a PMH significant for mild intellectual disability, depression with psychotic features, bipolar disorder, 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 Admitted for constipation secondary to pseudoobstruction. Now with fever and tachycardia. Constipation secondary to pseudoobstruction of colon --01/01 CTAP: moderate volume of stool in rectosigmoid colon; prominent diffuse colonic distension without transition point possible pseudoobstruction/ decreased parasympathetic activity --s/p disimpaction in ED --s/p Go Lytely, has had 3 large BMs today --s/p rectal tube insertion today by GI with significant decompression; KUB pending --Miralax daily, senna 2 tabs evening, mineral oil enemas every other day; simethicone Cholelithiasis Thickening of gallbladder wall --CTAP and US shows cholelithiasis without evidence of acute cholecystitis, GB wall thickening --mild elevation of alk phos --possible chronic cholecystitis --f/u GGT Fever Tachycardia --tachycardic to 130s and fever to 101 this afternoon; no leukocytosis --will get KUB to see if free air --IV fluids --no antibiotics for now Depression with psychotic features Bipolar disorder Seizure disorder --continue Risperdal, Wellbutrin, Seroquel F/E/N Fluids: NS @ 125mL/hr Electrolytes: replete as indicated Nutrition: NPO DVT prophylaxis: sub heparin Dispo: continues to require inpatient care. Visit type - Emergency Visit Emergency Visit: Yes ED Registration Date: 01/02/17 Care time: The patient presented to the Emergency Department on the above date and was hospitalized for further evaluation of their emergent condition. - New Patient This patient is new to me today: Yes Date on this admission: 01/03/17 - Critical Care Critical Care patient: No
[2017-01-03 14:11] LABS: TROPONIN I < 0.02 ng/ml (0.00-0.05)
[2017-01-03] MEDS: ALBUTEROL SULFATE PO SCH ×2 (14:32→21:50)
--- NOTE | 2017-01-03 15:19 | CON.GI ---
Consult Consult Specialty:: GI: Dr. Rdz for Dr. Stuart who will resume coverage Referred by:: Hospitalist service Reason for Consultation:: abdominal distention and ? thickened GB wall - History of Present Illness Chief Complaint: Patient awake but somewhat lethargic, currently a poor historian History of Present Illness: 21M w/ cerebral palsy history of chronic fecal retention (with prolonged hospitalization in 03/23 and again 04/24 during which times he required manual disimpaction and bowel lavage. Currently admitted from [facility] through [facility] ER for abdominal pain and constipation. Prior to that he was seen at the [facility] ER and discharged back to the [facility]. Work-up included a CT scan of the abdomen and pelvis that revealed fecal retention at the level of the rectosigmoid junction along with a diffusely distended colon. gallstones and thickened GB wall were seen as well. Golyeley lavage was initiated in the ER and overnight soft BM's were noted. He currently denies any abdominal pain. There has been no vomiting. 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: Seizure, Other (MR) Gastrointestinal: Yes: Constipation (with fecal impactions), GERD, Other (Stool impactions) Psych: Yes: Depression Musculoskeletal: Yes: Other (scoliosis) Additional Medical History: cerebral palsy, seizures, - Past Surgical History Additional Surgical History: Baclofen pump placement in the RLQ - Alcohol/Substance Use Hx Alcohol Use: No - Smoking History Smoking history: Never smoked Have you smoked in the past 12 months: No - Social History Usual Living Arrangement: Assisted Living ADL: Family Assistance Place of : [facility] History of Recent Travel: No Home Medications - Allergies Allergies/Adverse Reactions: Allergies Allergy/AdvReac Type Severity Reaction Status Date / Time No Known Allergies Allergy Verified 01/01/17 17:21 - Home Medications Home Medications: Ambulatory Orders Acetaminophen 650 mg PO Q4H PRN 06/07/16 Albuterol Sulfate Liquid [Ventolin *Liquid*] 4 mg PO TID 06/07/16 Ascorbic Acid [C-1000] 1,000 mg PO DAILY 06/07/16 Baclofen 30 mg PO Q8H PRN 06/07/16 Bupropion HCl [Wellbutrin -] 100 mg PO HS 06/07/16 Fluticasone Propionate [Flovent Diskus] 50 mcg IH BID 06/07/16 Glycolic Acid 100 ml PO TID 06/07/16 Grape Seed Extract [Grape Seed] 100 mg PO DAILY 06/07/16 Loperamide HCl [Loperamide] 2 mg PO Q4H PRN 06/07/16 Melatonin 3 mg PO HS 06/07/16 Multivitamin [Poly-Vitamin] 1 each PO DAILY 06/07/16 Quetiapine Fumarate [Quetiapine Fumarate ER] 300 mg PO TID 06/07/16 Risperidone 2 mg PO TID 06/07/16 Sennosides [Senna] 17.2 mg PO BID 06/07/16 Simethicone Liquid [Mylicon] 40 mg PO BID 06/07/16 Cephalexin [Keflex] 500 mg PO Q6H #28 capsule 12/28/16 Sulfamethoxazole/Trimethoprim [Bactrim Ds -] 1 tab PO BID #14 tablet 12/28/16 Carbamide Peroxide [Debrox] 5 drop AU BID 01/03/17 Zinc Sulfate 220 mg PO DAILY 01/03/17 Family Disease History - Family Disease History Other Family History: Non-Contribuatory Review of Systems - Review of Systems Cardiovascular: denies: Chest Pain Respiratory: denies: Cough, SOB Gastrointestinal: reports: Abdominal Pain, Bloating, Constipation. denies: Diarrhea, Rectal Bleeding, Vomiting, Vomiting Blood Physical Exam-GI Vital Signs: Vital Signs Temperature 101.3 F 01/03/17 1500 Pulse Rate 130 H 01/03/17 1500 Respiratory Rate 18 01/03/17 1500 Blood Pressure 112/47 01/03/17 1500 O2 Sat by Pulse Oximetry (%) 94% 01/03/17 1500 Constitutional: Yes: Calm Eyes: No: Sclera Icterus Cardiovascular: Yes: Regular Rate and Rhythm, Tachycardia. No: Murmur Respiratory: Yes: CTA Bilaterally Gastrointestinal Inspection: Yes: Distention, Scars (RLQ) ...Auscultate: Yes: Normoactive Bowel Sounds ...Palpate: Yes: Soft, Other (Negative zabala's sign). No: Tenderness ...Percussion: Yes: Tympanitic ...Rectal Exam: Yes: Guaiac Negative (Light brown stool with more copious stool felt more proximally in the rectum. rectal tube inserted and lavaged out with 500cc water. liquid stool and copious air expelled with improvement of abdominal distention) Edema: No (contracted LE b/l) Neurological: Yes: Lethargy Labs: CBC, BMP 01/03/17 07:30 01/03/17 07:30 INR, PTT INR 1.03 (0.82-1.09) 01/01/17 19:00 Hepatic Panel Total Bilirubin 0.4 mg/dL (0.2-1.0) 01/01/17 19:00 AST 22 U/L (15-37) D 01/01/17 19:00 ALT 33 U/L (12-78) 01/01/17 19:00 Alkaline Phosphatase 121 U/L (45-117) H 01/01/17 19:00 Albumin 4.2 g/dl (3.4-5.0) 01/01/17 19:00 Imaging - Results Cat Scan: Report Reviewed, Image Reviewed Ultrasound: Report Reviewed (contracted gallbladder with stones) Problem List - Problems (1) Pseudo-obstruction of colon Assessment/Plan: Likely multifactorial in nature including lack of mobility and medication regimen Improved after bowel lavage and rectal tube left in overnight Will need continued bowel regimen as an outpatient: senna MiraLAX 17g daily, senna 2 tablets in evening and mineral oil enemas every other day. Code(s): K59.8 - OTHER SPECIFIED FUNCTIONAL INTESTINAL DISORDERS (2) Thickening of wall of gallbladder Assessment/Plan: Negative zabala's sign with mild elevation of ALP. I do not think Daniel has acute cholecystitis and this finding was seen on previous imaging studies. ? chronic cholecystitis. Can obtain surgical opinion Can check GGT given elevated ALP Code(s): K82.8 - OTHER SPECIFIED DISEASES OF GALLBLADDER (3) Fever Assessment/Plan: On rectal temp taken on exam. Daniel's nurse let SANDWICH MACHINE OPERATOR Julien know about this Code(s): R50.9 - FEVER, UNSPECIFIED
[2017-01-03] MEDS: POLYETHYLENE GLYCOL 3350 119 GM BTL PO SCH (17:59)
[2017-01-03] MEDS ORDERED: PIPERACILLIN/TAZOB 3.375 GM 50 ML IVPB SCH ×2 (18:00)
[2017-01-03] MEDS ORDERED: PIPERACIL/TAZOB 3.375 GM 3.375 GM/50 ML PREMIX IVPB SCH (18:00)
[2017-01-03] MEDS: SODIUM CHLORIDE 1,000 ML IV SCH ×2 (18:29→22:33)
[2017-01-03] MEDS ORDERED: PT OWN MED DRAWER 7, Y5N ONE (21:05)
[2017-01-03] MEDS: buPROPion HCL 100 MG TABLET PO SCH (21:50)
[2017-01-03] MEDS: SENNOSIDES 8.6MG TABLET (FP) PO SCH (21:50)
[2017-01-04] MEDS: HEPARIN NA (PORCINE) 5,000 UNITS/ML 1ML VIAL SQ SCH ×3 (02:45→17:29)
[2017-01-04] MEDS: ALBUTEROL SULFATE PO SCH ×3 (06:18→21:20)
[2017-01-04] MEDS ORDERED: PT OWN MED DRAWER 7, Y5N ONE ×2 (06:42→21:10)
[2017-01-04 08:16] LABS: BASOPHIL 0.6 % (0-2.0); MCH 29.5 pg (25.7-33.7); MCHC 34.1 g/dl (32.0-35.9); MEAN CELL VOLUME 86.5 fl (80-96); MEAN PLT VOLUME 7.6 fl (7.5-11.1); NEUTROPHILS 63.7 % (42.8-82.8); PLATELET COUNT 191 K/MM3 (134-434); RDW 13.5 % (11.9-15.9); WHITE BLOOD COUNT 5.3 K/mm3 (4.0-10.0)
[2017-01-04 08:44] LABS: ANION GAP 11 (8-16); CALCIUM 8.3 mg/dL (8.5-10.1); CO2 20 mmol/L (21-32); CREATININE 0.5 mg/dL (0.7-1.3); GLUCOSE,RANDOM 65 mg/dL (74-106); PHOSPHOROUS 2.6 mg/dL (2.5-4.9)
[2017-01-04] MEDS: POLYETHYLENE GLYCOL 3350 119 GM BTL PO SCH (10:30)
[2017-01-04] MEDS: SIMETHICONE 40 MG/0.6 ML BOTTLE PO SCH ×2 (10:32→21:19)
[2017-01-04] MEDS ORDERED: MINERAL OIL ENEMA 133 ML ENEMA PR SCH (14:00)
--- NOTE | 2017-01-04 14:55 | PN ---
Physical Exam: SUBJECTIVE: Patient seen and examined. He tolerated his diet today, no vomiting he feels well. No further fevers OBJECTIVE: Vital Signs Period Temp Pulse Resp BP Sys/Davis Pulse Ox Last 24 Hr 97.4 F-101 F 98-130 18-20 100-123/47-55 97 PE Neuro: alert, awake, oriented to person, place, home Pulm: CT anteriorly CV: s1 s2 rrr no mrg Abd: RLQ scar healed, abd soft, + bs, distention improved Ext: contracted @ b/l wrists, b/l ankles externally rotated Laboratory Results - last 24 hr 01/04/17 01/04/17 07:30 07:30 WBC 5.3 RBC 4.30 Hgb 12.7 Hct 37.2 MCV 86.5 MCH 29.5 MCHC 34.1 RDW 13.5 Plt Count 191 D MPV 7.6 Neutrophils % 63.7 Lymphocytes % 18.7 D Monocytes % 16.0 H Eosinophils % 1.0 Basophils % 0.6 Sodium 138 Potassium 3.6 Chloride 107 Carbon Dioxide 20 L Anion Gap 11 BUN 7 Creatinine 0.5 L Random Glucose 65 L Calcium 8.3 L Phosphorus 2.6 GGT 25 Active Medications Generic Name Dose Route Start Last Admin Trade Name Freq PRN Reason Stop Dose Admin Albuterol Sulfate 4 mg 01/03/17 14:00 01/04/17 13:34 Ventolin Oral Solution - PO 4 mg TID SINA Administration Bupropion HCl 100 mg 01/03/17 22:00 01/03/17 21:50 Wellbutrin - PO 100 mg HS SINA Administration Heparin Sodium (Porcine) 5,000 unit 01/02/17 18:00 01/04/17 10:30 Heparin - SQ 5,000 unit Q8H-IV SINA Administration Sodium Chloride 1,000 mls @ 125 mls/hr 01/03/17 12:00 01/03/17 22:33 Normal Saline - IV 125 mls/hr ASDIR SINA Administration Mineral Oil 133 ml 01/04/17 14:00 01/04/17 13:34 Fleet Mineral Oil Rectal Enema - NV 133 ml Q48H SINA Administration Polyethylene Glycol 17 gm 01/03/17 18:00 01/04/17 10:30 Miralax (For Daily Use) - PO 17 gm DAILY SINA Administration Senna 2 tab 01/03/17 22:00 01/03/17 21:50 Senna - PO 2 tab HS SINA Administration Simethicone 40 mg 01/02/17 22:00 01/04/17 10:32 Mylicon Liquid - PO 40 mg BID SINA Administration Imaging: -01/01 CTAP: moderate volume of stool in rectosigmoid colon; prominent diffuse colonic distension without transition point possible pseudoobstruction/ decreased parasympathetic activity Assessment: 21 year-old male with a PMH significant for mild intellectual disability, depression with psychotic features, bipolar disorder, 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 Admitted for constipation secondary to pseudoobstruction, fever, tachycardia. 1. Constipation secondary to pseudoobstruction of colon - s/p disimpaction and bowel regimen with subsequent bowel movements - Advance diet today, well tolerated - KUB noted, no free air, rectal tube removed by GI - Miralax daily, senna 2 tabs evening, mineral oil enemas every other day; simethicone 2. Cholelithiasis/ Thickening of gallbladder wall - CTAP and US shows cholelithiasis without evidence of acute cholecystitis, GB wall thickening - GGT, LFT's wnl 3. Fever/ Tachycardia - Afebrile since yesterday afternoon spoke - Stop abx, fluids - KUB negative for free air 4. Depression with psychotic features/Bipolar disorder/ Seizure disorder - Continue Risperdal, Wellbutrin, Seroquel 5. DVT prophylaxis: sub heparin Dispo - DC home tomorrow pending 24 afebrile Visit type - Emergency Visit Emergency Visit: Yes ED Registration Date: 01/02/17 Care time: The patient presented to the Emergency Department on the above date and was hospitalized for further evaluation of their emergent condition. - New Patient This patient is new to me today: Yes Date on this admission: 01/04/17 - Critical Care Critical Care patient: No
--- NOTE | 2017-01-04 16:17 | PN ---
GI Progress Note Subjective: large BM reported by nursing today Daniel denies any abdominal pain currently and is more awake Tolerated PO - Objective Vital Signs: Vital Signs Temperature 98.3 F 01/04/17 15:30 Pulse Rate 100 H 01/04/17 15:30 Respiratory Rate 20 01/04/17 15:30 Blood Pressure 130/59 01/04/17 15:30 O2 Sat by Pulse Oximetry (%) 97 01/03/17 15:00 Constitutional: Calm Eyes: No: Sclera Icterus Cardiovascular: Yes: Tachycardia Respiratory: Yes: Diminished (at bases, poor insp. effort) Gastrointestinal Inspection: Yes: Distention (softly protuberant) ...Auscultate: Yes: Normoactive Bowel Sounds ...Palpate: No: Tenderness Edema: No Labs: CBC, BMP 01/04/17 07:30 01/04/17 07:30 INR, PTT INR 1.03 (0.82-1.09) 01/01/17 19:00 Problem List - Problems (1) Pseudo-obstruction of colon Assessment/Plan: Clinically improved Advised nurse to D/C rectal tube Continue bowel regimenL MiraLAX 17g in AM, senna 2 tabs nightly, mineral oil enema every other day Check TSH (ordered) Dr. Stuart resumes coverage 01/05 Code(s): K59.8 - OTHER SPECIFIED FUNCTIONAL INTESTINAL DISORDERS (2) Thickening of wall of gallbladder Code(s): K82.8 - OTHER SPECIFIED DISEASES OF GALLBLADDER (3) Fever Code(s): R50.9 - FEVER, UNSPECIFIED
[2017-01-04] MEDS ORDERED: risperiDONE 2 MG TABLET PO SCH (16:36)
[2017-01-04] MEDS ORDERED: QUEtiapine FUMARATE 300 MG TABLET PO SCH ×2 (16:45→17:15)
[2017-01-04] MEDS: buPROPion HCL 100 MG TABLET PO SCH (21:17)
[2017-01-04] MEDS: risperiDONE 1 MG TABLET (FP) PO SCH (21:18)
[2017-01-04] MEDS: QUEtiapine FUMARATE 100 MG TABLET (FP) PO SCH (21:18)
[2017-01-04] MEDS: SENNOSIDES 8.6MG TABLET (FP) PO SCH (21:18)
[2017-01-04 23:14] LABS: URINE APPEARANCE CLEAR; URINE BILIRUBIN NEGATIVE (NEGATIVE); URINE BLOOD NEGATIVE (NEGATIVE); URINE COLOR LTYELLOW; URINE GLUCOSE (UA) NEGATIVE (NEGATIVE); URINE KETONE 2+ (NEGATIVE); URINE NITRITE NEGATIVE (NEGATIVE); URINE PROTEIN NEGATIVE (NEGATIVE); URINE UROBILINOGEN NEGATIVE mg/dL (0.2-1.0)
[2017-01-05] MEDS: HEPARIN NA (PORCINE) 5,000 UNITS/ML 1ML VIAL SQ SCH ×2 (02:34→10:36)
[2017-01-05] MEDS ORDERED: PT OWN MED DRAWER 7, Y5N ONE ×2 (05:30→10:34)
[2017-01-05] MEDS: risperiDONE 1 MG TABLET (FP) PO SCH ×2 (06:07→14:18)
[2017-01-05] MEDS: ALBUTEROL SULFATE PO SCH ×2 (06:08→14:19)
[2017-01-05] MEDS: QUEtiapine FUMARATE 100 MG TABLET (FP) PO SCH ×2 (06:08→14:19)
--- NOTE | 2017-01-05 08:46 | PN ---
Physical Exam: SUBJECTIVE: Patient seen and examined at the bedside. Stating he is hungry, denies pain. OBJECTIVE: Abdomen soft, non distended, hypoactive bowel sounds Remains afebrile, +tacycardia 101 awaiting repeat labs Vital Signs Period Temp Pulse Resp BP Sys/Davis Pulse Ox Last 24 Hr 97.6 F-98.8 F 98-104 20-20 104-130/45-74 97 GENERAL: The patient is awake, alert, and hx of MR HEAD: Normal with no signs of trauma. EYES: PERRL, extraocular movements intact, sclera anicteric, conjunctiva clear. No ptosis. ENT: Ears normal, nares patent, oropharynx clear without exudates, moist mucous membranes. NECK: Trachea midline, full range of motion, supple. LUNGS: Breath sounds equal, clear to auscultation bilaterally, no wheezes, no crackles, no accessory muscle use. HEART: Regular rate and rhythm, S1, S2 without murmur, rub or gallop. ABDOMEN: Soft, nontender, nondistended, hypoactive bowel sounds, no guarding, no rebound, no hepatosplenomegaly, no masses. EXTREMITIES: lower ext feet extend outward, wheel chair bound PSYCH: Normal mood, normal affect. SKIN: Warm, dry, normal turgor, no rashes or lesions noted Laboratory Results - last 24 hr 01/04/17 01/04/17 01/04/17 07:30 16:00 23:00 Sodium 138 Potassium 3.6 Chloride 107 Carbon Dioxide 20 L Anion Gap 11 BUN 7 Creatinine 0.5 L Random Glucose 65 L Calcium 8.3 L Phosphorus 2.6 GGT 25 TSH 0.78 Urine Color Ltyellow Urine Appearance Clear Urine pH 6.0 D Urine Protein Negative Urine Glucose (UA) Negative Urine Ketones 2+ H Urine Blood Negative Urine Nitrite Negative Urine Bilirubin Negative Urine Urobilinogen Negative Active Medications Generic Name Dose Route Start Last Admin Trade Name Freq PRN Reason Stop Dose Admin Albuterol Sulfate 4 mg 01/03/17 14:00 01/05/17 06:08 Ventolin Oral Solution - PO 4 mg TID SINA Administration Bupropion HCl 100 mg 01/03/17 22:00 01/04/17 21:17 Wellbutrin - PO 100 mg HS [facility]INA Administration Heparin Sodium (Porcine) 5,000 unit 01/02/17 18:00 01/05/17 02:34 Heparin - SQ 5,000 unit Q8H-IV [facility] Administration Mineral Oil 133 ml 01/04/17 14:00 01/04/17 13:34 Fleet Mineral Oil Rectal Enema - MA 133 ml Q48H [facility]INA Administration Polyethylene Glycol 17 gm 01/03/17 18:00 01/04/17 10:30 Miralax (For Daily Use) - PO 17 gm DAILY [facility] Administration Quetiapine Fumarate 300 mg 01/04/17 17:15 01/05/17 06:08 Seroquel - PO 300 mg TID [facility] Administration Risperidone 2 mg 01/04/17 17:11 01/05/17 06:07 Risperdal - PO 2 mg TID [facility]INA Administration Senna 2 tab 01/03/17 22:00 01/04/17 21:18 Senna - PO 2 tab HS [facility]INA Administration Simethicone 40 mg 01/02/17 22:00 01/04/17 21:19 Mylicon Liquid - PO 40 mg BID SINA Administration ASSESSMENT/PLAN:
[2017-01-05 09:33] LABS: BASOPHIL 0.5 % (0-2.0); EOSINOPHIL 4.2 % (0-4.5); MCH 29.5 pg (25.7-33.7); MCHC 34.6 g/dl (32.0-35.9); MEAN CELL VOLUME 85.4 fl (80-96); MEAN PLT VOLUME 7.3 fl (7.5-11.1); NEUTROPHILS 50.3 % (42.8-82.8); PLATELET COUNT 180 K/MM3 (134-434); RDW 13.6 % (11.9-15.9); WHITE BLOOD COUNT 3.4 K/mm3 (4.0-10.0)
[2017-01-05 10:07] LABS: ALBUMIN 3.5 g/dl (3.4-5.0); ALK PHOS 98 U/L (45-117); ANION GAP 9 (8-16); BILIRUBIN,TOTAL 0.4 mg/dL (0.2-1.0); CALCIUM 8.7 mg/dL (8.5-10.1); CO2 24 mmol/L (21-32); CREATININE 0.4 mg/dL (0.7-1.3); GLUCOSE,RANDOM 113 mg/dL (74-106); SGOT/AST 11 U/L (15-37); SGPT/ALT 20 U/L (12-78); TOT PROT 6.4 g/dl (6.4-8.2)
[2017-01-05] MEDS: POLYETHYLENE GLYCOL 3350 119 GM BTL PO SCH (10:37)
--- NOTE | 2017-01-05 10:49 | PN ---
Progress Note, Physician History of Present Illness: No events. Comfortable. Pain free. Had a spontaneous BM, per nurse. Tolerating prescribed diet . - Current Medication List Current Medications: Active Medications Albuterol Sulfate (Ventolin Oral Solution -) 4 mg PO TID [facility] Last Admin: 01/05/17 06:08 Dose: 4 mg Bupropion HCl (Wellbutrin -) 100 mg PO HS [facility] Last Admin: 01/04/17 21:17 Dose: 100 mg Heparin Sodium (Porcine) (Heparin -) 5,000 unit SQ Q8H-IV [facility] Last Admin: 01/05/17 10:36 Dose: 5,000 unit Mineral Oil (Fleet Mineral Oil Rectal Enema -) 133 ml [place] Q48H [facility] Last Admin: 01/04/17 13:34 Dose: 133 ml Polyethylene Glycol (Miralax (For Daily Use) -) 17 gm PO DAILY [facility] Last Admin: 01/05/17 10:37 Dose: 17 gm Quetiapine Fumarate (Seroquel -) 300 mg PO TID [facility] Last Admin: 01/05/17 06:08 Dose: 300 mg Risperidone (Risperdal -) 2 mg PO TID [facility] Last Admin: 01/05/17 06:07 Dose: 2 mg Senna (Senna -) 2 tab PO HS [facility] Last Admin: 01/04/17 21:18 Dose: 2 tab Simethicone (Mylicon Liquid -) 40 mg PO BID [facility] Last Admin: 01/04/17 21:19 Dose: 40 mg - Objective Vital Signs: Vital Signs Temperature 97.6 F 01/05/17 06:00 Pulse Rate 98 H 01/05/17 06:00 Respiratory Rate 20 01/05/17 06:00 Blood Pressure 130/60 01/05/17 06:00 O2 Sat by Pulse Oximetry (%) 97 01/05/17 02:00 Constitutional: Yes: No Distress, Calm Gastrointestinal: Yes: Soft. No: Palpable Mass, Tenderness, Vomiting Neurological: Yes: Alert Labs: CBC, BMP 01/05/17 09:15 01/05/17 09:15 INR, PTT INR 1.03 (0.82-1.09) 01/01/17 19:00 Problem List - Problems (1) Colonic inertia Code(s): K59.9 - FUNCTIONAL INTESTINAL DISORDER, UNSPECIFIED (2) Constipation Code(s): K59.00 - CONSTIPATION, UNSPECIFIED Qualifiers: Constipation type: slow transit constipation Qualified Code(s): K59.01 - Slow transit constipation; K59.01 - Slow transit constipation Assessment/Plan multifatorial constipation Aggressive bowel regiment Miralax BID, or titare to a daily, or every other day BM Colase 100 qhs PRN Low fat diet
[2017-01-05 10:56] LABS: URINE LEUK ESTERASE Negative (NEGATIVE)
--- NOTE | 2017-01-05 11:21 | DS ---
Physical Exam: SUBJECTIVE: Patient seen and examined at the bedside. He appears comfortable at rest. OBJECTIVE: Remains afebrile, vitals stable, having bowel movements, tolerating diet Cleared by GI for discharge Call placed to Dr. Tyler, who accepts patient back to the facility Vital Signs Period Temp Pulse Resp BP Sys/Davis Pulse Ox Last 24 Hr 97.6 F-98.8 F 98-104 20-20 104-130/45-74 97 PHYSICAL EXAM GENERAL: The patient is awake, alert, and hx of MR HEAD: Normal with no signs of trauma. EYES: PERRL, extraocular movements intact, sclera anicteric, conjunctiva clear. No ptosis. ENT: Ears normal, nares patent, oropharynx clear without exudates, moist mucous membranes. NECK: Trachea midline, full range of motion, supple. LUNGS: Breath sounds equal, clear to auscultation bilaterally, no wheezes, no crackles, no accessory muscle use. HEART: Regular rate and rhythm, S1, S2 without murmur, rub or gallop. ABDOMEN: Soft, nontender, nondistended, +bowel sounds, no guarding, no rebound, no hepatosplenomegaly, no masses. EXTREMITIES: lower ext feet extend outward, wheel chair bound, contracted on all 4 extremities. PSYCH: Normal mood, normal affect. SKIN: Warm, dry, normal turgor, no rashes or lesions noted LABS Laboratory Results - last 24 hr 01/04/17 01/04/17 01/05/17 16:00 23:00 09:15 WBC 3.4 L D RBC 4.57 Hgb 13.5 Hct 39.0 MCV 85.4 MCH 29.5 MCHC 34.6 RDW 13.6 Plt Count 180 MPV 7.3 L Neutrophils % 50.3 D Lymphocytes % 30.8 D Monocytes % 14.2 H Eosinophils % 4.2 D Basophils % 0.5 Sodium Potassium Chloride Carbon Dioxide Anion Gap BUN Creatinine Creat Clearance w eGFR Random Glucose Calcium Total Bilirubin AST ALT Alkaline Phosphatase Total Protein Albumin TSH 0.78 Urine Color Ltyellow Urine Appearance Clear Urine pH 6.0 D Ur Specific [place] 1.020 Urine Protein Negative Urine Glucose (UA) Negative Urine Ketones 2+ H Urine Blood Negative Urine Nitrite Negative Urine Bilirubin Negative Urine Urobilinogen Negative Ur Leukocyte Esterase Negative 01/05/17 09:15 WBC RBC Hgb Hct MCV MCH MCHC RDW Plt Count MPV Neutrophils % Lymphocytes % Monocytes % Eosinophils % Basophils % Sodium 141 Potassium 3.5 Chloride 108 H Carbon Dioxide 24 Anion Gap 9 BUN 5 L D Creatinine 0.4 L Creat Clearance w eGFR > 60 Random Glucose 113 H D Calcium 8.7 Total Bilirubin 0.4 AST 11 L D ALT 20 D Alkaline Phosphatase 98 Total Protein 6.4 Albumin 3.5 TSH Urine Color Urine Appearance Urine pH Ur Specific [place] Urine Protein Urine Glucose (UA) Urine Ketones Urine Blood Urine Nitrite Urine Bilirubin Urine Urobilinogen Ur Leukocyte Esterase HOSPITAL COURSE: Date of Admission:01/02/17 Date of Discharge: 01/05/17 Assessment: Patient is a 21 year old male with a past medical history of mild intellectual disability, depression with psychotic features, bipolar disorder, cerebral palsy , 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 Admitted for constipation secondary to pseudoobstruction, fever and tachycardia. Imagin01/01/17 CTAP: moderate volume of stool in rectosigmoid colon; prominent diffuse colonic distension without transition point possible pseudo obstruction/ decreased parasympathetic activity Call placed to Dr. Tyler, who accepts patient back to the facility GI: Constipation secondary to Psudoobstrucion of colon, resolved Aggressive bowel regimen to continue at the facility As per GI recommendations, continue Miralax BID, titrate to daily, or every other day depending on BM Colase 100 @ bedtime Low fat diet Patient is tolerating feeds, no nausea or vomiting Vitals stable, labs stable Afebrile, abdomen soft, non distended Encourage adequate water intake Cleared by GI for discharge Cholelithiasis/ Thickening of gallbladder wall, likely chronic CTAP and US shows cholelithiasis without evidence of acute cholecystitis, GB wall thickening No pain on exam, LFT/liver enzymes within normal limits Low fat diet Fever, resolved Afebrile since 01/03/2017, no fevers since WBC stable, heart rate 90s Psyche: Depression with psychotic features/Bipolar disorder/ Seizure disorder Continue Risperdal, Wellbutrin, Seroquel, Baclophen pump Disposition: Discharge today back to [facility] as discussed with Dr. Tyler, who accepts patient back to the facility. full code = Minutes to complete discharge: 60 Discharge Summary Reason For Visit: PSEUDO OBSTRUCTION OF COLON Current Active Problems Abdominal pain in male (Acute) Colonic inertia (Acute) Constipation (Acute) Constipation by delayed colonic transit (Acute) Fever (Acute) Obstipation (Acute) Pseudo-obstruction of colon (Acute) Thickening of wall of gallbladder (Acute) Condition: Improved - Instructions Diet, Activity, Other Instructions: Mr. Bella Escalera were admitted on 01/02/2017 for constipation secondary to Psudoobstrucion of colon which is now resolved. Please continue: Aggressive bowel regimen to continue at the facility As per GI recommendations, continue Miralax BID, titrate to daily, or every other day depending on BM Colase 100 @ bedtime Low fat diet Encourage adequate water intake Please call me with any questions that you may have. Gracie Jimenez NP [facility] [phone] Referrals: Quentin Stuart MD [Staff Physician] - - Home Medications Comprehensive Discharge Medication List: Ambulatory Orders Acetaminophen 650 mg PO Q4H PRN 06/07/16 Albuterol Sulfate Liquid [Ventolin *Liquid*] 4 mg PO TID 06/07/16 Ascorbic Acid [C-1000] 1,000 mg PO DAILY 06/07/16 Baclofen 30 mg PO Q8H PRN 06/07/16 Bupropion HCl [Wellbutrin -] 100 mg PO HS 06/07/16 Fluticasone Propionate [Flovent Diskus] 50 mcg IH BID 06/07/16 Glycolic Acid 100 ml PO TID 06/07/16 Grape Seed Extract [Grape Seed] 100 mg PO DAILY 06/07/16 Loperamide HCl [Loperamide] 2 mg PO Q4H PRN 06/07/16 Melatonin 3 mg PO HS 06/07/16 Multivitamin [Poly-Vitamin] 1 each PO DAILY 06/07/16 Quetiapine Fumarate [Quetiapine Fumarate ER] 300 mg PO TID 06/07/16 Risperidone 2 mg PO TID 06/07/16 Sennosides [Senna] 17.2 mg PO BID 06/07/16 Simethicone Liquid [Mylicon] 40 mg PO BID 06/07/16 Cephalexin [Keflex] 500 mg PO Q6H #28 capsule 12/28/16 Sulfamethoxazole/Trimethoprim [Bactrim Ds -] 1 tab PO BID #14 tablet 12/28/16 Carbamide Peroxide [Debrox] 5 drop AU BID 01/03/17 Zinc Sulfate 220 mg PO DAILY 01/03/17 This patient is new to me today: Yes Date on this admission: 01/05/17 Emergency Visit: Yes ED Registration Date: 01/05/17 Care time: The patient presented to the Emergency Department on the above date and was hospitalized for further evaluation of their emergent condition. Critical Care patient: No - Discharge Referral Referred to [facility] No
[2017-01-05] MEDS: SIMETHICONE 40 MG/0.6 ML BOTTLE PO SCH (12:29)
[2017-01-05 15:03] VITALS: TEMP 97.5
[2017-01-05 17:09] VITALS: BP 120/75; PULSE 101
== END 2017-01-05 17:13 | disposition home or self-care (01) | DRG 388 ==
LOC: JER 17:01 → UNDOADMOB 23:17 → INTOOBSV 23:17 → JERBED 23:17 → J6S 01-02 16:35 → OBSVTOIN 01-05 11:28
PROVIDERS: ADMIT Internal Medicine; ATTEND Nurse Practitioner Family
DX: K56.609 Unspecified intestinal obstruction, unspecified as to partial versus complete obstruction (principal); G80.0 Spastic quadriplegic cerebral palsy; K59.8 Other specified functional intestinal disorders; K80.20 Calculus of gallbladder without cholecystitis without obstruction; F31.9 Bipolar disorder, unspecified; G40.909 Epilepsy, unspecified, not intractable, without status epilepticus; K59.01 Slow transit constipation; R00.0 Tachycardia, unspecified; R50.9 Fever, unspecified; K21.9 Gastro-esophageal reflux disease without esophagitis; F70 Mild intellectual disabilities
CPT/HCPCS: 36415; 71010-TC; 74000-TC; 74176-TC; 76705-TC; 80048; 80053; 81003; 82550; 82553; 82977; 83605; 83690; 83735; 84100; 84443; 84484; 85025; 85027; 85610; 86850; 86900; 86901; 87040; 87045; 87046; 87086; 87186; 99284-25; G0378; J1644; J2794

== ENCOUNTER 2017-01-17 15:21 | Emergency (ER) | payer OTHER ==
[2017-01-17 15:33] VITALS: BMI 26.6
--- NOTE | 2017-01-17 17:22 | PDOC ---
History of Present Illness - General Chief Complaint: Back Pain Stated Complaint: INJURY Time Seen by Provider: 01/17/17 15:44 - History of Present Illness Initial Comments: 01/17/17 17:15 21 yo M with h/o cerebral palsy, spastic quadraparesis, mild ID, GERD, and bipolar disorder who arrives from [facility] with worsening back pain. Patient reports onset of upper back pain following controlled fall upon transfer to bed 1 week ago. States that he was being transferred to wheelchair from bed during day school at care facility when the pt. slid between the health aides arms and pt. reports hitting the back of his neck/back on the bed and sliding onto the care provider. Denies head trauma, lightheadedness, dizziness, new onset sensory motor disturbances, N/V, DOBSON, vision changes. Denies analgesia OTC, or anticoagulation. Past History - Past Medical History Allergies/Adverse Reactions: Allergies Allergy/AdvReac Type Severity Reaction Status Date / Time No Known Allergies Allergy Verified 01/17/17 15:25 Home Medications: Ambulatory Orders Acetaminophen 650 mg PO Q4H PRN 06/07/16 Albuterol Sulfate Liquid [Ventolin Oral Solution -] 4 mg PO TID 06/07/16 Ascorbic Acid [C-1000] 1,000 mg PO DAILY 06/07/16 Baclofen 30 mg PO Q8H PRN 06/07/16 Bupropion HCl [Wellbutrin -] 100 mg PO HS 06/07/16 Fluticasone Propionate [Flovent Diskus] 50 mcg IH BID 06/07/16 Glycolic Acid 100 ml PO TID 06/07/16 Grape Seed Extract [Grape Seed] 100 mg PO DAILY 06/07/16 Loperamide HCl [Loperamide] 2 mg PO Q4H PRN 06/07/16 Melatonin 3 mg PO HS 06/07/16 Multivitamin [Poly-Vitamin] 1 each PO DAILY 06/07/16 Quetiapine Fumarate [Quetiapine Fumarate ER] 300 mg PO TID 06/07/16 Risperidone 2 mg PO TID 06/07/16 Sennosides [Senna] 17.2 mg PO BID 06/07/16 Simethicone Liquid [Mylicon Liquid -] 40 mg PO BID 06/07/16 Carbamide Peroxide [Debrox] 5 drop AU BID 01/03/17 Zinc Sulfate 220 mg PO DAILY 01/03/17 Mineral Oil Enema [Fleet Mineral Oil Rectal Enema -] 133 ml [place] Q48H #7 bottle Polyethylene Glycol 3350 [Miralax 119 gm Btl -] 17 gm PO DAILY #7 bottle Unobtainable 01/17/17 Anemia: No Asthma: No Cancer: No Cardiac Disorders: No CVA: No COPD: No CHF: No Dementia: No Diabetes: No GI Disorders: Yes (GERD) Disorders: No HTN: No Hypercholesterolemia: No Liver Disease: No Psychiatric Problems: Yes (DEPRESSION W.PHSYCHOTIC FEATURES,BIPOLAR) Seizures: Yes Thyroid Disease: No - Surgical History Abdominal Surgery: No Appendectomy: No Cardiac Surgery: No Cholecystectomy: No Lung Surgery: No Neurologic Surgery: No Orthopedic Surgery: No - Immunization History Immunization Up to Date: Yes - Suicide/Smoking/Psychosocial Hx Smoking History: Never smoked Have you smoked in the past 12 months: No Hx Alcohol Use: No Drug/Substance Use Hx: No Substance Use Type: None Hx Substance Use Treatment: No Review of Systems - Review of Systems Comments:: 01/17/17 17:22 GENERAL/CONSTITUTIONAL: No fever or chills. No weakness. HEAD, EYES, EARS, NOSE AND THROAT: No change in vision. No ear pain or discharge. No sore throat. CARDIOVASCULAR: No chest pain or shortness of breath RESPIRATORY: No cough, wheezing, or hemoptysis. GASTROINTESTINAL: No nausea, vomiting, diarrhea or constipation. GENITOURINARY: No dysuria, frequency, or change in urination. MUSCULOSKELETAL: + Neck and Back pain. No joint or muscle swelling or pain. SKIN: No rash NEUROLOGIC: No headache, vertigo, loss of consciousness, or change in strength/ sensation. ENDOCRINE: No increased thirst. No abnormal weight change HEMATOLOGIC/LYMPHATIC: No anemia, easy bleeding, or history of blood clots. ALLERGIC/IMMUNOLOGIC: No hives or skin allergy. *Physical Exam - Vital Signs Last Vital Signs Temp Pulse Resp BP Pulse Ox 97.8 F 118 H 22 112/72 98 01/17/17 15:26 01/17/17 15:26 01/17/17 15:26 01/17/17 15:26 01/17/17 15:26 - Physical Exam Comments: 01/17/17 17:28 GENERAL: Awake, alert, and fully oriented, in no acute distress HEAD: No signs of trauma, normocephalic, atraumatic EYES: PERRLA, EOMI, sclera anicteric, conjunctiva clear ENT: hearing grossly normal, nares patent, oropharynx clear without exudates. Moist mucosa NECK: Limited mobility and active ROM 2/2 spastic quadraparesis and pain. Midline cervical and thoracic T 4-5 tenderness to palpation. Absent bony deformity. supple, no JVD, or masses LUNGS: No distress, speaks full sentences, clear to auscultation bilaterally HEART: Regular rate and rhythm, normal S1 and S2, no murmurs, rubs or gallops, peripheral pulses normal and equal bilaterally. EXTREMITIES : Normal inspection, Normal range of motion, no edema. No clubbing or cyanosis. Neuro: CN2-12 intact. LE gross motor strength 0/5. UE 2/5 motor strength. SKIN: Warm, Dry, normal turgor, no rashes or lesions noted. Medical Decision Making - Medical Decision Making 01/17/17 17:34 21 yo M with h/o cerebral palsy, spastic quadraparesis, mild ID, GERD, and bipolar disorder who arrives from [facility] with worsening back pain. following controlled fall upon transfer to bed 1 week ago. Reports hitting the back of his neck/back on the bed and sliding onto the care provider. Denies head trauma, lightheadedness, dizziness, new onset sensory motor disturbances, N/V, DOBSON, vision changes. Physical exam noteable for cervical and T4/T5 spinal and paraspinal ttp. No obvious bony deformity noted. Hemodynamically stable. Will obtain cervical and thoracic CT to r/o fracture or acute injury. ED Course: 01/17/17 20:16 CT spine cervical and thoracic: No acute fracture. Stable discharge with return precautions. *DC/Admit/Observation/Transfer Diagnosis at time of Disposition: Neck pain - Discharge Dispostion Disposition: HOME Condition at time of disposition: Stable Admit: No - Referrals Referrals: Gwyn Ordonez [Primary Care Provider] - - Patient Instructions Printed Discharge Instructions: DI for Neck Sprain Additional Instructions: Please return to the emergency department if you experience worsening or concerning symptoms. Please follow up with your primary care physician within the following week. - Post Discharge Activity - Attestations Physician Attestion: 01/17/17 20:16 I attest to the information provided in this handout.
--- NOTE | 2017-01-17 18:40 | PDOC ---
Attending Attestation - Resident Resident Name: Vince Pabon - ED Attending Attestation I have performed the following: I have examined & evaluated the patient, The case was reviewed & discussed with the resident, I agree w/resident's findings & plan, Exceptions are as noted - HPI HPI: 01/17/17 18:38 21M with cerebral palsy, spastic quadraparesis, mild ID, GERD, and bipolar disorder, presenting to ER with 1 week of neck and upper back pain. Pt states he was being transferred into bed from his wheelchair when his aide let go of him, causing him to hit his back against the bed. He was caught before he fell to the ground and denies headstrike/LOC. Pt states that he has had pain in his upper back ever since but denies any new weakness/numbness/tingling. - Physicial Exam PE: 01/17/17 18:40 "GENERAL: Awake, alert, and fully oriented, in no acute distress HEAD: No signs of trauma EYES: PERRLA, EOMI, sclera anicteric, conjunctiva clear ENT: Auricles normal inspection, hearing grossly normal, nares patent, oropharynx clear without exudates. Moist mucosa NECK: mild cervical and thoracic paraspinal tenderness with no stepoffs or obvious deformities LUNGS: Breath sounds equal, clear to auscultation bilaterally. No wheezes, and no crackles HEART: Regular rate and rhythm, normal S1 and S2, no murmurs, rubs or gallops ABDOMEN: Soft, nontender, normoactive bowel sounds. No guarding, no rebound. No masses EXTREMITIES: Normal range of motion, no edema. No clubbing or cyanosis. No cords, erythema, or tenderness NEUROLOGICAL: Cranial nerves II through XII grossly intact. 0/5 strength in BLE , 2/5 strength in BUE, sensation intact to light touch all extremities SKIN: Warm, Dry, normal turgor, no rashes or lesions noted. " - Medical Decision Making 01/17/17 18:41 21 M with neck and back pain x 1 week after falling onto bed. No deformities noted on exam, but given mild paraspinal tenderness, will obtain cervical and thoracic spine imaging to r/o acute fx. - C-spine and T-spine CT Pt signed out to Dr. Cooney at 7PM, dispo pending imaging and re-evaluation of pain. Case discussed in detail with oncoming Emergency Physician including history, physical exam and ancillary studies. Oncoming Emergency Physician has assumed care for the patient and will complete the evaluation and treatment. Patient is aware of the plan.
[2017-01-17 20:41] VITALS: BP 114/76; PULSE 85; TEMP 98.4
== END 2017-01-17 22:10 ==
LOC: JERFT 15:21 → JER 15:21
DX: M54.2 Cervicalgia (principal); M54.6 Pain in thoracic spine; W18.39XA Other fall on same level, initial encounter; Y93.89 Activity, other specified; Y92.112 Bedroom in children's home and orphanage as the place of occurrence of the external cause; G80.0 Spastic quadriplegic cerebral palsy; F70 Mild intellectual disabilities; F31.9 Bipolar disorder, unspecified
CPT/HCPCS: 72125-TC; 72128-TC; 99282-25

== ENCOUNTER 2017-03-31 12:44 | Emergency (ER) | payer OTHER ==
[2017-03-31 12:55] VITALS: BMI 29.0
[2017-03-31 16:48] VITALS: BP 131/74; PULSE 100
--- NOTE | 2017-03-31 17:15 | PDOC ---
History of Present Illness - General History Source: Patient Exam Limitations: No Limitations - History of Present Illness Initial Comments: 03/31/17 20:13 Patient is a 21 year old male with a significant past medical history Cerebral palsy, Mild intellectual disability, Depression recurrent with psychotic features, Bipolar disorder, hallucinations, CP, reflux, double hernia, pulmonary infection, seizure, baclofen pump who presents to the ED with complaints of of abdominal pain that began earlier this week. Patient reports experiencing slight fever secondary to abdominal pain. As per bedside aid, patient experienced 1 episode of vomiting earlier this afternoon, stating it got stuck in his throat. Patient reports currently feeling nauseous while in the ED. Denies chest pain, Sob. Denies contact with sick individuals, out of state travelling. Denies any other symptoms. Allergies: None Social history: Lives at [facility]. No smoking. No alcohol. No illicit drugs. Surgical history: implanted baclofen pump PMD: Dr. Duran <Jan Mills - Last Filed: 03/31/17 20:13> <Dorothy Coley - Last Filed: 04/01/17 02:01> - General Chief Complaint: Pain Stated Complaint: fever, abd pain, bloatiness Time Seen by Provider: 03/31/17 16:28 Past History <Jan Mills - Last Filed: 03/31/17 20:13> - Past Medical History Anemia: No Asthma: No Cancer: No Cardiac Disorders: No CVA: No COPD: No CHF: No Dementia: No Diabetes: No GI Disorders: Yes (GERD) Disorders: No HTN: No Hypercholesterolemia: No Liver Disease: No Psychiatric Problems: Yes (DEPRESSION W.PHSYCHOTIC FEATURES,BIPOLAR) Seizures: Yes Thyroid Disease: No Other medical history: Bipolar, fecal impaction - Surgical History Abdominal Surgery: No Appendectomy: No Cardiac Surgery: No Cholecystectomy: No Lung Surgery: No Neurologic Surgery: No Orthopedic Surgery: No - Immunization History Immunization Up to Date: Yes - Suicide/Smoking/Psychosocial Hx Smoking History: Never smoked Have you smoked in the past 12 months: No Information on smoking cessation initiated: No Hx Alcohol Use: No Drug/Substance Use Hx: No Substance Use Type: None Hx Substance Use Treatment: No <Dorothy Coley - Last Filed: 04/01/17 02:01> - Past Medical History Allergies/Adverse Reactions: Allergies Allergy/AdvReac Type Severity Reaction Status Date / Time No Known Allergies Allergy Verified 03/31/17 12:55 Home Medications: Ambulatory Orders Acetaminophen [Tylenol -] 650 mg PO Q4H PRN 03/31/17 Albuterol Sulfate Liquid [Ventolin *Liquid*] 10 ml PO TID 03/31/17 Ascorbic Acid [Vitamin C] 1,000 mg PO DAILY 03/31/17 Baclofen 20 mg PO TID PRN 03/31/17 Bupropion HCl [Bupropion HCl Sr] 200 mg PO DAILY 03/31/17 Carbamide Peroxide [Debrox] 5 drop OU BID 03/31/17 Grape Seed Extract [Grape Seed] 50 mg PO DAILY 03/31/17 Loperamide HCl [Loperamide] 2 mg PO Q4HWA PRN 03/31/17 Melatonin 6 mg PO ASDIR PRN 03/31/17 Melatonin/Pyridoxine HCl (B6) [Melatonin 3 mg Tablet] 1 each PO HS 03/31/17 Multivitamin [One Daily] 1 each PO DAILY 03/31/17 Polyethylene Glycol 3350 [Glycolax] 119 gm PO TID 03/31/17 Quetiapine Fumarate [Seroquel -] 300 mg PO TID 03/31/17 Risperidone [Risperdal -] 2 mg PO TID 03/31/17 Sennosides [Senna] 2 tab PO BID 03/31/17 Simethicone Liquid [Mylicon] 40 mg PO BID 03/31/17 Zinc Sulfate 20 mg PO DAILY 03/31/17 Review of Systems - Review of Systems Able to Perform ROS?: Yes Comments:: 03/31/17 20:13 CONSTITUTIONAL: Absent: fever, chills, diaphoresis, generalized weakness, malaise, loss of appetite HEENT: Absent: rhinorrhea, nasal congestion, throat pain, throat swelling, difficulty swallowing, mouth swelling, ear pain, eye pain, visual Changes CARDIOVASCULAR: Absent: chest pain, syncope, palpitations, irregular heart rate, lightheadedness , peripheral edema RESPIRATORY: Absent: cough, shortness of breath, dyspnea with exertion, orthopnea, wheezing, stridor, hemoptysis GASTROINTESTINAL: +Abdominal pain. +Nausea. +Vomiting. +Abdominal distension Absent: diarrhea, constipation, melena, hematochezia GENITOURINARY: Absent: dysuria, frequency, urgency, hesitancy, hematuria, flank pain, genital pain MUSCULOSKELETAL: Absent: myalgia, arthralgia, joint swelling SKIN: Absent: rash, itching, pallor HEMATOLOGIC/IMMUNOLOGIC: Absent: easy bleeding, easy bruising, lymphadenopathy, frequent infections ENDOCRINE: Absent: unexplained weight gain, unexplained weight loss, heat intolerance, cold intolerance NEUROLOGIC: Absent: headache, focal weakness or paresthesias, dizziness, unsteady gait, seizure, mental status changes, bladder or bowel incontinence PSYCHIATRIC: Absent: anxiety, depression, suicidal or homicidal ideation, hallucinations. All Other Systems: Reviewed and Negative <GeneJan - Last Filed: 03/31/17 20:13> *Physical Exam - Vital Signs Last Vital Signs Temp Pulse Resp BP Pulse Ox 99.1 F 100 H 16 131/74 98 03/31/17 18:28 03/31/17 16:47 03/31/17 16:47 03/31/17 16:47 03/31/17 16:47 - Physical Exam Comments: 03/31/17 20:14 GENERAL: +Bed bound. +Verbal non ambulatory. Well developed, well nourished. Awake and alert. No acute distress. HEENT: +Dry mucous membreane. Normocephalic, atraumatic. PERRLA, EOMI. No conjunctival pallor. Sclera are non- icteric. Moist mucous membranes. Oropharynx is clear. NECK: Supple. Full ROM. No JVD. Carotid pulses 2+ and symmetric, without bruits. No thyromegaly. No lymphadenopathy. CARDIOVASCULAR: +Tachycardic. Regular rate and rhythm. No murmurs, rubs, or gallops. Distal pulses are 2+ and symmetric. PULMONARY: +Rhonchorous breath sounds bilaterally. No evidence of respiratory distress. Lungs clear to auscultation bilaterally. No wheezing, rales or rhonchi. ABDOMINAL: +Distended abdomen Soft. Non-tender.. No rebound or guarding. No organomegaly. Normoactive bowel sounds. MUSCULOSKELETAL Normal range of motion at all joints. No bony deformities or tenderness. No CVA tenderness. EXTREMITIES: +Cerebral palsy. +Quadroplesia. +Spastic No cyanosis. No clubbing. No edema. No calf tenderness. SKIN: Warm and dry. Normal capillary refill. No rashes. No jaundice. NEUROLOGICAL: +Alert and conversant Alert, awake, appropriate. Cranial nerves 2-12 intact. No deficits to light touch and temperature in face, upper extremities and lower extremities. No motor deficits in the in face, upper extremities and lower extremities. Normoreflexic in the upper and lower extremities. Normal speech. Toes are down- going bilaterally. Gait is normal without ataxia. PSYCHIATRIC: Cooperative. Good eye contact. Appropriate mood and affect. <Jan Mills - Last Filed: 03/31/17 20:13> - Vital Signs Last Vital Signs Temp Pulse Resp BP Pulse Ox 99 F 100 H 16 131/74 98 03/31/17 12:52 03/31/17 16:47 03/31/17 16:47 03/31/17 16:47 03/31/17 16:47 <Dorothy Coley - Last Filed: 04/01/17 02:01> ED Treatment Course - LABORATORY CBC & Chemistry Diagram: 03/31/17 18:00 03/31/17 18:00 - ADDITIONAL ORDERS Additional order review: Laboratory Results 03/31/17 18:00 Sodium Cancelled Potassium Cancelled Chloride Cancelled Carbon Dioxide Cancelled Anion Gap Cancelled BUN Cancelled Creatinine Cancelled Creat Clearance w eGFR Cancelled Random Glucose Cancelled Calcium Cancelled Total Bilirubin Cancelled AST Cancelled ALT Cancelled Alkaline Phosphatase Cancelled Total Protein Cancelled Albumin Cancelled Lipase Cancelled 03/31/17 18:25 Influenza Types A,B Antigen (LIANA) - Final Nasopharyngeal Swab - Final 03/31/17 18:00 RBC 5.12 MCV 87.7 MCHC 32.5 RDW 13.3 MPV 8.2 D Neutrophils % 62.4 D Lymphocytes % 21.0 D Monocytes % 14.1 H Eosinophils % 1.9 Basophils % 0.6 <Jan Mills - Last Filed: 03/31/17 20:13> - LABORATORY CBC & Chemistry Diagram: 03/31/17 18:00 03/31/17 20:50 <Dorothy Coley - Last Filed: 04/01/17 02:01> Medical Decision Making - Medical Decision Making 03/31/17 17:47 rectal temp=99.1 21 yo male BIBA from [facility] facility for abd distension and pain Significant PMH Cerebral palsy,spastic quadraparesis,seizures,asthma plan cbc,comp,UA,UC,influenza culture,IVF , ct scan <Dorothy Coley - Last Filed: 04/01/17 02:01> *DC/Admit/Observation/Transfer - Attestations Scribe Attestion: 03/31/17 20:14 Documentation prepared by Jan Mills, acting as certified medical asst for Dorothy Coley MD/DO. <Jan Mills - Last Filed: 03/31/17 20:13> <Dorothy Coley - Last Filed: 04/01/17 02:01> Diagnosis at time of Disposition: Fecal impaction - Discharge Dispostion Disposition: HOME Condition at time of disposition: Stable - Referrals Referrals: Baylee Duran MD [Primary Care Provider] - - Patient Instructions Printed Discharge Instructions: DI for Fecal Impaction Additional Instructions: please continue with his bowel regiment - Post Discharge Activity
[2017-03-31] MEDS ORDERED: SODIUM CHLORIDE 500 ML IV STA (17:28)
[2017-03-31] MEDS ORDERED: ONDANSETRON 4 MG/2 ML VIAL IVPUSH STA (17:28)
[2017-03-31 18:28] VITALS: TEMP 99.1
[2017-03-31 18:30] LABS: HEMATOCRIT 44.9 % (35.4-49); HEMOGLOBIN 14.6 GM/dL (11.7-16.9); MCH 28.5 pg (25.7-33.7); MCHC 32.5 g/dl (32.0-35.9); MEAN CELL VOLUME 87.7 fl (80-96); MEAN PLT VOLUME 8.2 fl (7.5-11.1); PLATELET COUNT 133 K/MM3 (134-434); RBC 5.12 M/mm3 (4.00-5.60); RDW 13.3 % (11.9-15.9); WHITE BLOOD COUNT 5.4 K/mm3 (4.0-10.0)
[2017-03-31 19:24] LABS: BASO % 0.6 % (0-2.0); EOS % 1.9 % (0-4.5); MONO % 14.1 % (3.8-10.2); NEUT % 62.4 % (42.8-82.8)
[2017-03-31] MEDS ORDERED: MINERAL OIL ENEMA 133 ML ENEMA PR ONE ×2 (20:22→20:23)
[2017-03-31 22:00] LABS: ALBUMIN 3.9 g/dl (3.4-5.0); BLOOD UREA NITROGEN 10 mg/dL (7-18); CO2 26 mmol/L (21-32); CREATININE 0.5 mg/dL (0.7-1.3); GLUCOSE,RANDOM 84 mg/dL (74-106); SGOT/AST 20 U/L (15-37); SGPT/ALT 42 U/L (12-78)
[2017-03-31 22:02] LABS: ALK PHOS 131 U/L (45-117); BILIRUBIN,TOTAL 0.5 mg/dL (0.2-1.0); TOT PROT 7.2 g/dl (6.4-8.2)
[2017-04-01 00:56] LABS: ANION GAP 10 (8-16); CHLORIDE 107 mmol/L (98-107); SODIUM 143 mmol/L (136-145)
[2017-04-01] MEDS ORDERED: LACTULOSE 20 GM/30 ML UDC (FOR ORAL USE ONLY) PO ONE (02:28)
[2017-04-01] MEDS ORDERED: LACTULOSE 20 GM/30 ML UDC (FOR ORAL USE ONLY) ONE (03:18)
--- NOTE | 2017-04-01 07:59 | EKG ---
Test Reason : Blood Pressure : / mmHG Vent. Rate : 099 BPM Atrial Rate : 099 BPM P-R Int : 112 ms QRS Dur : 098 ms QT Int : 366 ms P-R-T Axes : 030 014 030 degrees QTc Int : 469 ms NORMAL SINUS RHYTHM POSSIBLE LEFT ATRIAL ENLARGEMENT INCOMPLETE RIGHT BUNDLE BRANCH BLOCK NONSPECIFIC T WAVE ABNORMALITY PROLONGED QT ABNORMAL ECG WHEN COMPARED WITH ECG OF 15-MAY-2016 15:31, NO SIGNIFICANT CHANGE WAS FOUND Confirmed by MERCY CLINTON MD ([id number]) on 04/01/2017 7:59:16 AM Referred By: Confirmed By:MERCY CLINTON MD
== END 2017-04-01 03:24 ==
LOC: JER 12:44
DX: K59.09 Other constipation (principal); G80.0 Spastic quadriplegic cerebral palsy; K21.9 Gastro-esophageal reflux disease without esophagitis; F31.9 Bipolar disorder, unspecified
CPT/HCPCS: 36415; 74176-TC; 80053; 85025; 87804; 93005; 93010; 99282-25

== ENCOUNTER 2017-04-01 13:54 | Emergency (ER) | payer OTHER ==
[2017-04-01 14:22] VITALS: BMI 27.3
--- NOTE | 2017-04-01 17:49 | PDOC ---
Attending Attestation - Medical Decision Making 04/01/17 19:39 The patient had a bowel movement while in the ED. <Elias Mcneal - Last Filed: 04/01/17 19:38> - Resident Resident Name: Camacho,Mary - ED Attending Attestation I have performed the following: I have examined & evaluated the patient, The case was reviewed & discussed with the resident, I agree w/resident's findings & plan, Exceptions are as noted - HPI HPI: 04/01/17 17:46 21yo male with CP from a long term for eval of constipation and vomiting x 2. Seen in the ED last night for constipation. Had fecal impaction on CT. Given lactulose last night after an enema. Did have bm overnight in the ED. Had vomiting x 2 after lunch today. Does admit to not liking what was served for lunch. No abd pain. No f/c. No cough. Asking to drink water. - Physicial Exam PE: 04/01/17 17:49 Gen: awake, slow speech, at baseline MS Heent: PERRl, EOMI, dry mm Heart: +s1s2 reg Lungs: cta b/l Abd: R flank baclofen stimulator, abd soft, nt/nd +bs Rectal: vault empty, no bleeding ext: contracted UE, extended LE, radial and pedal pulses intact, no rash Neuro: at baseline ms - Medical Decision Making 04/01/17 17:44 a/p: 21yo male with CP with vomiting x 2 today -seen in the ED last night for constipation -ct showed fecal impaction -given lactulose and enema last night -had bm last night -tolerated breakfast, vomiting after lunch -passing gas -will obtain xrays -rectal exam - vault empty, no bleeding 04/01/17 20:21 pt with small bm in the ED tolerated oral intake stable for d/c back to long term will send with lactulose for a few days and recommend follow up with PMD/GI <Marcella Hudson - Last Filed: 04/01/17 20:22>
[2017-04-01] MEDS ORDERED: LACTULOSE 20 GM/30 ML UDC (FOR ORAL USE ONLY) ONE (18:26)
[2017-04-01] MEDS ORDERED: SODIUM PHOSPHATE/NA BIPHOS 133 ML ENEMA PR ONE (18:32)
[2017-04-01] MEDS ORDERED: LACTULOSE 20 GM/30 ML UDC (FOR ORAL USE ONLY) PO ONE (18:32)
--- NOTE | 2017-04-01 19:34 | PDOC ---
History of Present Illness - General Chief Complaint: Nausea/Vomiting Stated Complaint: Nausea/Vomiting Time Seen by Provider: 04/01/17 16:42 History Source: Patient, Care Provider, Parent(s) Exam Limitations: No Limitations - History of Present Illness Initial Comments: This is a 21 YOM with h/o chronic constipation (has been on many different medications at his SNF for bowel regimen including MiraLax and lactulose), scoliosis, CP, spastic quadriplegia, GERD, and bipolar disorder who p/w constipation and abdominal pain. He was seen in the ED here at [facility] yesterday night, had lactulose and a Fleets enema, and has since had a bowel movement but now continues to have abdominal pain. The mother notes that he did feel well this morning, ate breakfast and lunch, but then had projectile vomiting after eating something for lunch that he did not like. The patient and family deny any fever, chills, bloody or black stool, rashes, or other symptoms. Past History - Past Medical History Allergies/Adverse Reactions: Allergies Allergy/AdvReac Type Severity Reaction Status Date / Time No Known Allergies Allergy Verified 04/01/17 14:01 Home Medications: Ambulatory Orders Acetaminophen [Tylenol -] 650 mg PO Q4H PRN 03/31/17 Albuterol Sulfate Liquid [Ventolin *Liquid*] 10 ml PO TID 03/31/17 Ascorbic Acid [Vitamin C] 1,000 mg PO DAILY 03/31/17 Baclofen 20 mg PO TID PRN 03/31/17 Bupropion HCl [Bupropion HCl Sr] 200 mg PO DAILY 03/31/17 Carbamide Peroxide [Debrox] 5 drop OU BID 03/31/17 Grape Seed Extract [Grape Seed] 50 mg PO DAILY 03/31/17 Loperamide HCl [Loperamide] 2 mg PO Q4HWA PRN 03/31/17 Melatonin 6 mg PO ASDIR PRN 03/31/17 Melatonin/Pyridoxine HCl (B6) [Melatonin 3 mg Tablet] 1 each PO HS 03/31/17 Multivitamin [One Daily] 1 each PO DAILY 03/31/17 Polyethylene Glycol 3350 [Glycolax] 119 gm PO TID 03/31/17 Quetiapine Fumarate [Seroquel -] 300 mg PO TID 03/31/17 Risperidone [Risperdal -] 2 mg PO TID 03/31/17 Sennosides [Senna] 2 tab PO BID 03/31/17 Simethicone Liquid [Mylicon] 40 mg PO BID 03/31/17 Zinc Sulfate 20 mg PO DAILY 03/31/17 Lactulose (Oral Use) [Cephulac -] 20 gm PO BID PRN #14 udc 04/01/17 Anemia: No Asthma: No Cancer: No Cardiac Disorders: No CVA: No COPD: No CHF: No Dementia: No Diabetes: No GI Disorders: Yes (GERD) Disorders: No HTN: No Hypercholesterolemia: No Liver Disease: No Psychiatric Problems: Yes (DEPRESSION W.PHSYCHOTIC FEATURES,BIPOLAR) Seizures: Yes Thyroid Disease: No - Surgical History Abdominal Surgery: No Appendectomy: No Cardiac Surgery: No Cholecystectomy: No Lung Surgery: No Neurologic Surgery: No Orthopedic Surgery: No - Immunization History Immunization Up to Date: Yes - Suicide/Smoking/Psychosocial Hx Smoking History: Never smoked Have you smoked in the past 12 months: No Information on smoking cessation initiated: No Hx Alcohol Use: No Drug/Substance Use Hx: No Substance Use Type: None Hx Substance Use Treatment: No *Physical Exam - Vital Signs Last Vital Signs Temp Pulse Resp BP Pulse Ox 82 18 135/70 98 04/01/17 18:48 04/01/17 18:48 04/01/17 18:48 04/01/17 18:48 - Physical Exam General Appearance: Yes: Nourished, Appropriately Dressed, Other (very pleasant and interactive adult male with developmental and physical delay, answers questions when he can, smiling). No: Apparent Distress HEENT: positive: EOMI, Normal Voice, Hearing Grossly Normal, Other (dry lips but otherwise mm moist, occasional cough). negative: Scleral Icterus (R), Scleral Icterus (L), Nasal Congestion Neck: positive: Trachea midline, Supple. negative: Tender, Rigid Respiratory/Chest: positive: Lungs Clear, Normal Breath Sounds. negative: Respiratory Distress, Crackles, Rhonchi, Stridor, Wheezing Cardiovascular: positive: Regular Rhythm, Regular Rate. negative: Murmur Gastrointestinal/Abdominal: positive: Normal Bowel Sounds, Soft, Other ( protuberant but not distended or right, RLQ with well-healed scar). negative: Tender, Organomegaly, Pulsatile Mass, Guarding Rectal Exam: positive: normal exam, normal rectal tone, other (no stool in the rectal vault). negative: melena, hemorrhoids Musculoskeletal: positive: Normal Inspection. negative: Decreased Range of Motion, Vertebral Tenderness Extremity: positive: Normal Capillary Refill, Normal Inspection, Normal Range of Motion, Other (chronic muscle wasting, BLE held in external rotation at hip with flexion at the knee, BUE held in contraction at elbow and wrists). negative: Tender, Cyanosis Integumentary: positive: Normal Color, Dry, Warm. negative: Erythema, Rash, Bruising Neurologic: positive: billet worker II-XII NML intact (grossly), Alert, Normal Mood/Affect , Normal Response ED Treatment Course - Medications Given in the ED: ED Medications Discontinued Medications Generic Name Dose Route Start Last Admin Trade Name Sawyer PRN Reason Stop Dose Admin Lactulose 20 gm 04/01/17 18:32 04/01/17 18:37 Cephulac (Oral Use) PO 04/01/17 18:33 20 gm ONCE ONE Administration Sodium Phosphate 133 ml 04/01/17 18:32 04/01/17 18:37 Fleet Adult Rectal Enema - ID 04/01/17 18:33 133 ml ONCE ONE Administration Medical Decision Making - Medical Decision Making 21 YOM with chronic struggles with constipation who returns to the ED c/o constipation. Also had one reported episode of vomiting today after eating a lunch he did not like. On exam his VS are wnl, patient in no distress, abdomen protuberant but not tight or tender. No stool in rectal vault on rectal exam, no blood. Ordered is a dose of lactulose and a Fleets enema, also abdominal x-ray. 04/01/17 20:42 Patient had a small hard bowel movement, followed 30 min later by small loose bowel movement. 04/01/17 20:46 Spoke with patient's RN at [facility] as a courtesy call to discuss ED visit and recommendations. Called patient's PCP and left as a similar courtesy call. E-Rx sent to [facility] pharmacy for lactulose bid for constipation. Return precautions are discussed. Patient is discharged back to his facility. 04/01/17 21:06 Called and spoke with the patient's PCP. She expresses concern over his continued constipation and possibility of him bouncing back again tomorrow. She also expresses concern about the vomiting that the patient had after lunch. I noted that we were not able to see any of the vomiting during the patient's visit. We discussed that the patient had been comfortable and happy with nontender abdomen during his ED stay. We discussed that he had two small bowel movements here in the ED. I did let her know that we sent E-Rx for lactulose to SNF. She explains that the patient has seen a GI doctor in the past and has just switched to a new GI doctor. I tell her that we are hopeful that bid lactulose will relieve the constipation , but he should return to ED if worsening. *DC/Admit/Observation/Transfer Diagnosis at time of Disposition: Constipation Qualifiers: Constipation type: unspecified constipation type Qualified Code(s): K59.00 - Constipation, unspecified Vomiting Qualifiers: Vomiting type: unspecified Vomiting Intractability: non-intractable Nausea presence: unspecified Qualified Code(s): R11.10 - Vomiting, unspecified - Discharge Dispostion Disposition: CARE HOME FACILITY Condition at time of disposition: Stable Admit: No - Prescriptions Prescriptions: Lactulose (Oral Use) [Cephulac -] 20 gm PO BID PRN #14 udc PRN Reason: Constipation - Referrals Referrals: Baylee Duran MD [Primary Care Provider] - - Patient Instructions Printed Discharge Instructions: DI for Constipation, Lactulose Additional Instructions: Abel was seen in the ER for constipation, as well as an episode of vomiting today. We did an abdomen x-ray which did show continued constipation with stool in the colon. We gave him lactulose again and he had a small bowel movement here. Please use the prescription we are sending to [facility] for lactulose. Use this twice a day for 7 days or until he develops diarrhea or has relief of his constipation. Please return to the ER for any new or worsening symptoms. - Post Discharge Activity
[2017-04-01 20:36] VITALS: BP 132/70; PULSE 80
== END 2017-04-01 22:13 ==
LOC: JER 13:54
DX: K59.09 Other constipation (principal); K21.9 Gastro-esophageal reflux disease without esophagitis; F31.9 Bipolar disorder, unspecified; F41.9 Anxiety disorder, unspecified; G80.0 Spastic quadriplegic cerebral palsy
CPT/HCPCS: 36415; 71045-TC-FY; 74019-TC-FY; 74176-TC; 80053; 85025; 87804; 93005; 93010; 99282-25